=== PATIENT | male | born 1950 ===

== ENCOUNTER 2018-07-27 09:11 | Emergency (ER) | payer MEDICARE, OTHER ==
[2018-07-27 09:30] VITALS: RESP 18
--- NOTE | 2018-07-27 09:59 | ED ---
Fall HPI - General Chief Complaint: Fall Stated Complaint: Fall Time Seen by Provider: 07/27/18 09:11 Source: EMS, RN notes reviewed Mode of arrival: EMS - History of Present Illness Initial Comments: This is a 67-year-old male who states he slipped on some ice and fell but hour prior to arrival here. He was riding on the bus for about an hour complain of some back pain and right elbow pain he was brought in by EMS. He states now his elbow and pelvic area hurts no back pain. No loss of consciousness no head neck pain minute cervical collar. The loss of function to his upper or lower extremities. No other complaints or injuries reported MD Complaint: fall - Related Data Home Medications Medication Instructions Recorded Confirmed Cyanocobalamin (Vitamin B-12) 1,000 mcg PO DAILY 07/27/18 07/27/18 [Vitamin B-12] OLANZapine 7.5 mg PO HS 07/27/18 07/27/18 Polyethylene Glycol 3350 [Miralax] 17 gm PO DAILY PRN 07/27/18 07/27/18 Sennosides [Senna] 17.2 mg PO HS PRN 07/27/18 07/27/18 metFORMIN HCL ER [Glucophage Xr] 1,000 mg PO QAM 07/27/18 07/27/18 Previous Rx's Medication Instructions Recorded Ibuprofen 800 mg PO Q6HR PRN #20 tablet 07/27/18 Allergies Allergy/AdvReac Type Severity Reaction Status Date / Time Penicillins Allergy Unknown Verified 07/27/18 10:28 Review of Systems ROS Statement: Those systems with pertinent positive or pertinent negative responses have been documented in the HPI. ROS Other: All systems not noted in ROS Statement are negative. Past Medical History Past Medical History: No Reported History Past Surgical History: No Surgical Hx Reported General Exam - General Exam Comments Initial Comments: This is a well-developed well-nourished awake alert oriented times female he does them straight a Cadet Coma Scale of 15 General appearance: alert, in no apparent distress Head exam: Present: atraumatic, normocephalic, normal inspection Eye exam: Present: normal appearance, PERRL, EOMI. Absent: scleral icterus, conjunctival injection, periorbital swelling ENT exam: Present: normal exam, mucous membranes moist Neck exam: Present: normal inspection, full ROM, other (Cervical collar was in place I did remove it after examination. There is no midline spinous or paraspinous tenderness. There is some mild tenderness palpation to the mid trapezius muscle on the right). Absent: tenderness, meningismus, lymphadenopathy Respiratory exam: Present: normal lung sounds bilaterally. Absent: respiratory distress, wheezes, rales, rhonchi, stridor Cardiovascular Exam: Present: regular rate, normal rhythm, normal heart sounds. Absent: systolic murmur, diastolic murmur, rubs, gallop, clicks GI/Abdominal exam: Present: soft, normal bowel sounds. Absent: distended, tenderness, guarding, rebound, rigid Rectal exam: Present: deferred Extremities exam: Present: normal inspection, full ROM, normal capillary refill , other (Tennis palpation of the right elbow with no step-off or crepitation or is full range of motion. Additionally there is some mild tenderness palpation of the right hip and pelvis area no step-off or crepitation no shortening or rotational lower extremities.). Absent: tenderness, pedal edema, joint swelling , calf tenderness Back exam: Present: normal inspection Neurological exam: Present: alert, oriented X3, CN II-XII intact Psychiatric exam: Present: normal affect, normal mood Skin exam: Present: warm, dry, intact, normal color. Absent: rash Course Vital Signs 07/27/18 09:23 Temperature 98.1 F Pulse Rate 69 Respiratory 18 Rate Blood Pressure 143/68 O2 Sat by Pulse 96 Oximetry Medical Decision Making - Medical Decision Making I did discuss [employer] the patient he will be discharged he does have evidence of right trapezius strain as well as right elbow contusion - Radiology Data Radiology results: report reviewed (I did review the imaging and reports no acute findings.), image reviewed Disposition Clinical Impression: Fall, Contusion of right elbow, Trapezius strain Disposition: HOME SELF-CARE Condition: Good Instructions (If sedation given, give patient instructions): Fall Prevention for Older Adults (ED), Contusion in Adults (ED), Muscle Strain (ED) Prescriptions: Ibuprofen 800 mg PO Q6HR PRN #20 tablet PRN Reason: Pain Is patient prescribed a controlled substance at d/c from ED?: No Referrals: Tommy Jones MD [Primary Care Provider] - 1-2 days
--- NOTE | 2018-07-27 10:17 | XR ---
EXAMINATION TYPE: XR pelvis AP view DATE OF EXAM: 07/27/2018 CLINICAL HISTORY: Right-sided pelvic pain after fall TECHNIQUE: A single AP view of the pelvis is obtained. COMPARISON: None. FINDINGS: There is no acute fracture/dislocation evident in the pelvis. The hip and sacroiliac join ts appear symmetric and unremarkable. The overlying soft tissue appears unremarkable. IMPRESSION: There is no acute fracture or dislocation in the pelvis.
--- NOTE | 2018-07-27 10:20 | XR ---
EXAMINATION TYPE: XR cervical spine comp DATE OF EXAM: 07/27/2018 TECHNIQUE: Frontal, lateral, oblique and open mouth view of the cervical spine are obtained. HISTORY: Right-sided neck pain after a fall COMPARISON: None FINDINGS: The cervical spine is visualized in its entirety from C1 thru the top of T1 level, it is s atisfactory in alignment without evidence of acute fracture or dislocation. The pre-vertebral soft t issue appears within normal limits. Minimal multilevel degenerative disc disease is seen as multileve l uncovertebral hypertrophy. The C1-C2 articulation is within normal limits on the open mouth view. The oblique images are within normal limits. Well-corticated osseous fragments are seen in the erecto r spinae musculature and posterior to the C7 spinous process from prior injury. On the lateral view there are rounded calcifications in the region of the thyroid gland. Thyroid ultr asound is recommended for further evaluation. IMPRESSION: 1. No acute fracture or malalignment is seen in the cervical spine. Minimal multilevel degenerative d isc disease. 2. Rounded calcifications in the region of the thyroid gland. Thyroid ultrasound is recommended for f urther evaluation.
--- NOTE | 2018-07-27 10:22 | XR ---
EXAMINATION TYPE: XR elbow complete RT DATE OF EXAM: 07/27/2018 CLINICAL HISTORY: Right elbow pain after a fall TECHNIQUE: Frontal, lateral and oblique images of the right elbow are obtained. COMPARISON: None FINDINGS: There is no acute fracture/dislocation evident in the right elbow. No abnormal fat pad si gns are seen. The overlying soft tissue appears unremarkable. Atherosclerosis is noted over the vent ral forearm and lower upper extremity IMPRESSION: There is no acute fracture or dislocation in the right elbow.
[2018-07-27 10:39] VITALS: BP 111/78; PULSE 82; TEMP 98
== END 2018-07-27 10:39 | disposition home or self-care (01) ==
LOC: EC 09:11 → EEVIPCON 09:11 → EC 10:39
DX: S50.01XA Contusion of right elbow, initial encounter (principal); S46.811A Strain of other muscles, fascia and tendons at shoulder and upper arm level, right arm, initial encounter; Z79.84 Long term (current) use of oral hypoglycemic drugs; Z79.899 Other long term (current) drug therapy; Z88.0 Allergy status to penicillin; W00.0XXA Fall on same level due to ice and snow, initial encounter; Y93.I9 Activity, other involving external motion; Y92.811 Bus as the place of occurrence of the external cause
CPT/HCPCS: 72050; 72170; 99283

== ENCOUNTER 2018-12-25 08:43 | Emergency (ER) | payer MEDICARE, OTHER ==
[2018-12-25 08:59] VITALS: RESP 18
[2018-12-25 09:28] LABS: Basophils # (A) 0.1 k/uL (0-0.2); Basophils % (A) 1 %; Eosinophils # (A) 0.3 k/uL (0-0.7); Eosinophils % (A) 4 %; HCT 42.8 % (39.0-53.0); HGB 14.1 gm/dL (13.0-17.5); Lymphocytes % (A) 24 %; MCH 29.6 pg (25.0-35.0); MCHC 32.9 g/dL (31.0-37.0); MCV 89.9 fL (80.0-100.0); Monocytes # (A) 0.6 k/uL (0-1.0); Monocytes % (A) 7 %; Neutrophils # (A) 5.4 k/uL (1.3-7.7); Neutrophils % (A) 63 %; Platelet Count 206 k/uL (150-450); RBC 4.76 m/uL (4.30-5.90); RDW 14.1 % (11.5-15.5); WBC 8.6 k/uL (3.8-10.6)
[2018-12-25 09:41] LABS: ALT 25 U/L (21-72); AST 28 U/L (17-59); African American GFR (CKD) >90 (>60 ml/min/1.73 sqM); Albumin 3.9 g/dL (3.5-5.0); Alkaline Phosphatase 75 U/L (38-126); Anion Gap 13 mmol/L; Blood Urea Nitrogen 15 mg/dL (9-20); Calcium 9.2 mg/dL (8.4-10.2); Carbon Dioxide 21 mmol/L (22-30); Chloride 105 mmol/L (98-107); Glucose 142 mg/dL (74-99); Magnesium 1.9 mg/dL (1.6-2.3); Potassium 4.4 mmol/L (3.5-5.1); Sodium 139 mmol/L (137-145); Total Bilirubin 0.4 mg/dL (0.2-1.3); Total Protein 6.9 g/dL (6.3-8.2)
--- NOTE | 2018-12-25 10:04 | CT ---
EXAMINATION TYPE: CT brain wo con DATE OF EXAM: 12/25/2018 HISTORY: Probable seizure. Pain. CT DLP: 1099.4 mGycm. Automated Exposure Control for Dose Reduction was Utilized. TECHNIQUE: CT scan of the head is performed without contrast. COMPARISON: None. FINDINGS: There is no acute intracranial hemorrhage or midline shift identified. There is diffuse v entricular and sulcal prominence consistent with diffuse age-related cerebral atrophy. 4 prominent at rophy is noted over the bilateral frontal lobes There is low-attenuation in the periventricular white matter consistent with chronic small vessel ischemic change. The globes are intact and the visualiz ed sinuses are clear. IMPRESSION: No acute intracranial hemorrhage or midline shift. There is mild diffuse age-related ce rebral atrophy and chronic small vessel ischemic change with more moderate bilateral frontal lobe atr ophy noted.
--- NOTE | 2018-12-25 10:29 | ED ---
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 According to the patient is not had a seizure history. According to his medication list is not on any antiseizure medications. I see no other i ndication in the previous charting the patient has had previous seizure. According to EMS the patient was thought to be post ictal after but he also is at his baseline somewhat confused. Patient denies headache patient denies any numbness weakness. Patient denies any chest pain difficulty breathing first breath per patient denies any palpitations. Patient denies abdominal pain patient denies any recent fever chills or cough. Patient denies any nausea or vomiting. Or diarrhea. - Related Data Home Medications Medication Instructions Recorded Confirmed Cyanocobalamin (Vitamin B-12) 1,000 mcg PO DAILY 07/27/18 12/25/18 [Vitamin B-12] OLANZapine 7.5 mg PO HS 07/27/18 12/25/18 Polyethylene Glycol 3350 [Miralax] 17 gm PO DAILY PRN 07/27/18 12/25/18 Sennosides [Senna] 17.2 mg PO HS PRN 07/27/18 12/25/18 metFORMIN HCL ER [Glucophage Xr] 1,000 mg PO QAM 07/27/18 12/25/18 buPROPion XL [Wellbutrin Xl] 150 mg PO DAILY 12/25/18 12/25/18 Allergies Allergy/AdvReac Type Severity Reaction Status Date / Time Penicillins Allergy Unknown Verified 12/25/18 09:12 Review of Systems ROS Statement: Those systems with pertinent positive or pertinent negative responses have been documented in the HPI. ROS Other: All systems not noted in ROS Statement are negative. Past Medical History Past Medical History: No Reported History Past Surgical History: No Surgical Hx Reported General Exam - General Exam Comments Initial Comments: GENERAL: Patient is well-developed and well-nourished. Patient is nontoxic and well- hydrated and is in mild distress. ENT: Neck is soft and supple. No significant lymphadenopathy is noted. Oropharynx is clear. Moist mucous membranes. Neck has full range of motion without elicit ing any pain. EYES: The sclera were anicteric and conjunctiva were pink and moist. Extraocular mo vements were intact and pupils were equal round and reactive to light. Eyelids were unremarkable. PULMONARY: Unlabored respirations. Good breath sounds bilaterally. No audible rales rhonchi or wheezing was noted. CARDIOVASCULAR: There is a regular rate and rhythm without any murmurs gallops or rubs. ABDOMEN: Soft and nontender with normal bowel sounds. SKIN: Skin is clear with no lesions or rashes and otherwise unremarkable. NEUROLOGIC: Patient is alert and oriented x3. Cranial nerves II through XII are grossly intact. Motor and sensory are also intact. Normal speech, volume and content. Symmetrical smile. MUSCULOSKELETAL: Normal extremities with adequate strength and full range of motion. LYMPHATICS: No significant lymphadenopathy is noted PSYCHIATRIC: Normal psychiatric evaluation. Limitations: physical limitation Course Vital Signs 12/25/18 08:47 Temperature 97.7 F Pulse Rate 90 Respiratory 18 Rate Blood Pressure 122/78 O2 Sat by Pulse 97 Oximetry Medical Decision Making - Medical Decision Making EKG shows normal sinus rhythm at 90 bpm ME interval is 190 QRS is 84 QT interval 380 QTC is 464. Patient's EKG shows no ST segment elevation or depression or T wave abnormalities are noted. Computed tomography scan of the brain shows no acute normalities. Patient will be discharged home to follow-up with a neurologist. - Lab Data Result diagrams: 12/25/18 08:59 12/25/18 08:59 Lab Results 12/25/18 12/25/18 Range/Units 08:59 08:59 WBC 8.6 (3.8-10.6) k/uL RBC 4.76 (4.30-5.90) m/uL Hgb 14.1 (13.0-17.5) gm/dL Hct 42.8 (39.0-53.0) % MCV 89.9 (80.0-100.0) fL MCH 29.6 (25.0-35.0) pg MCHC 32.9 (31.0-37.0) g/dL RDW 14.1 (11.5-15.5) % Plt Count 206 (150-450) k/uL Neutrophils % 63 % Lymphocytes % 24 % Monocytes % 7 % Eosinophils % 4 % Basophils % 1 % Neutrophils # 5.4 (1.3-7.7) k/uL Lymphocytes # 2.0 (1.0-4.8) k/uL Monocytes # 0.6 (0-1.0) k/uL Eosinophils # 0.3 (0-0.7) k/uL Basophils # 0.1 (0-0.2) k/uL Sodium 139 (137-145) mmol/L Potassium 4.4 (3.5-5.1) mmol/L Chloride 105 (98-107) mmol/L Carbon Dioxide 21 L (22-30) mmol/L Anion Gap 13 mmol/L BUN 15 (9-20) mg/dL Creatinine 0.85 (0.66-1.25) mg/dL Est GFR (CKD-EPI)AfAm >90 (>60 ml/min/1.73 sqM) Est GFR (CKD-EPI)NonAf 90 (>60 ml/min/1.73 sqM) Glucose 142 H (74-99) mg/dL Calcium 9.2 (8.4-10.2) mg/dL Magnesium 1.9 (1.6-2.3) mg/dL Total Bilirubin 0.4 (0.2-1.3) mg/dL AST 28 (17-59) U/L ALT 25 (21-72) U/L Alkaline Phosphatase 75 (38-126) U/L Total Protein 6.9 (6.3-8.2) g/dL Albumin 3.9 (3.5-5.0) g/dL Disposition Clinical Impression: New onset seizure Disposition: HOME SELF-CARE Condition: Good Instructions (If sedation given, give patient instructions): New-Onset Seizure in Adults (ED) Additional Instructions: Patient needs to follow-up with neurology. Patient should not drive or operate any heavy machinery. Is patient prescribed a controlled substance at d/c from ED?: No Referrals: Tommy Jones MD [Primary Care Provider] - 1-2 days Time of Disposition: 10:30
[2018-12-25 11:20] VITALS: BP 118/81; PULSE 62; TEMP 98.7
== END 2018-12-25 11:20 | disposition home or self-care (01) ==
LOC: EC 08:43
DX: R56.9 Unspecified convulsions (principal); R41.0 Disorientation, unspecified; Z88.0 Allergy status to penicillin
CPT/HCPCS: 36415; 70450; 80053; 83735; 85025; 99285

== ENCOUNTER 2018-12-25 11:51 | Inpatient (IN) | payer MEDICARE, OTHER ==
--- NOTE | 2018-12-25 12:40 | ED ---
General Adult HPI - General Chief complaint: Seizure Stated complaint: Seizure Time Seen by Provider: 12/25/18 12:00 Source: RN notes reviewed, old records reviewed Limitations: altered mental status, physical limitation - History of Present Illness Initial comments: This is a 68-year-old male who presents emergency Department after having had a seizure in the hospital [facility]. Patient was seen in emergency department for a first-time seizure that lasted less than a minute admitting was negative states discharged home to follow-up with neurology. Patient was waiting in the lobby and while waiting he had a seizure that again lasted for less than 1 minute and he was post ictal. Patient is unaware of what happened to him patient has no complaints again. Patient denies any chest pain difficulty breathing shortest breath. Patient denies any headache patient denies any numbness weakness. - Related Data Home Medications Medication Instructions Recorded Confirmed Cyanocobalamin (Vitamin B-12) 1,000 mcg PO DAILY 07/27/18 12/25/18 [Vitamin B-12] OLANZapine 7.5 mg PO HS 07/27/18 12/25/18 Polyethylene Glycol 3350 [Miralax] 17 gm PO DAILY PRN 07/27/18 12/25/18 Sennosides [Senna] 17.2 mg PO HS PRN 07/27/18 12/25/18 metFORMIN HCL ER [Glucophage Xr] 1,000 mg PO QAM 07/27/18 12/25/18 buPROPion XL [Wellbutrin Xl] 150 mg PO DAILY 12/25/18 12/25/18 Allergies Allergy/AdvReac Type Severity Reaction Status Date / Time Penicillins Allergy Unknown Verified 12/25/18 12:04 Review of Systems ROS Statement: Those systems with pertinent positive or pertinent negative responses have been documented in the HPI. ROS Other: All systems not noted in ROS Statement are negative. Past Medical History Past Medical History: No Reported History Additional Past Medical History / Comment(s): 7-16 seizures History of Any Multi-Drug Resistant Organisms: Unobtainable Past Surgical History: No Surgical Hx Reported Past Psychological History: Unable to Obtain Smoking Status: Unknown if ever smoked Past Alcohol Use History: Unable to Obtain Past Drug Use History: Unable to Obtain General Exam - General Exam Comments Initial Comments: GENERAL: Patient is well-developed and well-nourished. Patient is nontoxic and well- hydrated and is in mild distress. ENT: Neck is soft and supple. No significant lymphadenopathy is noted. Oropharynx is clear. Moist mucous membranes. Neck has full range of motion without eliciting any pain. EYES: The sclera were anicteric and conjunctiva were pink and moist. Extraocular movements were intact and pupils were equal round and reactive to light. Eyelids were unremarkable. PULMONARY: Unlabored respirations. Good breath sounds bilaterally. No audible rales rhonchi or wheezing was noted. CARDIOVASCULAR: There is a regular rate and rhythm without any murmurs gallops or rubs. ABDOMEN: Soft and nontender with normal bowel sounds. SKIN: Skin is clear with no lesions or rashes and otherwise unremarkable. NEUROLOGIC: Patient is alert and oriented 2 Cranial nerves II through XII are grossly intact. Motor and sensory are also intact. Normal speech, volume and content. Symmetrical smile MUSCULOSKELETAL: Normal extremities with adequate strength and full range of motion. No lower extremity swelling or edema. No calf tenderness. LYMPHATICS: No significant lymphadenopathy is noted PSYCHIATRIC: Normal psychiatric evaluation. Limitations: altered mental status, physical limitation Course Vital Signs 12/25/18 11:58 Temperature 97.5 F L Pulse Rate 103 H Respiratory 18 Rate Blood Pressure 138/82 O2 Sat by Pulse 98 Oximetry Disposition Clinical Impression: Generalized seizure Disposition: ADMITTED IP TO THIS HOSP Referrals: Tommy Jones MD [Primary Care Provider] - 1-2 days Time of Disposition: 12:45
[2018-12-25] MEDS ORDERED: SODIUM CHLORIDE 0.9% 1,000 ML IV ONE (12:51)
[2018-12-25 14:54] LABS: Glucose,Whole Blood 108 mg/dL (75-99)
[2018-12-25] MEDS ORDERED: POLYETHYLENE GLYCOL 3350 17 GM POWD.PACK PO PRN (15:32)
[2018-12-25] MEDS ORDERED: SENNOSIDES 8.6 MG TAB PO PRN (15:32)
[2018-12-25 17:50] LABS: Glucose,Whole Blood 94 mg/dL (75-99)
[2018-12-25] MEDS: INSULIN ASPART (NovoLOG) 100 UNIT/ML VIAL SQ SCH ×2 (17:55→22:31)
[2018-12-25] MEDS ORDERED: LORazepam 2 MG/ML INJ IV PRN (19:51)
[2018-12-25 20:34] LABS: Glucose,Whole Blood 100 mg/dL (75-99)
[2018-12-25 21:24] LABS: Basophils % (A) 0 %; Eosinophils # (A) 0.3 k/uL (0-0.7); Eosinophils % (A) 2 %; HCT 41.2 % (39.0-53.0); HGB 13.6 gm/dL (13.0-17.5); Lymphocytes # (A) 2.5 k/uL (1.0-4.8); Lymphocytes % (A) 18 %; MCH 29.5 pg (25.0-35.0); MCV 89.6 fL (80.0-100.0); Mean Platelet Volume 6.7; Monocytes # (A) 0.8 k/uL (0-1.0); Monocytes % (A) 6 %; Neutrophils # (A) 10.1 k/uL (1.3-7.7); Neutrophils % (A) 73 %; Platelet Count 208 k/uL (150-450); WBC 13.9 k/uL (3.8-10.6)
[2018-12-25 21:38] LABS: ALT 27 U/L (21-72); AST 34 U/L (17-59); African American GFR (CKD) >90 (>60 ml/min/1.73 sqM); Albumin 3.6 g/dL (3.5-5.0); Alkaline Phosphatase 56 U/L (38-126); Anion Gap 8 mmol/L; Blood Urea Nitrogen 14 mg/dL (9-20); Calcium 8.9 mg/dL (8.4-10.2); Carbon Dioxide 25 mmol/L (22-30); Chloride 105 mmol/L (98-107); Glucose 100 mg/dL (74-99); Potassium 4.2 mmol/L (3.5-5.1); Sodium 138 mmol/L (137-145); Total Bilirubin 0.5 mg/dL (0.2-1.3); Total Protein 6.6 g/dL (6.3-8.2)
--- NOTE | 2018-12-25 22:33 | P.HPIM ---
History of Present Illness H&P Date: 12/25/18 Chief Complaint: Seizures History of presenting complaint: This is a 68-year-old patient who lives at the [facility]. Does use a walker to baseline.. Chronic stable medical conditions include diabetes mellitus, depression and anxiety. Patient's medications are managed by the staff. No staff is present with the patient currently. As per the ER report patient had a seizure and was brought into the ER. Since this was the first seizure patient was discharged to follow with neurology. While waiting in the waiting room to get discharge patient had another seizure. Subsequently neurology was consulted. Patient had another seizure on the arrival to the [facility] floor. [employer] neurologist was called and patient was started on IV Keppra. Seizure precautions were done. Patient not able to give much of a history as he did receive medication is somewhat in a postictal state. Laying in bed. Review of systems: Could not be obtained as patient rather lethargic but arousable Past medical history: Diabetes mellitus type 2, constipation, depression, anxiety Social history: Lives at [facility]. Has a walker. Staff manages medications. No smoking or alcohol. Family history: Because patient lethargic, unable to obtain Physical examination: VITAL SIGNS: 97.5, 103, 18, 1 38 x 82, 98% room air GENERAL: BMI 31.3, laying in bed lethargic but arousable. EYES: Pupils equal. Conjunctiva normal. HEENT: External appearance of nose and ears normal, oral cavity grossly normal. NECK: JVD not raised; masses not palpable. HEART: First and second heart sounds are normal; no edema. LUNGS: Respiratory rate normal; clear to auscultation. ABDOMEN: Soft, nontender, liver spleen not palpable, no masses palpable. PSYCH: Lethargic but arousable. May answer occasional question. Unable to assess for thel. NEUROLOGICAL: Cranial nerves grossly intact; no facial asymmetry, moving all 4 limbs on instructions. LYMPHATICS: No lymph nodes palpable in the axilla and neck INVESTIGATIONS, reviewed in the clinical context: White count 13.9 hemoglobin 13.6 platelets 208 potassium 4.2 creatinine 0.69 Assessment: -New onset of seizures, patient had 3 episodes today. Unable to obtain any other collaborating history is no staff is present. Patient is on Wellbutrin which has a low put known side effect of seizure. We'll get a psychiatry opinion on the same. -Diabetes mellitus type 2 -Obesity BMI 31.3 -Anxiety depression otherwise specified Plan: Patient admitted to the hospital. Neurology was consulted. Seizure precautions in place. Including pads. We'll to the psychiatry opinion to evaluate Wellbutrin in the setting of a seizure. Patient started on Keppra. May use Ativan when necessary for breakthrough seizure. Accu-Cheks to be followed. Lovenox for DVT prophylaxis. Past Medical History Past Medical History: Diabetes Mellitus Additional Past Medical History / Comment(s): NIDDM type II, constipation, depression, anxiety History of Any Multi-Drug Resistant Organisms: Unobtainable Past Surgical History: Tonsillectomy Past Anesthesia/Blood Transfusion Reactions: No Reported Reaction Past Psychological History: Anxiety, Depression Additional Psychological History / Comment(s): Pt resides at [facility] (ALEXANDRO Trotter @ [phone]). He uses a walker to ambulate. Staff manage his medications. Smoking Status: Never smoker Past Alcohol Use History: None Reported Past Drug Use History: None Reported - Past Family History Father Family Medical History: No Reported History Additional Family Medical History / Comment(s): Pt states his father was healthy Mother Family Medical History: Cancer Additional Family Medical History / Comment(s): Pt states his mother had some form of cancer. Medications and Allergies Home Medications Medication Instructions Recorded Confirmed Type Cyanocobalamin (Vitamin B-12) 1,000 mcg PO DAILY 07/27/18 12/25/18 History [Vitamin B-12] OLANZapine 7.5 mg PO HS 07/27/18 12/25/18 History Polyethylene Glycol 3350 [Miralax] 17 gm PO DAILY PRN 07/27/18 12/25/18 History Sennosides [Senna] 17.2 mg PO HS PRN 07/27/18 12/25/18 History metFORMIN HCL ER [Glucophage Xr] 1,000 mg PO QAM 07/27/18 12/25/18 History buPROPion XL [Wellbutrin Xl] 150 mg PO DAILY 12/25/18 12/25/18 History Allergies Allergy/AdvReac Type Severity Reaction Status Date / Time Penicillins Allergy Unknown Verified 12/25/18 12:04 Physical Exam Vitals: Vital Signs Temp Pulse Pulse Resp BP BP Pulse Ox 12/25/18 21:00 98.9 F 81 18 107/74 96 12/25/18 14:40 97.7 F 84 18 138/85 96 12/25/18 13:23 85 16 120/67 97 12/25/18 11:58 97.5 F L 103 H 18 138/82 98 Intake and Output 12/25/18 12/25/18 12/25/18 06:59 14:59 22:59 Other: # Voids 0 Weight 90.7 kg Results CBC & Chem 7: 12/25/18 21:11 12/25/18 21:11 Labs: Abnormal Lab Results - Last 24 Hours (Table) 12/25/18 12/25/18 12/25/18 Range/Units 14:41 20:33 21:11 WBC 13.9 H (3.8-10.6) k/uL Neutrophils # 10.1 H (1.3-7.7) k/uL Glucose (74-99) mg/dL POC Glucose (mg/dL) 108 H 100 H (75-99) mg/dL 12/25/18 Range/Units 21:11 WBC (3.8-10.6) k/uL Neutrophils # (1.3-7.7) k/uL Glucose 100 H (74-99) mg/dL POC Glucose (mg/dL) (75-99) mg/dL Thrombosis Risk Factor Assmnt - Choose All That Apply Each Factor Represents 1 point: Age 41-60 years Each Risk Factor Represents 2 Points: Age 61-74 years Thrombosis Risk Factor Assessment Total Risk Factor Score: 3 Thrombosis Risk Factor Assessment Level: Moderate Risk
[2018-12-25] MEDS: OLANZapine 5 MG TAB PO SCH (22:39)
[2018-12-25] MEDS: levETIRAcetam 500 MG TAB PO SCH (22:41)
[2018-12-25] MEDS: ENOXAPARIN 40 MG/0.4 ML SYRINGE SQ SCH (22:42)
[2018-12-26 07:07] LABS: Glucose,Whole Blood 97 mg/dL (75-99)
[2018-12-26] MEDS: levETIRAcetam 500 MG TAB PO SCH ×2 (09:13→21:24)
[2018-12-26] MEDS: buPROPion XL 150 MG TAB.ER.24H PO SCH (09:14)
[2018-12-26] MEDS: metFORMIN 500 MG TAB PO SCH ×2 (09:14→21:24)
[2018-12-26] MEDS: CYANOCOBALAMIN 500 MCG TAB PO SCH (09:14)
[2018-12-26] MEDS: INSULIN ASPART (NovoLOG) 100 UNIT/ML VIAL SQ SCH ×4 (09:16→21:14)
[2018-12-26 11:38] LABS: Glucose,Whole Blood 98 mg/dL (75-99)
--- NOTE | 2018-12-26 12:35 | P.CNNES ---
History of Present Illness Consult date: 12/26/18 Reason for Consult: Seizure episode Chief complaint: Seizure episode History of Present Illness: REFERRING PHYSICIAN: Dr. Sagastume HISTORY OF PRESENT ILLNESS: Thank you for allowing me to evaluate Mr. Jewel Tucker. Mr. Tucker is a 68-year-old patient with past medical history of diabetes, anxiety, depression, who lives at an assisted living facility, admitted to [facility] for seizure activity, consulting neurology for seizure. Per ER record, because this was the first seizure patient had experienced, patient was to be discharged to follow with neurology. While waiting in the waiting room, patient had another seizure. The night patient was admitted, I was called by the nurse about a possible seizure-like event. No one witnessed the event specifically, by a nurse was walking by the patient's room when she noticed that patient was agitated, his IV was pulled, and the bed rail protectors were remov ed. At that time, patient was A&O x 3, the patient fell asleep right away. Placed order to start Keppra 1000 mg by mouth twice a day along with when necessary Ativan for seizure-like activity for more than 30 minutes. Patient denies ever waking up with urinary or bowel incontinence, blood in his mouth, or feeling extremely tired. Patient does not drive. PAST MEDICAL HISTORY: As above HOME MEDICATIONS: Metformin, senna, olanzapine, vitamin B12, bupropion 150 mg by mouth daily SOCIAL HISTORY: He denies any all collar drug abuse. Also denies smoking history. Patient lives in an assisted living facility. Patient states that he graduated from high school. FAMILY HISTORY: Unknown HISTORY: Patient is not a very good historian, but he states that he was a natural . He was hospitalized when he was a child possibly for one school year for "high temperature." Denies any head trauma or car accidents. REVIEW OF SYSTEMS: The 14 systems are reviewed and no additional points are identified compared to the review of systems documented history and physical PHYSICAL EXAMINATION: VITAL SIGNS Temperature 96.0 pulse rate 72 respiratory rate 18 blood pressure 111/66 O2 sat 92% on room air GEN. Not in acute distress, cooperative, slightly slow to respond but answers most questions appropriately HEENT: NCAT, sclera without icterus NECK:Supple SKIN AND EXTREMITIES: Warm to touch, no edema Neuro: MENTAL STATUS: Patient alert and oriented to self, place, time. Able to name the current president. Speech fluent, able to name and repeat, following all commands readily. No right and left disorientation, extinction to double simultaneous stimulation, finger agnosia, neglect CRANIAL NERVES II THROUGH XII: II: Pupils are equal and reactive to light symmetrically. No afferent pupillary defect. Visual santos are intact. III, IV, : No ptosis. Extraocular movements full. No nystagmus. V: Facial sensation intact from V1-3. VII. No clear facial asymmetry. VIII: Hearing intact to finger rub bilaterally. IX, X: Symmetric palate elevation. XII: Shoulder shrug intact. XII: Tongue midline without fasciculation or atrophy MOTOR: Normal bulk/tone. No pronator drift or tremor. Strength is 5/5 throughout all 4 extremities SENSORY: Intact to light touch, temperature all 4 extremities. REFLEXES: 1+ throughout. Toes are downgoing. COORDINATION: Finger to nose intact. No dysmetria. GAIT: Attempted to walk patient using his walker, but once patient sat up, patient started endorsing headache that improve with time. When he stood up, patient reported having dizziness. DIAGNOSTIC TESTING: Laboratory: WBC 13.9 hemoglobin 13.6 platelets 208 sodium 138 potassium 4.2 CL4.2 chloride 105 CO2 25 BUN 14 creatinine 0.69 AST 34 a LT 27 alk phos 56 Imaging: CT head without contrast 12/25/2018: No acute intracranial hemorrhage or midline shift. There is mild diffuse aged related cerebral atrophy and chronic small vessel ischemic change with moderate bilateral frontal lobe atrophy noted. ASSESSMENT and PLAN: Mr. Tucker is a 68-year-old patient with past medical history of diabetes, anxiety, depression, who lives at an assisted living facility, admitted to [facility] for seizure activity, consulting neurology for seizure. Patient denies any alcohol abuse history. Patient with no obvious risk factors for seizures. Difficult to tell what type of seizure like activity patient had has there is no report of specific event on medical record. As patient was admitted to the hospital for seizure activity, although this most likely is his first lifetime event, there is no family or point is available to provide history. Patient is also a poor historian. Patient is also on bupropion, which will lower seizure threshold. The continuation of this medication should be discussed with the patient's psychiatrist. I would not take this medication abruptly. Patient should continue Keppra 1000 mg by mouth twice a day. We will obtain EEG routine today. Patient to be followed by an outpatient neurologist within 2 weeks of discharge. Discussed with patient about not aching a bath, swimming, going up on ladders, or using any dangerous or heavy machinery. Please also discussed with the living facility personnel to help guide the altaf bejarano. Past Medical History Past Medical History: Diabetes Mellitus Additional Past Medical History / Comment(s): NIDDM type II, constipation, depression, anxiety History of Any Multi-Drug Resistant Organisms: Unobtainable Past Surgical History: Tonsillectomy Past Anesthesia/Blood Transfusion Reactions: No Reported Reaction Past Psychological History: Anxiety, Depression Additional Psychological History / Comment(s): Pt resides at [facility] (ALEXANDRO Trotter @ [phone]). He uses a walker to ambulate. Staff manage his medications. Smoking Status: Never smoker Past Alcohol Use History: None Reported Past Drug Use History: None Reported - Past Family History Father Family Medical History: No Reported History Additional Family Medical History / Comment(s): Pt states his father was healthy Mother Family Medical History: Cancer Additional Family Medical History / Comment(s): Pt states his mother had some form of cancer. Medications and Allergies Home Medications Medication Instructions Recorded Confirmed Type Cyanocobalamin (Vitamin B-12) 1,000 mcg PO DAILY 07/27/18 12/25/18 History [Vitamin B-12] OLANZapine 7.5 mg PO HS 07/27/18 12/25/18 History Polyethylene Glycol 3350 [Miralax] 17 gm PO DAILY PRN 07/27/18 12/25/18 History Sennosides [Senna] 17.2 mg PO HS PRN 07/27/18 12/25/18 History metFORMIN HCL ER [Glucophage Xr] 1,000 mg PO QAM 07/27/18 12/25/18 History buPROPion XL [Wellbutrin Xl] 150 mg PO DAILY 12/25/18 12/25/18 History Allergies Allergy/AdvReac Type Severity Reaction Status Date / Time Penicillins Allergy Unknown Verified 12/25/18 12:04 Physical Examination - Vital Signs Vital Signs: Vital Signs Temp Pulse Pulse Resp BP BP Pulse Ox 12/26/18 04:53 98.8 F 75 18 100/62 95 12/26/18 00:50 81 18 12/25/18 21:00 98.9 F 81 18 107/74 96 12/25/18 14:40 97.7 F 84 18 138/85 96 12/25/18 13:23 85 16 120/67 97 Intake and Output 12/25/18 12/26/18 12/26/18 22:59 06:59 14:59 Intake Total 600 600 Balance 600 600 Intake: Intake, IV Titration 600 600 Amount Sodium Chloride 0.9% 1, 600 600 000 ml @ 75 mls/hr IV . [id number] ONE Rx#:[id number] Other: Voiding Method Toilet # Voids 1 1 Results - Laboratory Findings CBC and BMP: 12/25/18 21:11 12/25/18 21:11 Abnormal Lab Findings: Abnormal Labs 12/25/18 12/25/18 12/25/18 14:41 20:33 21:11 WBC 13.9 H Neutrophils # 10.1 H Glucose POC Glucose (mg/dL) 108 H 100 H 12/25/18 21:11 WBC Neutrophils # Glucose 100 H POC Glucose (mg/dL)
--- NOTE | 2018-12-26 15:17 | P.CN ---
Psychiatric Consult - . Consult date: 12/26/18 Consult:: 12/26/18 15:02 Identification: Patient is a 68-year-old male who was brought to the emergency room for a seizure and while awaiting discharge in the emergency room had another seizure Reason for Consult: Wellbutrin, seizures History of Present Illness: Patient's chart was reviewed, no family members were present patient was seen alone. Patient is a poor historian. Patient is unable to tell me why he is on Wellbutrin or Zyprexa. He states that he has never been admitted to an inpatient psychiatric unit and denies that he is ever felt depressed, heard voices, had visual hallucinations or felt paranoid. He denies ever feeling suicidal or making suicide attempts. Patient states that he is not sure why he was placed on the medication or who began him on the medication or when he was started on the medications. Patient states that he lived most of his life with his parents, living alone for 3-4 years while his father was in a halfway and his mother had already . He states that he got an infection in his toe which required amputation and at that time was admitted to the hospital and then sent to a halfway following his discharge and eventually transferred to his current living situation assisted living about a year ago. Patient cannot tell me if he was on these medications prior to going into the hospital or not. Patient currently is not endorsing any symptoms of psychosis, depression or lanny and states that he is been sleeping and eating fine. Past Psychiatric History: Patient is unable to give me a history of prior inpatient admissions or why he is taking Wellbutrin 150 mg in the morning and Zyprexa 7.5 mg at bedtime. 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 He states that he never and has no children. He states that he lived his whole life with his parents and spent 3-4 years alone when his father was transferred to a halfway. He states that he was then admitted for the surgical amputation of his big toe and transferred to a halfway and then a year ago to assisted living. 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 He states that he rides the bus now to the [employer] and started attending there since he lived in the assisted living facility. He states that he completed high school. Substance Use History: He denies any alcohol or drug use currently or in the past Mental status: Appearance/Attitude: Patient is dressed in a hospital gown, lying in a bed in no acute distress, makes eye contact and is cooperative Behavior: Patient does not exhibit any psychomotor agitation or retardation. Speech/Language: Patient responds to questions only, normal volume and rhythm and he is coherent Thought Process: Patient's responses are goal-directed but with little elaboration Thought Content: Patient denies auditory or visual hallucinations no delusions or paranoid ideation were elicited. Patient is unable to tell me why he is on psychiatric medications and currently denies any symptoms. Suicidal/Homicidal Ideation: Patient denies any current suicidal or homicidal ideation Sensorium/Cognition: Patient is alert and oriented to person, time and situation further cognitive testing was not performed Mood/Affect: Patient's mood was pleasant and his affect was slightly blunted Insight/Judgment: Patient's insight and judgment are limited Assessment: I spoke with the case management assistant and the patient has a guardian. Patient is unable to give me any psychiatric history and is unaware of why he is on his medications and denies any symptomatology of psychosis, lanny, depression or anxiety, currently or in the past. He denies ever making any suicide attempt s. Patient states that he lived his adult life with his parents until his father was transferred to a halfway and he lived for 3-4 years alone in a mobile home. He states that he then had to go to the hospital to have his big toe amputated and was transferred from the hospital to a halfway and a year ago placed in assisted living. Patient has never been , has no children and states that he completed high school. Diagnosis: Unspecified depressive disorder Plan: Patient is on Wellbutrin 150 mg and Zyprexa 7.5 mg and I am unaware of why the patient is on these medications or how long he has been treated with them. patient is unable to give me any history of prior psychiatric treatment or prior psychiatric symptomatology. Certainly Wellbutrin can lower the seizure thr eshold, as well as Zyprexa and would suggest that whomever is prescribing these medications for the patient consider changing his medications once he is released and sent back to the assisted living facility. I will not make any changes to his medications at this time as it is not clear to me why he is on the medications and I do not wish to cause any decompensation. Zyprexa will also certainly increase blood sugar levels, another reason to consider perhaps a different antipsychotic. Would recommend when he is discharged back to the assisted living facility that they contact the prescriber of the Wellbutrin and Zyprexa and recommend that they consider changing these medications due to his recent seizures. Patient is currently not voicing any complaints of psychosis, depression and anxiety or suicidal thoughts and so would continue these medications at this time. Give any further questions or concerns please and hesitate to contact me, I will sign off the case. 12/26/18 15:11
[2018-12-26 17:19] LABS: Glucose,Whole Blood 104 mg/dL (75-99)
[2018-12-26 20:56] LABS: Glucose,Whole Blood 113 mg/dL (75-99)
[2018-12-26] MEDS: OLANZapine 5 MG TAB PO SCH (21:24)
[2018-12-26] MEDS: ENOXAPARIN 40 MG/0.4 ML SYRINGE SQ SCH (21:25)
[2018-12-27 04:56] VITALS: PULSE 67
[2018-12-27 06:58] LABS: Glucose,Whole Blood 100 mg/dL (75-99)
[2018-12-27] MEDS: INSULIN ASPART (NovoLOG) 100 UNIT/ML VIAL SQ SCH ×2 (08:37→12:00)
[2018-12-27] MEDS: CYANOCOBALAMIN 500 MCG TAB PO SCH (09:30)
[2018-12-27] MEDS: buPROPion XL 150 MG TAB.ER.24H PO SCH (09:30)
[2018-12-27] MEDS: metFORMIN 500 MG TAB PO SCH (09:30)
[2018-12-27] MEDS: levETIRAcetam 500 MG TAB PO SCH (09:31)
[2018-12-27 11:18] LABS: Glucose,Whole Blood 123 mg/dL (75-99)
[2018-12-27 11:27] VITALS: BP 126/78; RESP 16; TEMP 97.9
--- NOTE | 2018-12-27 14:39 | EEG ---
ELECTROENCEPHALOGRAM REPORT PROCEDURE DATE: 12/27/2018 ELECTROENCEPHALOGRAM (EEG): TECHNIQUE: A routine 18 channel EEG was performed with video using the 10/20 international placement system. HISTORY: Seizure-like activity. RN believes the patient had another seizure in the night. Other medical history includes diabetes, anxiety, depression. STUDY DURATION: 23 minutes. FINDINGS: BACKGROUND: The background activity consists of 7 - 8 hertz rhythmic waveforms, progressed through both posterior quadrants. ACTIVATION: None. HYPERVENTILATION: Not performed. PHOTIC STIMULATION: Symmetric driving seen. ABNORMALITIES: Intermittent diffuse 5-7 hertz polymorphic theta range slowing was seen. IMPRESSION: Abnormal EEG. The intermittent diffuse polymorphic theta range slowing mentioned above is not epileptiform in nature. In combination with the slow background, these findings indicate mild diffuse cerebral dysfunction which may in part be due to medication effect. No seizures were recorded. No epileptiform activity was present. MMMALUL / IJN: [id number] /
--- NOTE | 2018-12-27 18:13 | P.PN ---
Progress Note - Text Progress Note Date: 12/26/18 Chief Complaint: Seizures Interval history: This is a 68-year-old patient who lives at the [facility] assisted living. Does use a walker to baseline.. Chronic stable medical conditions include diabetes mellitus, depression and anxiety. Patient's medications are managed by the staff. No staff is present with the patient currently. As per the ER report patient had a seizure and was brought into the ER. Since this was the first seizure patient was discharged to follow with neurology. While waiting in the waiting room to get discharge patient had another seizure. Subsequently neurology was consulted. Patient had another seizure on the arrival to the medical floor. Today-sitting in bed. Looking better bit. Tired. Did get Keppra. Did tolerate some diet. Review of systems: Was done for constitutional, cardiovascular, GI, pulmonary. relevant finding as above Current medications are reviewed in today state from today's electronic records: That includes Keppra Physical examination: VITAL SIGNS: 96, 72, 18, 111/66, 92% room air GENERAL: Sitting up in bed, more awake today. EYES: Pupils equal. Conjunctiva normal. HEENT: External appearance of nose and ears normal, oral cavity grossly normal. NECK: JVD not raised; masses not palpable. HEART: First and second heart sounds are normal; no edema. LUNGS: Respiratory rate normal; clear to auscultation. ABDOMEN: Soft, nontender, liver spleen not palpable, no masses palpable. PSYCH: Answering questions. NEUROLOGICAL: Cranial nerves grossly intact; no facial asymmetry, following commands. INVESTIGATIONS, reviewed in the clinical context: [id number], 104, Upon admission: White count 13.9 hemoglobin 13.6 platelets 208 potassium 4.2 creatinine 0.69 Assessment: -New diagnosis of epilepsy.. -Diabetes mellitus type 2 -Obesity BMI 31.3 -Anxiety depression otherwise specified Plan: Patient was seen by psychiatry. At this point to continue with his Wellbutrin. This will be addressed by psychiatry as an outpatient. EEG is pending. Overall looking better..
--- NOTE | 2018-12-27 18:17 | P.DS ---
Providers Date of admission: 12/25/18 12:51 Expected date of discharge: 12/27/18 Attending physician: Fabio Sagastume Consults: 12/25/18 12:51 Consult Physician Urgent Consulting Provider: Iris Sampson Consult Reason/Comments: New-onset seizures Do you want consulting provider notified?: Yes 12/25/18 22:25 Consult Physician Routine Consulting Provider: Janessa Matute Consult Reason/Comments: wellbutrin/seizures Do you want consulting provider notified?: Yes Primary care physician: [facility] Course: Hospital course: This is a 68-year-old patient who lives at the [facility] living. Does use a walker to baseline.. Chronic stable medical conditions include diabetes mellitus, depression and anxiety. Patient's medications are managed by the staff. No staff is present with the patient currently. As per the ER report patient had a seizure and was brought into the ER. Since this was the first seizure patient was discharged to follow with neurology. While waiting in the waiting room to get discharge patient had another seizure. Subsequently neurology was consulted. Patient had another seizure on the arrival to the medical floor. Patient started on Keppra. Subsequently no further episodes of seizure. Patient seen by psychiatry. Patient to continue Wellbutrin. To be addressed by his outpatient psychiatrist. To determine if it can be discontinued or tapered off or change to different medication. Consultations: Dr. Sampson from neurology Dr. Matute from psychiatry Physical examination: VITAL SIGNS: 97.9, 67, 16, 126% 8, 99% room air GENERAL: Sitting up comfortable. EYES: Pupils equal. Conjunctiva normal. HEENT: External appearance of nose and ears normal, oral cavity grossly normal. NECK: JVD not raised; masses not palpable. HEART: First and second heart sounds are normal; no edema. LUNGS: Respiratory rate normal; clear to auscultation. ABDOMEN: Soft, nontender, liver spleen not palpable, no masses palpable. PSYCH: Answering questions appropriately. NEUROLOGICAL: Cranial nerves grossly intact; no facial asymmetry, following commands. INVESTIGATIONS, reviewed in the clinical context: EKG did not show any seizure activity Upon admission: White count 13.9 hemoglobin 13.6 platelets 208 potassium 4.2 creatinine 0.69 Discharge diagnosis: -New diagnosis of epilepsy.. -Diabetes mellitus type 2 -Obesity BMI 31.3 -Anxiety depression otherwise specified Disposition: detention Patient Condition at Discharge: Stable Plan - Discharge Summary Discharge Rx Participant: No New Discharge Prescriptions: New levETIRAcetam [Keppra] 1,000 mg PO Q12HR #60 tab Continue metFORMIN HCL ER [Glucophage Xr] 1,000 mg PO QAM Sennosides [Senna] 17.2 mg PO HS PRN PRN Reason: Constipation OLANZapine 7.5 mg PO HS Cyanocobalamin (Vitamin B-12) [Vitamin B-12] 1,000 mcg PO DAILY Polyethylene Glycol 3350 [Miralax] 17 gm PO DAILY PRN PRN Reason: Constipation buPROPion XL [Wellbutrin XL] 150 mg PO DAILY Discharge Medication List Cyanocobalamin (Vitamin B-12) [Vitamin B-12] 1,000 mcg PO DAILY 07/27/18 [History] OLANZapine 7.5 mg PO HS 07/27/18 [History] Polyethylene Glycol 3350 [Miralax] 17 gm PO DAILY PRN 07/27/18 [History] Sennosides [Senna] 17.2 mg PO HS PRN 07/27/18 [History] metFORMIN HCL ER [Glucophage Xr] 1,000 mg PO QAM 07/27/18 [History] buPROPion XL [Wellbutrin XL] 150 mg PO DAILY 12/25/18 [History] levETIRAcetam [Keppra] 1,000 mg PO Q12HR #60 tab 12/27/18 [Rx] Follow up Appointment(s)/Referral(s): own-psychiatristdr [Other] - 1 Week (to review wellbutrin) Tommy Jones MD [Primary Care Provider] - 1-2 days (Home to call Dr. Jones's office to set up an appointment. ) Patient Instructions/Handouts: New-Onset Seizure in Adults (DC) Discharge Disposition: HOME SELF-CARE
--- NOTE | 2018-12-27 20:50 | P.PN ---
Progress Note - Text Progress Note Date: 12/27/18 SUBJECTIVE/INTERVAL EVENTS: No acute overnight events. No seizure-like activity. Patient denies any headache, nausea, vomiting, weakness, numbness, tingling or vision deficits. No anxiety. VITAL SIGNS: T GEN.: NAD, semi-cooperative, appearing annoyed during eval HEENT: NCAT, sclera without icterus NECK: Supple SKIN AND EXTREMITIES: Warm to touch, no edema Neuro: MENTAL STATUS: Patient alert and oriented to self, place, time. Able to name the current president. Speech fluent, able to name and repeat, following all commands readily although slightly slow to respond CRANIAL NERVES II THROUGH XII: II: Pupils are equal and reactive to light symmetrically. No afferent pupillary defect. Visual santos are intact. III, IV, : No ptosis. Extraocular movements full. No nystagmus. V: Facial sensation intact from V1-3. VII. No clear facial asymmetry. VIII: Hearing intact to finger rub bilaterally. IX, X: Symmetric palate elevation. XII: Shoulder shrug intact. XII: Tongue midline without fasciculation or atrophy. MOTOR: Normal bulk/tone. Strength is 5/5 in all 4 extremities SENSORY: Intact to light touch in all 4 extremities. COORDINATION: Finger to nose intact. No dysmetria DIAGNOSTIC TESTING: Laboratory: WBC 13.9 hemoglobin 13.6 platelets 208 sodium 138 potassium 4.2 CL4.2 chloride 105 CO2 25 BUN 14 creatinine 0.69 AST 34 a LT 27 alk phos 56 Imaging: CT head without contrast 12/25/2018: No acute intracranial hemorrhage or midline shift. There is mild diffuse aged related cerebral atrophy and chronic small vessel ischemic change with moderate bilateral frontal lobe atrophy noted. EEG 12/26/18: Abnormal EEG. Intermittent diffuse polymorphic theta range slowing not epileptiform in nature. In combination with the slow background, these findings indicate mild diffuse cerebral dysfunction which may in part be due to medication effect. No seizures were recorded. no epileptiform activity was present. ASSESSMENT and PLAN: Mr. Tucker is a 68-year-old patient with past medical history of diabetes, anxiety, depression, who lives at an assisted living facility, admitted to [facility] for seizure activity, consulting neurology for seizure. Patient denies any alcohol abuse history. Patient with no obvious risk factors for seizures. Difficult to tell what type of seizure like activity patient had has there is no report of specific event on medical record. As patient was admitted to the hospital for seizure activity, although this most likely is his first lifetime event, there is no family or point is available to provide history. Patient is also a poor historian. Patient is also on bupropion, which will lower seizure threshold. The continuation of this medication should be discussed with the patient's psychiatrist. I would not take this medication abruptly. Patient should continue Keppra 1000 mg by mouth twice a day. Routine EEG showed intermittnet diffuse polymorphic theta range activity, which was not epileptiform in nature. Does not rule out seizure disorder, however. Patient to be followed by an outpatient neurologist within 2 weeks of discharge. Discussed with patient about not aching a bath, swimming, going up on ladders, or using any dangerous or heavy machinery. Please also discussed with the [facility] personnel to help guide the patient.
== END 2018-12-27 13:40 | disposition home or self-care (01) | DRG 101 ==
LOC: EC 11:51 → 3NMEDONC 12:51
PROVIDERS: ADMIT Hospitalist; ATTEND Hospitalist
DX: G40.909 Epilepsy, unspecified, not intractable, without status epilepticus (principal); E11.9 Type 2 diabetes mellitus without complications; E66.9 Obesity, unspecified; F41.8 Other specified anxiety disorders; K59.00 Constipation, unspecified; Z68.31 Body mass index [BMI] 31.0-31.9, adult; Z88.0 Allergy status to penicillin; Z79.84 Long term (current) use of oral hypoglycemic drugs; Z79.899 Other long term (current) drug therapy; Z80.9 Family history of malignant neoplasm, unspecified; Z90.89 Acquired absence of other organs
CPT/HCPCS: 80053; 85025; 95816; 99285

== ENCOUNTER 2019-03-06 10:26 | Inpatient (IN) | payer MEDICARE, OTHER ==
--- NOTE | 2019-03-06 11:17 | ED ---
Seizure HPI <Miles Gabriel - Last Filed: 03/06/19 14:18> - General Source: patient, EMS Mode of arrival: EMS Limitations: altered mental status <Shell Mcghee - Last Filed: 03/06/19 15:55> - General Chief Complaint: Seizure Stated Complaint: seizure Time Seen by Provider: 03/06/19 10:41 - History of Present Illness Initial Comments: Patient is a 68-year-old male with past medical history of diabetes, anxiety, depression, presenting to the emergency department via EMS after having a seizure a group activity home higher to arrival. The seizure was witnessed and lasted approximately 3-4 minutes. Patient does live in a half-way however he does not remember the name of it. Patient appears to be post ictal. Patient denies he has had seizures in the past however Patient was in the ER appr oximately 2 months ago for seizures. Patient was supposed to have neurology follow-up. It is unknown if he did follow-up. Patient is not a good historian. Guardian was called and is supposed to be on the way. Patient states he has some pain in his left forearm as well as mild head pain. Patient denies fever, chills, nausea, vomiting. No other complaints at this time. Upon arrival to ER, vital signs are stable. (Shell Mcghee) - Related Data Home Medications Medication Instructions Recorded Confirmed Cyanocobalamin (Vitamin B-12) 1,000 mcg PO DAILY 07/27/18 03/06/19 [Vitamin B-12] OLANZapine 7.5 mg PO HS 07/27/18 03/06/19 Polyethylene Glycol 3350 [Miralax] 17 gm PO DAILY PRN 07/27/18 03/06/19 Sennosides [Senna] 17.2 mg PO HS PRN 07/27/18 03/06/19 metFORMIN HCL ER [Glucophage Xr] 1,000 mg PO QAM 07/27/18 03/06/19 buPROPion XL [Wellbutrin XL] 150 mg PO DAILY 12/25/18 03/06/19 Previous Rx's Medication Instructions Recorded levETIRAcetam [Keppra] 1,000 mg PO Q12HR #60 tab 12/27/18 Allergies Allergy/AdvReac Type Severity Reaction Status Date / Time Penicillins Allergy Unknown Verified 03/06/19 10:58 Review of Systems ROS Other: All systems not noted in ROS Statement are negative. <Miles Gabriel - Last Filed: 03/06/19 14:18> ROS Other: All systems not noted in ROS Statement are negative. <Shell Mcghee - Last Filed: 03/06/19 15:55> ROS Statement: Those systems with pertinent positive or pertinent negative responses have been documented in the HPI. Past Medical History Past Medical History: Diabetes Mellitus Additional Past Medical History / Comment(s): NIDDM type II, constipation, depression, anxiety History of Any Multi-Drug Resistant Organisms: Unobtainable Past Surgical History: Tonsillectomy Past Anesthesia/Blood Transfusion Reactions: No Reported Reaction Past Psychological History: Anxiety, Depression Smoking Status: Never smoker Past Alcohol Use History: None Reported Past Drug Use History: None Reported - Past Family History Father Family Medical History: No Reported History Additional Family Medical History / Comment(s): Pt states his father was healthy Mother Family Medical History: Cancer Additional Family Medical History / Comment(s): Pt states his mother had some form of cancer. <Shell Mcghee - Last Filed: 03/06/19 15:55> General Exam Limitations: altered mental status <Shell Mcghee - Last Filed: 03/06/19 15:55> - General Exam Comments Initial Comments: GENERAL: Well-nourished and in no acute distress. Appears post ictal HEAD: Atraumatic, normocephalic. Mild abrasion to the posterior aspect. No pain with palpation EYES: Pupils equal round and reactive to light, extraocular movements intact, sclera anicteric, conjunctiva are normal. ENT: TMs normal, nares patent, oropharynx clear without exudates. Moist mucous membranes. NECK: Normal range of motion, supple without lymphadenopathy or JVD. LUNGS: Breath sounds clear to auscultation bilaterally and equal. No wheezes rales or rhonchi. HEART: Regular rate and rhythm without murmurs, rubs or gallops. ABDOMEN: Soft, nontender, normoactive bowel sounds. No guarding, no rebound. No masses appreciated. : Deferred EXTREMITIES: Normal range of motion, no pitting or edema. No clubbing or cyanosis. NEUROLOGICAL: Cranial nerves II through XII grossly intact. Normal speech, normal gait. PSYCH: Normal mood, normal affect. SKIN: Warm, Dry, normal turgor, no rashes or lesions noted. (Shell Mcghee) Course <Miles Gabriel - Last Filed: 03/06/19 14:18> Vital Signs 03/06/19 03/06/19 10:31 13:22 Temperature 97.5 F L Pulse Rate 89 109 H Respiratory 18 14 Rate Blood Pressure 114/74 178/77 O2 Sat by Pulse 93 L 98 Oximetry - Reevaluation(s) Reevaluation #1: 03/06/19 14:19 PA supervision: I proceeded a [id number] evaluation the patient he did have recurrent seizure after IV medication was given. The seizure lasted approximately 2 minutes and was tonic-clonic in nature. Patient will be admitted for further evaluation I did discuss the case with Dr. Sagastume. (Miles Gabriel) Medical Decision Making - Lab Data Result diagrams: 03/06/19 10:40 03/06/19 10:40 <Miles Gabriel - Last Filed: 03/06/19 14:18> - Lab Data Result diagrams: 03/06/19 10:40 03/06/19 10:40 <Shell Mcghee - Last Filed: 03/06/19 15:55> - Medical Decision Making Patient is a 68-year-old male presenting via EMS after a seizure at a group activity home today. Patient has history of seizures. Patient is supposed to be on Keppra twice a day. Patient does live in a half-way. Upon arrival to ER, vital signs are stable. Patient exam is unremarkable except for a small abrasion to his head. Patient is denying headache at this time. CBC, CMP, UA are all within normal limits. EKG is normal. CT shows no acute intracranial hemorrhage or midline shift. No substantial change from prior in December. Spoke with Rose Marie at his half-way who states he did have follow-up with the neurology and they are currently weaning him off his Keppra. He is currently taking 750 mg twice a day. And he has been getting his 2 doses. Case is discussed with Dr. Gabriel. Patient was being ready to be discharged when he had another seizure witnessed by nurses that lasting 1-2 minutes. Patient was given Ativan and 1 g of Keppra. Patient has been postictal since. Patient will be admitted with neurology consult. (Shell Mcghee) - Lab Data Lab Results 03/06/19 03/06/19 03/06/19 Range/Units 10:40 10:40 11:50 WBC 10.8 H (3.8-10.6) k/uL RBC 4.85 (4.30-5.90) m/uL Hgb 14.7 (13.0-17.5) gm/dL Hct 43.5 (39.0-53.0) % MCV 89.8 (80.0-100.0) fL MCH 30.3 (25.0-35.0) pg MCHC 33.8 (31.0-37.0) g/dL RDW 13.2 (11.5-15.5) % Plt Count 198 (150-450) k/uL Neutrophils % 75 % Lymphocytes % 16 % Monocytes % 6 % Eosinophils % 1 % Basophils % 1 % Neutrophils # 8.1 H (1.3-7.7) k/uL Lymphocytes # 1.7 (1.0-4.8) k/uL Monocytes # 0.6 (0-1.0) k/uL Eosinophils # 0.1 (0-0.7) k/uL Basophils # 0.1 (0-0.2) k/uL Sodium 140 (137-145) mmol/L Potassium 4.7 (3.5-5.1) mmol/L Chloride 106 (98-107) mmol/L Carbon Dioxide 20 L (22-30) mmol/L Anion Gap 14 mmol/L BUN 19 (9-20) mg/dL Creatinine 0.84 (0.66-1.25) mg/dL Est GFR (CKD-EPI)AfAm >90 (>60 ml/min/1.73 sqM) Est GFR (CKD-EPI)NonAf >90 (>60 ml/min/1.73 sqM) Glucose 109 H (74-99) mg/dL Calcium 9.1 (8.4-10.2) mg/dL Total Bilirubin 0.6 (0.2-1.3) mg/dL AST 36 (17-59) U/L ALT 23 (21-72) U/L Alkaline Phosphatase 63 (38-126) U/L Total Protein 7.4 (6.3-8.2) g/dL Albumin 4.1 (3.5-5.0) g/dL Urine Color Yellow Urine Appearance Clear (Clear) Urine pH 5.0 (5.0-8.0) Ur Specific [place] 1.022 (1.001-1.035) Urine Protein Trace H (Negative) Urine Glucose (UA) Negative (Negative) Urine Ketones Trace H (Negative) Urine Blood Negative (Negative) Urine Nitrite Negative (Negative) Urine Bilirubin Negative (Negative) Urine Urobilinogen <2.0 (<2.0) mg/dL Ur Leukocyte Esterase Negative (Negative) - EKG Data EKG Comments: Ventricular rate 87, P interval 186, QTC 457. Normal sinus rhythm. No ST segment changes. (Shell Mcghee) Disposition <Miles Gabriel - Last Filed: 03/06/19 14:18> Is patient prescribed a controlled substance at d/c from ED?: No Decision Date: 03/06/19 Decision Time: 14:33 <Shell Mcghee - Last Filed: 03/06/19 15:55> Clinical Impression: Generalized seizure Disposition: ADMITTED IP TO THIS [facility] Condition: Stable
[2019-03-06 11:19] LABS: Basophils # (A) 0.1 k/uL (0-0.2); Basophils % (A) 1 %; Eosinophils # (A) 0.1 k/uL (0-0.7); Eosinophils % (A) 1 %; HCT 43.5 % (39.0-53.0); HGB 14.7 gm/dL (13.0-17.5); Lymphocytes # (A) 1.7 k/uL (1.0-4.8); Lymphocytes % (A) 16 %; MCH 30.3 pg (25.0-35.0); MCHC 33.8 g/dL (31.0-37.0); MCV 89.8 fL (80.0-100.0); Mean Platelet Volume 7.2; Monocytes # (A) 0.6 k/uL (0-1.0); Monocytes % (A) 6 %; Neutrophils # (A) 8.1 k/uL (1.3-7.7); Neutrophils % (A) 75 %; Platelet Count 198 k/uL (150-450); RBC 4.85 m/uL (4.30-5.90); RDW 13.2 % (11.5-15.5); WBC 10.8 k/uL (3.8-10.6)
[2019-03-06 11:34] LABS: ALT 23 U/L (21-72); AST 36 U/L (17-59); African American GFR (CKD) >90 (>60 ml/min/1.73 sqM); Albumin 4.1 g/dL (3.5-5.0); Alkaline Phosphatase 63 U/L (38-126); Anion Gap 14 mmol/L; Blood Urea Nitrogen 19 mg/dL (9-20); Calcium 9.1 mg/dL (8.4-10.2); Carbon Dioxide 20 mmol/L (22-30); Chloride 106 mmol/L (98-107); Glucose 109 mg/dL (74-99); Sodium 140 mmol/L (137-145); Total Bilirubin 0.6 mg/dL (0.2-1.3); Total Protein 7.4 g/dL (6.3-8.2)
[2019-03-06 11:40] LABS: Potassium 4.7 mmol/L (3.5-5.1)
--- NOTE | 2019-03-06 11:47 | CT ---
EXAMINATION TYPE: CT brain wo con DATE OF EXAM: 03/06/2019 HISTORY: Seizure CT DLP: 1102.4 mGycm. Automated Exposure Control for Dose Reduction was Utilized. TECHNIQUE: CT scan of the head is performed without contrast. COMPARISON: CT brain December 25, 2018. FINDINGS: There is no acute intracranial hemorrhage or midline shift identified. There is diffuse v entricular and sulcal prominence consistent with diffuse cerebral atrophy findings are most prominent over the bilateral frontal lobes similar to prior.. There is low-attenuation in the periventricular white matter consistent with chronic small vessel ischemic change. The globes are intact and the vi sualized sinuses are clear. Nasal septum is deviated to right of midline. IMPRESSION: No acute intracranial hemorrhage or midline shift. There is [id number] diffuse ce rebral atrophy most prominent over bilateral frontal lobes and mild chronic small vessel ischemic dario nge redemonstrated. No significant change from prior.
[2019-03-06 12:05] LABS: Appearance,Urine Clear (Clear); Bilirubin,Urine Negative (Negative); Blood,Urine Negative (Negative); Color,Urine Yellow; Glucose,Urine (UA) Negative (Negative); Ketones,Urine Trace (Negative); Leukocyte Esterase,Urine Negative (Negative); Nitrite,Urine Negative (Negative); Protein,Urine Trace (Negative); Specific Gravity,Urine 1.022 (1.001-1.035); Urobilinogen,Urine <2.0 mg/dL (<2.0)
[2019-03-06] MEDS ORDERED: LORazepam 2 MG/ML INJ IV STA (13:17)
[2019-03-06] MEDS ORDERED: levETIRAcetam IV 1,000 MG in SALINE 1 100ML.BAG IVPB STA (13:29)
[2019-03-06] MEDS ORDERED: traMADol 50 MG TAB PO PRN (14:11)
[2019-03-06] MEDS ORDERED: ONDANSETRON 4 MG/2 ML VIAL IVP PRN (14:11)
[2019-03-06] MEDS ORDERED: NALOXONE 0.4 MG/ML 1 ML VIAL IV PRN (14:11)
[2019-03-06] MEDS ORDERED: ACETAMINOPHEN TAB 325 MG TAB PO PRN (14:11)
[2019-03-06] MEDS ORDERED: POLYETHYLENE GLYCOL 3350 17 GM POWD.PACK PO PRN (16:20)
[2019-03-06] MEDS ORDERED: SENNOSIDES 8.6 MG TAB PO PRN (16:20)
[2019-03-06] MEDS ORDERED: buPROPion XL 150 MG TAB.ER.24H PO SCH (16:30)
--- NOTE | 2019-03-06 18:42 | P.CNNES ---
History of Present Illness Consult date: 03/06/19 Requesting physician: Shell Mcghee Reason for Consult: Seizures Chief complaint: Seizures History of Present Illness: This is a 68 RH male who was seen by neurology back in 12/2018 for new-onset seizure. He had 2 seizures on the same day on 12/25/18 and was admitted to the hospital for stabilization and work-up. He was seen by neurology Dr. Sampson, who noted no h/o EtOH use. He was started on LEV 1g po q12h. CT Head and EEG were unrevealing. He was then on bupropion that was discontinued. He was then discharged to follow up with outpatient neurology. I do not have any records available for review, but per ER who was able to get in touch with someone at his shelter, patient was in fact in the process of getting tapered off of his AED. Prior to his seizure today, he was taking 750mg po bid. Patient had one witnessed seizure at the shelter and was brought into the ER. The shelter manages his meds and reported that he had been getting his AED prior to today's seizure. The ER was getting ready to discharge him when he had another witnessed seizure lasting 1-2 minutes. Details are unknown. Unclear if he had tonic-clonic activity, tongue biting or bowel/bladder incontinence. He did have post-ictal confusion. He was given Ativan 2mg and loaded on LEV 1g IV. His maintenance was bumped back up to 1g po q12h. Patient is a poor historian; does not know what meds he takes and does not know what happened today. He also does not recall going to an outpatient neurologist. My historical information was obtained by reviewing available medical records in EMR. Review of Systems Unable to obtain from patient due to AMS. Past Medical History Past Medical History: Diabetes Mellitus, Seizure Disorder Additional Past Medical History / Comment(s): NIDDM type II, constipation History of Any Multi-Drug Resistant Organisms: Unobtainable Past Surgical History: Tonsillectomy Past Anesthesia/Blood Transfusion Reactions: No Reported Reaction Smoking Status: Never smoker - Past Family History Father Family Medical History: No Reported History Additional Family Medical History / Comment(s): Pt states his father was healthy Mother Family Medical History: Cancer Additional Family Medical History / Comment(s): Pt states his mother had some form of cancer. Medications and Allergies Home Medications Medication Instructions Recorded Confirmed Type Cyanocobalamin (Vitamin B-12) 1,000 mcg PO DAILY 07/27/18 03/06/19 History [Vitamin B-12] OLANZapine 7.5 mg PO HS 07/27/18 03/06/19 History Polyethylene Glycol 3350 [Miralax] 17 gm PO DAILY PRN 07/27/18 03/06/19 History Sennosides [Senna] 17.2 mg PO HS PRN 07/27/18 03/06/19 History metFORMIN HCL ER [Glucophage Xr] 1,000 mg PO QAM 07/27/18 03/06/19 History buPROPion XL [Wellbutrin XL] 150 mg PO DAILY 12/25/18 03/06/19 History levETIRAcetam [Keppra] 1,000 mg PO Q12HR #60 tab 12/27/18 03/06/19 Rx Allergies Allergy/AdvReac Type Severity Reaction Status Date / Time Penicillins Allergy Unknown Verified 03/06/19 10:58 Physical Examination - Vital Signs Vital Signs: Vital Signs Temp Pulse Resp BP Pulse Ox 03/06/19 16:47 98.4 F 95 16 125/87 95 03/06/19 13:22 109 H 14 178/77 98 03/06/19 10:31 97.5 F L 89 18 114/74 93 L Intake and Output 03/06/19 03/06/19 03/06/19 06:59 14:59 22:59 Other: Weight 99.79 kg Gen NAD Pleasant and cooperative HEENT NCAT Sclera without icterus +Left tongue lac no active bleeding o/w O/P clear Neck Supple No carotid bruit Cor RRR no m/r/g Lungs CTAB Abd Soft NTND +BS Ext Warm to touch No edema Neuro MS Somnolent but arousable to normal voice oriented to [facility] and person thinks it's February 1990 and the season is spring Able to identify the [place] 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 Able to follow all basic commands CN PERRL VFF no APD EOMI no nystagmus or IGOR No facial asymmetry Masseter's symmetric Hearing intact to normal voice bilaterally Speech not dysarthric Equal elevation of palate Tongue midline Sym shrug and SCM bilaterally Motor Normal bulk/tone No pronator drift No tremors Strength 5/5 sym throughout Sens Intact to LT x4 No neglect Coord No dysmetria on FTN bilaterally DTRs 2+/4 sym throughout Toes downgoing bilaterally No clonus at achilles Gait Deferred Results - Laboratory Findings CBC and BMP: 03/06/19 10:40 03/06/19 10:40 Abnormal Lab Findings: Abnormal Labs 03/06/19 03/06/19 03/06/19 10:40 10:40 11:50 WBC 10.8 H Neutrophils # 8.1 H Carbon Dioxide 20 L Glucose 109 H Urine Protein Trace H Urine Ketones Trace H - Diagnostic Findings Additional findings: CT Head wo cont 03/06/19. Moderate global atrophy. Small vessel disease. No ICH. Nil acute. EEG 12/27/18. Diffuse polymorphic theta slowing. No EPD. I have reviewed neuroimages myself. Assessment and Plan Assessment: Relatively new-onset recurrent seizures with breakthrough with AED taper attempt Plan: -s/p LEV 1g IV load -Continue LEV 1g po q12h -Send LEV trough level in am -Ativan prn breakthrough -His bupropion is still on his outpatient med list. I have discontinued it again as it is known to lower seizure threshold especially at or above 300mg/day -Seizure precautions -Patient does not drive. Patient also warned against engaging in any activity that may endanger himself and/or others should he have recurrent seizure activity -Outpatient neuro followup in 1 week after discharge -If he remains seizure-free x 24 hours, may discharge from acute care -d/w patient in detail. All questions answered. Thank you for this consultation. Please call with ?. Time with Patient: Greater than 30 (Time spent in direct patient care, greater than 50% of which was spent in [id number] counseling and coordination of care: 70 minutes)
[2019-03-06] MEDS: SODIUM CHLORIDE 0.9% 1,000 ML IV SCH (19:44)
[2019-03-06 20:52] LABS: Glucose,Whole Blood 95 mg/dL (75-99)
[2019-03-06] MEDS: CYANOCOBALAMIN 500 MCG TAB PO SCH (21:22)
[2019-03-06] MEDS: levETIRAcetam 500 MG TAB PO SCH (21:22)
[2019-03-06] MEDS: OLANZapine 2.5 MG TAB PO SCH (21:50)
--- NOTE | 2019-03-07 08:08 | P.PN ---
Subjective Progress Note Date: 03/07/19 Principal diagnosis: Recurrent seizures No seizure or other acute events O/N. Bupropion stopped. Continued on LEV 1g po q12h. Patient without c/o. Objective - Vital Signs Vital signs: Vital Signs Temp 97.9 F 03/07/19 07:00 Pulse 82 03/07/19 07:00 Resp 18 03/07/19 07:00 BP 100/65 03/07/19 07:00 Pulse Ox 95 03/07/19 07:00 Intake & Output 03/06/19 03/07/19 03/07/19 18:59 06:59 18:59 Intake Total 500 180 Balance 500 180 Weight 99.79 kg Intake: Oral 500 180 Other: Voiding Method Urinal # Voids 2 # Bowel Movements 1 # Emeses 0 - Exam Gen NAD Pleasant and cooperative MS A+Ox2 Normal fluency Able to follow all commands CN II-XII grossly intact no nystagmus Motor Normal bulk/tone No tremors Strength 5/5 sym throughout Sens Intact to LT x4 Coord No dysmetria on FTN bilaterally DTRs 2+/4 sym throughout Gait Deferred - Labs CBC & Chem 7: 03/06/19 10:40 03/06/19 10:40 Labs: Abnormal Lab Results - Last 24 Hours (Table) 03/06/19 03/06/19 03/06/19 Range/Units 10:40 10:40 11:50 WBC 10.8 H (3.8-10.6) k/uL Neutrophils # 8.1 H (1.3-7.7) k/uL Carbon Dioxide 20 L (22-30) mmol/L Glucose 109 H (74-99) mg/dL Urine Protein Trace H (Negative) Urine Ketones Trace H (Negative) Assessment and Plan Assessment: Relatively new-onset recurrent seizures with breakthrough with AED taper attempt; has remained seizure-free since LEV reload Plan: -s/p LEV 1g IV load -Continue LEV 1g po q12h -LEV trough level sent this am; will take a couple days to return -Ativan prn breakthrough -Bupropion stopped. It should be deleted from his outpatient med list -Seizure precautions -Patient does not drive. Patient also warned against engaging in any activity that may endanger himself and/or others should he have recurrent seizure activity -d/w patient in detail. All questions answered -If he remains seizure-free x 24 hours, may discharge from acute care and plan for follow-up with neurology in 1 week. Thank you again for this consultation. Please call with ?. Time with Patient: Less than 30 (Time spent in direct patient care, greater than 50% of which was spent in [id number] counseling and coordination of care: 25 minutes)
[2019-03-07] MEDS: levETIRAcetam 500 MG TAB PO SCH ×2 (08:11→20:53)
[2019-03-07] MEDS: CYANOCOBALAMIN 500 MCG TAB PO SCH (08:12)
[2019-03-07] MEDS: metFORMIN 500 MG TAB PO SCH ×2 (08:12→20:54)
[2019-03-07] MEDS: SODIUM CHLORIDE 0.9% 1,000 ML IV SCH (10:11)
--- NOTE | 2019-03-07 16:30 | P.HPIM ---
History of Present Illness H&P Date: 03/07/19 Chief Complaint: Procedures Chief Complaint: Seizures History of presenting complaint: This is a 68-year-old patient who lives at the [facility]. Does use a walker to baseline.. Chronic stable medical conditions include diabetes mellitus, depression and anxiety. Patient's medications are managed by the staff. Patient was here in December of this year. Had at least 2 seizures on that presentation.. Was put on Keppra. EEG done that time did not show any seizure activity. The did show mild diffuse cerebral dysfunction. Patient now presented to the ER. Patient had a witnessed seizure at the home. Lasted about 3-4 minutes. He was post ictal in the ER. Per information patient was being weaned off of his Keppra. Also patient has been on Wellbutrin. Seen by psychiatrist on the last visit. He was left on the same and the plan was for outpatient psychiatry to determine if he can continue the same or not. Review of systems: GEN.: Tired EYES: [None] HEENT: [None] NECK: [None] RESPIRATORY: [None] CARDIOVASCULAR: [None] GASTROINTESTINAL: [None] GENITOURINARY: [None] MUSCULOSKELETAL: [None] LYMPHATICS: [None] HEMATOLOGICAL: [None] PSYCHIATRY: [A bit forgetful] NEUROLOGICAL: [None] Past medical history: Diabetes mellitus type 2, constipation, depression, anxiety Social history: Lives at [facility]. Has a walker. Staff manages medications. No smoking or alcohol. Family history: Patient cannot tell Physical examination: VITAL SIGNS: 97.5, 89, 18, 114/74, 93% room air GENERAL: BMI 32.5 sitting at the edge of bed, a bit tired. EYES: Pupils equal. Conjunctiva normal. HEENT: External appearance of nose and ears normal, oral cavity grossly normal. NECK: JVD not raised; masses not palpable. HEART: First and second heart sounds are normal; no edema. LUNGS: Respiratory rate normal; clear to auscultation. ABDOMEN: Soft, nontender, liver spleen not palpable, no masses palpable. PSYCH: Able to answer questions. NEUROLOGICAL: Cranial nerves grossly intact; no facial asymmetry, moving all 4 limbs on instructions. LYMPHATICS: No lymph nodes palpable in the axilla and neck INVESTIGATIONS, reviewed in the clinical context: White count 10.8 hemoglobin 14.7 potassium 4.7 creatinine 0.84 UA negative for infection Assessment: -Recurrent tonic-clonic seizures and the patient was started on antiepileptic drugs in December of this year. EEG that time was negative for epilepsy. Apparently patient was being weaned off these drugs as an outpatient. Has now presented yet again with seizures. -Diabetes mellitus type 2 -Obesity BMI 32.5 -Anxiety depression otherwise specified Plan: Neuro checks are in place. Seizure precautions. Neurology was consulted. Dr. Cee did stop patient is Wellbutrin. Patient's been continued on Keppra. Psychiatry will be consulted in view of seeing what can be substituted for the Wellbutrin. Past Medical History Past Medical History: Diabetes Mellitus, Seizure Disorder Additional Past Medical History / Comment(s): NIDDM type II, constipation History of Any Multi-Drug Resistant Organisms: Unobtainable Past Surgical History: Tonsillectomy Past Anesthesia/Blood Transfusion Reactions: No Reported Reaction Smoking Status: Never smoker - Past Family History Father Family Medical History: No Reported History Additional Family Medical History / Comment(s): Pt states his father was healthy Mother Family Medical History: Cancer Additional Family Medical History / Comment(s): Pt states his mother had some form of cancer. Medications and Allergies Home Medications Medication Instructions Recorded Confirmed Type Cyanocobalamin (Vitamin B-12) 1,000 mcg PO DAILY 07/27/18 03/06/19 History [Vitamin B-12] OLANZapine 7.5 mg PO HS 07/27/18 03/06/19 History Polyethylene Glycol 3350 [Miralax] 17 gm PO DAILY PRN 07/27/18 03/06/19 History Sennosides [Senna] 17.2 mg PO HS PRN 07/27/18 03/06/19 History metFORMIN HCL ER [Glucophage Xr] 1,000 mg PO QAM 07/27/18 03/06/19 History buPROPion XL [Wellbutrin XL] 150 mg PO DAILY 12/25/18 03/06/19 History levETIRAcetam [Keppra] 1,000 mg PO Q12HR #60 tab 12/27/18 03/06/19 Rx Allergies Allergy/AdvReac Type Severity Reaction Status Date / Time Penicillins Allergy Unknown Verified 03/06/19 10:58 Physical Exam Vitals: Vital Signs Temp Pulse Pulse Resp BP BP Pulse Ox 09/26/19 08:00 18 03/07/19 07:00 97.9 F 82 18 100/65 95 03/07/19 00:00 18 03/06/19 20:00 98.0 F 96 18 122/48 03/06/19 19:15 95 03/06/19 19:06 88 18 03/06/19 18:43 98.8 F 88 16 119/75 95 03/06/19 16:47 98.4 F 95 16 125/87 95 03/06/19 13:22 109 H 14 178/77 98 Intake and Output 03/06/19 03/07/19 03/07/19 22:59 06:59 14:59 Intake Total 500 0 180 Balance 500 0 180 Intake: Oral 500 0 180 Other: Voiding Method Urinal Urinal Urinal # Voids 1 2 # Bowel Movements 1 1 # Emeses 0 Results CBC & Chem 7: 03/06/19 10:40 03/06/19 10:40 Labs: Abnormal Lab Results - Last 24 Hours (Table) 03/06/19 03/06/19 03/06/19 Range/Units 10:40 10:40 11:50 WBC 10.8 H (3.8-10.6) k/uL Neutrophils # 8.1 H (1.3-7.7) k/uL Carbon Dioxide 20 L (22-30) mmol/L Glucose 109 H (74-99) mg/dL Urine Protein Trace H (Negative) Urine Ketones Trace H (Negative) Thrombosis Risk Factor Assmnt - Choose All That Apply Any of the Below Risk Factors Present?: Yes Each Factor Represents 1 point: Obesity (BMI >25) Other Risk Factors: Yes Each Risk Factor Represents 2 Points: Age 61-74 years Other congenital or acquired thrombophilia - If yes, enter type in comment: No Thrombosis Risk Factor Assessment Total Risk Factor Score: 3 Thrombosis Risk Factor Assessment Level: Moderate Risk
[2019-03-07 20:34] LABS: Glucose,Whole Blood 106 mg/dL (75-99)
[2019-03-07] MEDS: OLANZapine 2.5 MG TAB PO SCH (20:54)
[2019-03-08] MEDS: CYANOCOBALAMIN 500 MCG TAB PO SCH (07:24)
[2019-03-08] MEDS: metFORMIN 500 MG TAB PO SCH (07:24)
[2019-03-08] MEDS: levETIRAcetam 500 MG TAB PO SCH (07:24)
[2019-03-08 07:32] VITALS: RESP 15
[2019-03-08 12:38] VITALS: BP 122/77; PULSE 80; TEMP 98
[2019-03-08] MEDS ORDERED: SERTRALINE 50 MG TAB PO SCH (14:45)
--- NOTE | 2019-03-08 14:51 | P.CN ---
Psychiatric Consult - . Consult date: 03/08/19 Consult:: 03/08/19 14:37 IDENTIFYING DATA: This patient is a 68-year-old male who currently lives in a care home called [facility], has a guardian currently collects Social Security and has no kids is unmarried. HISTORY OF PRESENT ILLNESS: The patient presented the hospital after having a seizure on 03/06. As per ED note the seizure was witnessed and lasted approximately 3-4 minutes. Patient was brought in by EMS and after being evaluated was about to be discharged however had another seizure in the ER and was admitted for observation. Patient was noted to be on Zyprexa 7.5 mg at night along with Wellbutrin XL 150 mg daily for mood which was discontinued as it may have been a precipitant to the seizure. Patient was seen by psychiatry today in regards to stopping the Wellbutrin due to the seizure and needing a replacement for mood prior to discharge. Patient was agreeable to speak to verse writer today. Patient was calm directable and pleasant at the bedside however had a slowed speech and was slow to respond. Patient answered all questions appropriately however did not know much about his medications and was a poor historian. When asked about his Wellbutrin and what it helps him with patient did not know and claims that it was recently started however does not know when. When he was asked about his Zyprexa patient again did not know who has been prescribing it and what it helps him with. Patient admitted to mild depression however states that his mood has been improving since he is in the hospital. He denies any anxiety at this time. Patient was cheerful and future oriented and spoke about going to the different groups at "[employer]" during the day and enjoys spending time with other people at the care home. Patient claimed to have good sleep and denies any auditory or visual hallucinations. At this time patient denies any suicidal or homical ideations, intent or plan. Patient denies any paranoia or delusions. He did not endorse smoking cigarettes using alcohol or any other illicit drug use. PAST PSYCHIATRIC HISTORY: Patient denies ever being admitted to a psych hospital. He denies any previous suicide attempts. He admits to having a history of depression and anxiety. She states that he does not know who he follows up with for his psychiatric care. PAST MEDICAL HISTORY: Seizure disorder, diabetes mellitus, questionable CVA. ALLERGIES: as per EMR. CHEMICAL DEPENDENCY HISTORY: as per HPI. FAMILY PSYCHIATRIC/SUBSTANCE USE HISTORY: denies SOCIAL HISTORY: He states that he was born and raised near [facility]. 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 He states that now he lives at [facility] which is a care home. He claims that he does have a guardian. He states that he does not have any kids and collects Social Security.. MENTAL STATUS EXAM: General Appearance: Patient appears to be stated age is alert, pleasant, and directable. Patient has marginal hygiene and grooming. Patient has slowed thought process. Behavior: Patient is calmly lying in bed without any agitated behavior. Speech: Patient's speech is fluent and nonpressured. Mood/Affect: Patient reports their mood is "fine", affect is congruent Suicidality/Homicidality: Patient denies having any suicidal or homicidal ideation intent or plan. Perceptions: Patient denies any auditory or visual hallucinations. Though content/process: There is no evidence of any delusional thought content and thought process is linear and goal-directed. Slowed thought process. Memory and concentration: AOX3, grossly intact for the purposes of this session. Can spell "WORLD" backwards Judgment and insight: fair IMPRESSIONS: Depressive disorder unspecified rule out bipolar disorder PLAN: -At this time patient does NOT meet criteria for inpatient psychiatric admission. At this time patient is not an imminent risk for harm to self and/or others. -Would recommend the following medication changes/additions: Started sertraline 50 mg daily and replacement for Wellbutrin for mood. This dose can be titrated up as needed as an outpatient. Decreased Zyprexa to 5 mg nightly. Unsure as to the reason why patient is on Zyprexa, possibly for mood stabilization vs. sedation? This medication needs to be reevaluated as an outpatient. -Unsure of where patient follows up for his psychiatric care. Patient currently has a guardian and lives in a care home and can be discharged when medically cleared. -Psychiatry will sign off at this point 03/08/19 14:46
[2019-03-08] MEDS ORDERED: OLANZapine 5 MG TAB PO SCH (21:00)
--- NOTE | 2019-03-09 22:32 | P.DS ---
Providers Date of admission: 03/06/19 14:18 Expected date of discharge: 03/08/19 Attending physician: Fabio Sagastume Consults: 03/06/19 14:11 Consult Physician Stat Consulting Provider: Deirdre Cee Consult Reason/Comments: Seizure Do you want consulting provider notified?: Yes 03/07/19 13:20 Consult Physician Stat Consulting Provider: Jewel Kelly Consult Reason/Comments: stopping wellbutrin due to seizures, looking for replacement med. Do you want consulting provider notified?: Already Contacted Primary care physician: [facility] Course: Chief Complaint: Seizures History of presenting complaint: This is a 68-year-old patient who lives at the [facility] living. Does use a walker to baseline.. Chronic stable medical conditions include diabetes mellitus, depression and anxiety. Patient's medications are managed by the staff. Patient was here in December of this year. Had at least 2 seizures on that presentation.. Was put on Keppra. EEG done that time did not show any seizure activity. The did show mild diffuse cerebral dysfunction. Patient now presented to the ER. Patient had a witnessed seizure at the home. Lasted about 3-4 minutes. He was post ictal in the ER. Per information patient was being weaned off of his Keppra. Also patient has been on Wellbutrin. Seen by psychiatrist on the last visit. He was left on the same and the plan was for outpatient psychiatry to determine if he can continue the same or not. Patient was continued on Keppra. Seen by psychiatry. Psychiatry medications were adjusted. Wellbutrin was discontinued. Zoloft 50 mg a day was added. Zyprexa was changed to 5 mg daily at bedtime. Cleared by both the services to be discharge. Patient's stable doing well at the time of discharge. Consultation: Dr. Cee from neurology Dr. Kelly from psychiatry Physical examination: VITAL SIGNS: 98, 80, 15, 122/77, 98% room air GENERAL: Laying bed, comfortable EYES: Pupils equal. Conjunctiva normal. HEENT: External appearance of nose and ears normal, oral cavity grossly normal. NECK: JVD not raised; masses not palpable. HEART: First and second heart sounds are normal; no edema. LUNGS: Respiratory rate normal; clear to auscultation. ABDOMEN: Soft, nontender, liver spleen not palpable, no masses palpable. PSYCH: Able to answer questions. NEUROLOGICAL: Cranial nerves grossly intact; no facial asymmetry, moving all 4 limbs on instructions. INVESTIGATIONS, reviewed in the clinical context: White count 10.8 hemoglobin 14.7 potassium 4.7 creatinine 0.84 UA negative for infection -Keppra 13.7 Discharge diagnosis: -Recurrent tonic-clonic seizures and the patient was started on antiepileptic drugs in December of this year. EEG that time was negative for epilepsy. Apparently patient was being weaned off these drugs as an outpatient. Has now presented yet again with seizures. -Diabetes mellitus type 2 -Obesity BMI 32.5 -Anxiety depression otherwise specified Disposition: Home Patient Condition at Discharge: Stable Plan - Discharge Summary Discharge Rx Participant: No New Discharge Prescriptions: New Sertraline [Zoloft] 50 mg PO DAILY #30 tab OLANZapine [ZyPREXA] 5 mg PO HS #30 tab Continue metFORMIN HCL ER [Glucophage Xr] 1,000 mg PO QAM Sennosides [Senna] 17.2 mg PO HS PRN PRN Reason: Constipation Cyanocobalamin (Vitamin B-12) [Vitamin B-12] 1,000 mcg PO DAILY Polyethylene Glycol 3350 [Miralax] 17 gm PO DAILY PRN PRN Reason: Constipation levETIRAcetam [Keppra] 1,000 mg PO Q12HR #60 tab Discontinued OLANZapine 7.5 mg PO HS buPROPion XL [Wellbutrin XL] 150 mg PO DAILY Discharge Medication List Cyanocobalamin (Vitamin B-12) [Vitamin B-12] 1,000 mcg PO DAILY 07/27/18 [History] Polyethylene Glycol 3350 [Miralax] 17 gm PO DAILY PRN 07/27/18 [History] Sennosides [Senna] 17.2 mg PO HS PRN 07/27/18 [History] metFORMIN HCL ER [Glucophage Xr] 1,000 mg PO QAM 07/27/18 [History] levETIRAcetam [Keppra] 1,000 mg PO Q12HR #60 tab 12/27/18 [Rx] OLANZapine [ZyPREXA] 5 mg PO HS #30 tab 03/08/19 [Rx] Sertraline [Zoloft] 50 mg PO DAILY #30 tab 03/08/19 [Rx] Follow up Appointment(s)/Referral(s): Psychiatristdr [Other] - 2 Weeks Tommy Jones MD [Primary Care Provider] - 3 Days (Malcolm to arrange. ) Patient Instructions/Handouts: Recurrent Seizures in Adults (DC) Activity/Diet/Wound Care/Special Instructions: Contact Jarocho Mcintyre, Legal Guardian for mode of transportation back to [facility]. Diabetic diet. Activity as tolerated, fall precautions. Discharge Disposition: HOME SELF-CARE
== END 2019-03-08 15:09 | disposition home or self-care (01) | DRG 101 ==
LOC: EC 10:26 → 4MS4W 14:18
PROVIDERS: ADMIT Hospitalist; ATTEND Hospitalist
DX: G40.802 Other epilepsy, not intractable, without status epilepticus (principal); F41.8 Other specified anxiety disorders; E11.9 Type 2 diabetes mellitus without complications; E66.9 Obesity, unspecified; Z88.0 Allergy status to penicillin; Z68.32 Body mass index [BMI] 32.0-32.9, adult; Z79.84 Long term (current) use of oral hypoglycemic drugs; Z79.899 Other long term (current) drug therapy; Z90.49 Acquired absence of other specified parts of digestive tract; Z80.9 Family history of malignant neoplasm, unspecified
CPT/HCPCS: 36415; 70450; 80053; 80177; 81003; 85025; 93005; 94760; 96365; 96375; 99285

== ENCOUNTER 2022-01-14 15:02 | Emergency (ER) | payer MEDICARE, OTHER ==
[2022-01-14 15:18] VITALS: RESP 16; TEMP 98.6
[2022-01-14 15:44] LABS: Basophils # (A) 0.1 k/uL (0-0.2); Basophils % (A) 1 %; Eosinophils # (A) 0.3 k/uL (0-0.7); Eosinophils % (A) 4 %; HCT 43.7 % (39.0-53.0); Lymphocytes # (A) 2.2 k/uL (1.0-4.8); Lymphocytes % (A) 24 %; MCH 29.6 pg (25.0-35.0); MCV 92.4 fL (80.0-100.0); Mean Platelet Volume 7.2; Monocytes # (A) 0.6 k/uL (0-1.0); Monocytes % (A) 6 %; Neutrophils # (A) 5.9 k/uL (1.3-7.7); Neutrophils % (A) 64 %; Platelet Count 190 k/uL (150-450); RBC 4.73 m/uL (4.30-5.90); RDW 12.9 % (11.5-15.5); WBC 9.2 k/uL (3.8-10.6)
[2022-01-14 15:58] LABS: African American GFR (CKD) >90 (>60 ml/min/1.73 sqM); Anion Gap 11 mmol/L; Blood Urea Nitrogen 23 mg/dL (9-20); Calcium 8.7 mg/dL (8.4-10.2); Carbon Dioxide 21 mmol/L (22-30); Chloride 101 mmol/L (98-107); Glucose 145 mg/dL (74-99); Magnesium 1.8 mg/dL (1.6-2.3); Non-African American GFR(CKD) 79 (>60 ml/min/1.73 sqM); Sodium 133 mmol/L (137-145)
--- NOTE | 2022-01-14 16:27 | ED ---
General Adult HPI - General Chief complaint: Seizure Stated complaint: seizure Time Seen by Provider: 01/14/22 15:08 Source: patient Mode of arrival: EMS - History of Present Illness Initial comments: Dictation was produced using [employer] dictation software. please excuse any grammatical, word or spelling errors. Chief Complaint: 71-year-old male past medical history of seizure disorder presents to the ER after seizure History of Present Illness: Patient 71-year-old male is brought in by EMS. Patient was at the internal medicine clinic to get his toenails cut. Patient then had a witnessed seizure. He was seen to be postictal. Patient is a poor historian. It is unclear what patient's baseline mentation is. According to chart review patient is prescribed Keppra. He does have established diagnosis of seizure according to chart review. Patient denies any complaints at this time. The ROS documented in this emergency department record has been reviewed and confirmed by me. Those systems with pertinent positive or negative responses have been documented in the HPI. All other systems are other negative and/or noncontributory. PHYSICAL EXAM: General Impression: Alert and oriented x3, not in acute distress HEENT: Normocephalic atraumatic, extra-ocular movements intact, pupils equal and reactive to light bilaterally, mucous membranes moist. Cardiovascular: Heart regular rate and rhythm Chest: Able to complete full sentences, no retractions, no tachypnea Abdomen: abdomen soft, non-tender, non-distended, no organomegaly Musculoskeletal: Pulses present and equal in all extremities, no peripheral edema Motor: no focal deficits noted Neurological: CN II-XII grossly intact, no focal motor or sensory deficits noted Skin: Intact with no visualized rashes Psych: Normal affect and mood ED course: 71-year-old male presents emergency department for witnessed seizure. Patient has established diagnosis of seizure and chart review shows that patient is prescribed Keppra. Vital signs upon arrival are within acceptable limits. Laboratory evaluation obtained. CBC unremarkable. Potassium shows 6.0 with hemolysis. Patient likely has a normal potassium. Patient's EKG is unremarkable. Does not suggest hyperkalemia. Patient had a lactic acidosis of 6.2 which suggests that patient infected have a seizure. Case is discussed with patient's legal guardian, Jarocho Childers who confirms that patient has some mental delay and is not quite the best historian however there is no concerns that patient is noncompliant with his medications. Nonetheless patient was observed in the emergency department for approximately 2 hours. Revive bedside at 5:00 PM found to be in stable medical condition. She'll be discharge. Jarocho Betancourt patient's legal guardian was told that patient is to follow-up with his primary care doctor or neurologist. EKG interpretation: Ventricular rate 99, sinus rhythm,. Interval 95, QTc 2, QTC 395. No WA prolongation, no QTC prolongation, no ST or T-wave changes noted. Overall, this EKG is unremarkable - Related Data Home Medications Medication Instructions Recorded Confirmed Cyanocobalamin (Vitamin B-12) 1,000 mcg PO DAILY 07/27/18 03/06/19 [Vitamin B-12] Sennosides [Senna] 17.2 mg PO HS PRN 07/27/18 03/06/19 metFORMIN HCL ER [Glucophage XR] 1,000 mg PO QAM 07/27/18 03/06/19 polyethylene glycoL 3350 [Miralax] 17 gm PO DAILY PRN 07/27/18 03/06/19 Previous Rx's Medication Instructions Recorded levETIRAcetam [Keppra] 1,000 mg PO Q12HR #60 tab 12/27/18 OLANZapine [ZyPREXA] 5 mg PO HS #30 tab 03/08/19 Sertraline [Zoloft] 50 mg PO DAILY #30 tab 03/08/19 Allergies Allergy/AdvReac Type Severity Reaction Status Date / Time Penicillins Allergy Unknown Verified 03/06/19 10:58 Review of Systems ROS Statement: Those systems with pertinent positive or pertinent negative responses have been documented in the HPI. ROS Other: All systems not noted in ROS Statement are negative. Past Medical History Past Medical History: Diabetes Mellitus, Seizure Disorder Additional Past Medical History / Comment(s): NIDDM type II, constipation History of Any Multi-Drug Resistant Organisms: Unobtainable Past Surgical History: Tonsillectomy Past Anesthesia/Blood Transfusion Reactions: No Reported Reaction Past Psychological History: Anxiety, Depression Past Alcohol Use History: None Reported Past Drug Use History: None Reported - Past Family History Father Family Medical History: No Reported History Additional Family Medical History / Comment(s): Pt states his father was healthy Mother Family Medical History: Cancer Additional Family Medical History / Comment(s): Pt states his mother had some form of cancer. Course Vital Signs 01/14/22 01/14/22 15:11 16:45 Temperature 98.6 F Pulse Rate 98 63 Respiratory 16 16 Rate Blood Pressure 115/84 136/60 O2 Sat by Pulse 92 L 98 Oximetry Medical Decision Making - Lab Data Result diagrams: 01/14/22 15:38 01/14/22 15:38 Lab Results 01/14/22 01/14/22 01/14/22 Range/Units 15:38 15:38 15:38 WBC 9.2 (3.8-10.6) k/uL RBC 4.73 (4.30-5.90) m/uL Hgb 14.0 (13.0-17.5) gm/dL Hct 43.7 (39.0-53.0) % MCV 92.4 (80.0-100.0) fL MCH 29.6 (25.0-35.0) pg MCHC 32.0 (31.0-37.0) g/dL RDW 12.9 (11.5-15.5) % Plt Count 190 (150-450) k/uL MPV 7.2 Neutrophils % 64 % Lymphocytes % 24 % Monocytes % 6 % Eosinophils % 4 % Basophils % 1 % Neutrophils # 5.9 (1.3-7.7) k/uL Lymphocytes # 2.2 (1.0-4.8) k/uL Monocytes # 0.6 (0-1.0) k/uL Eosinophils # 0.3 (0-0.7) k/uL Basophils # 0.1 (0-0.2) k/uL Sodium 133 L (137-145) mmol/L Potassium 6.0 H (3.5-5.1) mmol/L Chloride 101 (98-107) mmol/L Carbon Dioxide 21 L (22-30) mmol/L Anion Gap 11 mmol/L BUN 23 H (9-20) mg/dL Creatinine 0.97 (0.66-1.25) mg/dL Est GFR (CKD-EPI)AfAm >90 (>60 ml/min/1.73 sqM) Est GFR (CKD-EPI)NonAf 79 (>60 ml/min/1.73 sqM) Glucose 145 H (74-99) mg/dL Plasma Lactic Acid Brennen 6.2 H* (0.7-2.0) mmol/L Calcium 8.7 (8.4-10.2) mg/dL Magnesium 1.8 (1.6-2.3) mg/dL Disposition Clinical Impression: Recurrent seizures Disposition: HOME SELF-CARE Condition: Fair Instructions (If sedation given, give patient instructions): Recurrent Seizures in Adults (ED) Additional Instructions: Follow-up with primary care doctor and neurologist. Is patient prescribed a controlled substance at d/c from ED?: No Referrals: Nonstaff,Physician [Primary Care Provider] - 1-2 days Time of Disposition: 17:06
[2022-01-14 17:43] VITALS: BP 140/68; PULSE 78
== END 2022-01-14 17:43 | disposition home or self-care (01) ==
LOC: EC 15:02
DX: G40.909 Epilepsy, unspecified, not intractable, without status epilepticus (principal); E11.9 Type 2 diabetes mellitus without complications; F41.9 Anxiety disorder, unspecified; F32.A Depression, unspecified; Z88.0 Allergy status to penicillin; Z79.899 Other long term (current) drug therapy
CPT/HCPCS: 36415; 80048; 83605; 83735; 85025; 93005; 99284

== ENCOUNTER 2022-02-14 21:44 | Inpatient (IN) | payer MEDICARE, OTHER ==
[2022-02-14] MEDS ORDERED: LORazepam 2 MG/ML INJ IV STA ×2 (21:49→23:09)
[2022-02-14] MEDS ORDERED: SODIUM CHLORIDE 0.9% 1,000 ML IV STA (21:49)
[2022-02-14] MEDS ORDERED: ONDANSETRON 4 MG/2 ML VIAL IVP STA (21:50)
--- NOTE | 2022-02-14 21:52 | ED ---
Seizure HPI - General Stated Complaint: Seizure Time Seen by Provider: 02/14/22 21:47 Source: RN notes reviewed, old records reviewed, Caregiver Mode of arrival: EMS Limitations: no limitations, altered mental status - History of Present Illness Initial Comments: This is a 71-year-old male who presents history of today for evaluation of a seizure this is a patient does struggle with seizures and has had been the emergency room multiple times for seizure disorder. Patient significant change in medications as prescribed. He is actively vomiting currently which she sometimes does radiate associated with seizure. Patient is otherwise no significant postictal state no noted change in medications. MD Complaint: seizure, possible seizure -: hour(s) Description of Episode: loss of consciousness, tonic-clonic movement, bladder incontinence, post-event confusion -: second(s) Trauma: Yes Seizure History: known seizure disorder, compliant with medication Place: home Possible Precipitating Event: none Associated Symptoms: denies other symptoms Treatments Prior to Arrival: none - Related Data Home Medications Medication Instructions Recorded Confirmed Cyanocobalamin (Vitamin B-12) 1,000 mcg PO DAILY 07/27/18 03/06/19 [Vitamin B-12] Sennosides [Senna] 17.2 mg PO HS PRN 07/27/18 03/06/19 metFORMIN HCL ER [Glucophage XR] 1,000 mg PO QAM 07/27/18 03/06/19 polyethylene glycoL 3350 [Miralax] 17 gm PO DAILY PRN 07/27/18 03/06/19 Previous Rx's Medication Instructions Recorded levETIRAcetam [Keppra] 1,000 mg PO Q12HR #60 tab 12/27/18 OLANZapine [ZyPREXA] 5 mg PO HS #30 tab 03/08/19 Sertraline [Zoloft] 50 mg PO DAILY #30 tab 03/08/19 Allergies Allergy/AdvReac Type Severity Reaction Status Date / Time Penicillins Allergy Unknown Verified 03/06/19 10:58 Review of Systems ROS Statement: Those systems with pertinent positive or pertinent negative responses have been documented in the HPI. ROS Other: All systems not noted in ROS Statement are negative. Past Medical History Past Medical History: Diabetes Mellitus, Seizure Disorder Additional Past Medical History / Comment(s): NIDDM type II, constipation History of Any Multi-Drug Resistant Organisms: Unobtainable Past Surgical History: Tonsillectomy Past Anesthesia/Blood Transfusion Reactions: No Reported Reaction Past Psychological History: Anxiety, Depression Past Alcohol Use History: None Reported Past Drug Use History: None Reported - Past Family History Father Family Medical History: No Reported History Additional Family Medical History / Comment(s): Pt states his father was healthy Mother Family Medical History: Cancer Additional Family Medical History / Comment(s): Pt states his mother had some form of cancer. General Exam General appearance: alert, in no apparent distress, anxious Head exam: Present: atraumatic, normocephalic, normal inspection Eye exam: Present: normal appearance, PERRL, EOMI. Absent: scleral icterus, conjunctival injection, periorbital swelling ENT exam: Present: normal exam, mucous membranes moist Neck exam: Present: normal inspection. Absent: tenderness, meningismus, lymphadenopathy Respiratory exam: Present: normal lung sounds bilaterally. Absent: respiratory distress, wheezes, rales, rhonchi, stridor Cardiovascular Exam: Present: regular rate, normal rhythm, normal heart sounds. Absent: systolic murmur, diastolic murmur, rubs, gallop, clicks GI/Abdominal exam: Present: soft, normal bowel sounds. Absent: distended, tenderness, guarding, rebound, rigid Extremities exam: Present: normal inspection, full ROM, normal capillary refill. Absent: tenderness, pedal edema, joint swelling, calf tenderness Back exam: Present: normal inspection Neurological exam: Present: alert, oriented X3, CN II-XII intact Psychiatric exam: Present: normal affect, normal mood Skin exam: Present: warm, dry, intact, normal color. Absent: rash Course - Reevaluation(s) Reevaluation #1: 02/14/22 21:52 Medical records reviewed Reevaluation #2: 02/14/22 21:52 Patient is actively vomiting here in the ER Reevaluation #3: 02/14/22 22:38 Patient was actively vomiting while at a stop currently Medical Decision Making - Medical Decision Making 71 male to the emergency department for evaluation. Patient presents today for evaluation of recurrent seizure activity. Patient has multiple visits this with no acute cause found. Patient seizures.. She was vomiting that. He is taking medication at home and has been compliant. No traumas noted. Patient will be discharged home - Lab Data Result diagrams: 02/14/22 21:53 02/14/22 21:53 Lab Results 02/14/22 02/14/22 02/14/22 Range/Units 21:53 21:53 22:03 WBC 14.2 H (3.8-10.6) k/uL RBC 4.64 (4.30-5.90) m/uL Hgb 14.1 (13.0-17.5) gm/dL Hct 42.2 (39.0-53.0) % MCV 91.0 (80.0-100.0) fL MCH 30.3 (25.0-35.0) pg MCHC 33.4 (31.0-37.0) g/dL RDW 13.0 (11.5-15.5) % Plt Count 213 (150-450) k/uL MPV 7.1 Neutrophils % 72 % Lymphocytes % 19 % Monocytes % 6 % Eosinophils % 1 % Basophils % 0 % Neutrophils # 10.2 H (1.3-7.7) k/uL Lymphocytes # 2.6 (1.0-4.8) k/uL Monocytes # 0.8 (0-1.0) k/uL Eosinophils # 0.2 (0-0.7) k/uL Basophils # 0.1 (0-0.2) k/uL Sodium 139 (137-145) mmol/L Potassium 4.4 (3.5-5.1) mmol/L Chloride 102 (98-107) mmol/L Carbon Dioxide 19 L (22-30) mmol/L Anion Gap 18 mmol/L BUN 19 (9-20) mg/dL Creatinine 0.96 (0.66-1.25) mg/dL Est GFR (CKD-EPI)AfAm >90 (>60 ml/min/1.73 sqM) Est GFR (CKD-EPI)NonAf 80 (>60 ml/min/1.73 sqM) Glucose 119 H (74-99) mg/dL POC Glucose (mg/dL) 113 H (70-110) mg/dL POC Glu Fence Repairman ID Sofiya Islas Calcium 9.2 (8.4-10.2) mg/dL Magnesium 1.8 (1.6-2.3) mg/dL Total Bilirubin 0.5 (0.2-1.3) mg/dL AST 44 (17-59) U/L ALT 35 (4-49) U/L Alkaline Phosphatase 67 (38-126) U/L Total Protein 7.2 (6.3-8.2) g/dL Albumin 4.1 (3.5-5.0) g/dL Salicylates <1.0 mg/dL Acetaminophen <10.0 ug/mL Disposition Clinical Impression: Generalized seizure Disposition: HOME SELF-CARE Condition: Fair Instructions (If sedation given, give patient instructions): Seizure/Epilepsy Discharge Instructions & Follow-Up Is patient prescribed a controlled substance at d/c from ED?: No Referrals: None,Stated [Primary Care Provider] - 1-2 days Time of Disposition: 22:40
[2022-02-14 22:05] LABS: Glucose,Whole Blood 113 mg/dL (70-110)
[2022-02-14 22:10] LABS: Basophils # (A) 0.1 k/uL (0-0.2); Basophils % (A) 0 %; Eosinophils # (A) 0.2 k/uL (0-0.7); Eosinophils % (A) 1 %; HCT 42.2 % (39.0-53.0); HGB 14.1 gm/dL (13.0-17.5); Lymphocytes # (A) 2.6 k/uL (1.0-4.8); Lymphocytes % (A) 19 %; MCH 30.3 pg (25.0-35.0); MCHC 33.4 g/dL (31.0-37.0); Mean Platelet Volume 7.1; Monocytes # (A) 0.8 k/uL (0-1.0); Monocytes % (A) 6 %; Neutrophils # (A) 10.2 k/uL (1.3-7.7); Neutrophils % (A) 72 %; Platelet Count 213 k/uL (150-450); RBC 4.64 m/uL (4.30-5.90); WBC 14.2 k/uL (3.8-10.6)
[2022-02-14 22:16] LABS: Sodium 139 mmol/L (137-145)
[2022-02-14 22:19] LABS: ALT 35 U/L (4-49); AST 44 U/L (17-59); Acetaminophen <10.0 ug/mL; African American GFR (CKD) >90 (>60 ml/min/1.73 sqM); Albumin 4.1 g/dL (3.5-5.0); Alkaline Phosphatase 67 U/L (38-126); Anion Gap 18 mmol/L; Blood Urea Nitrogen 19 mg/dL (9-20); Calcium 9.2 mg/dL (8.4-10.2); Carbon Dioxide 19 mmol/L (22-30); Chloride 102 mmol/L (98-107); Glucose 119 mg/dL (74-99); Magnesium 1.8 mg/dL (1.6-2.3); Non-African American GFR(CKD) 80 (>60 ml/min/1.73 sqM); Salicylate <1.0 mg/dL; Total Bilirubin 0.5 mg/dL (0.2-1.3); Total Protein 7.2 g/dL (6.3-8.2)
[2022-02-14 22:29] LABS: Potassium 4.4 mmol/L (3.5-5.1)
[2022-02-14] MEDS ORDERED: levETIRAcetam IV 1,500 MG in SALINE 1 100ML.BAG IVPB STA (23:01)
--- NOTE | 2022-02-14 23:05 | XR ---
EXAMINATION TYPE: XR chest 1V DATE OF EXAM: 02/14/2022 COMPARISON: NONE HISTORY: Fall. Seizure. TECHNIQUE: FINDINGS: There is no heart failure nor confluent pneumonic infiltrate. Costophrenic angles are clear . Bony thorax is intact. IMPRESSION: No active cardiopulmonary disease. Normal heart
--- NOTE | 2022-02-14 23:06 | XR ---
EXAMINATION TYPE: XR pelvis AP view DATE OF EXAM: 02/14/2022 COMPARISON: NONE HISTORY: Fall. Pain TECHNIQUE: Single view FINDINGS: Pelvic ring is intact. Proximal femurs and hip joints are intact. Sacroiliac joints are int act. No fracture seen. IMPRESSION: Negative pelvis xray exam
--- NOTE | 2022-02-14 23:11 | CT ---
EXAMINATION TYPE: CT brain cspine wo con DATE OF EXAM: 02/14/2022 COMPARISON: CT brain 03/06/2019 HISTORY: fall/ seizure. prior on PACS CT DLP: 1672.3 mGycm Automated exposure control for dose reduction was used. There is cerebral cortical atrophy. There is no mass effect or midline shift. No sign of intracranial hemorrhage. Calvarium is intact. Skull base is intact. There is normal aeration of the mastoid sinus es The cervical vertebra show normal alignment. Disc spaces are fairly normal. No compression fracture. There is minor hypertrophic spurring in the facet joints. Prevertebral soft tissues are intact skull base is intact. IMPRESSION: Cerebral atrophy. No acute intracranial abnormality. Negative CT scan of the cervical spine. Brain not changed compared to the old exam.
--- NOTE | 2022-02-14 23:19 | ED ---
Medical Decision Making - Medical Decision Making 71 male to the emergency department for evaluation. Patient is having recurrent seizures here in the emergency department not return to complete baseline and dropping his oxygen levels. Patient will be admitted for oxygen support as well as neurology to evaluate treat. Patient has recurrent seizure here in the ER, brought significant return to Baseline, dropping oxygen levels. Patient be admitted for further male management by neurology as well as medications for seizure - Lab Data Result diagrams: 02/14/22 21:53 02/14/22 21:53 Lab Results 02/14/22 02/14/22 02/14/22 Range/Units 21:53 21:53 22:03 WBC 14.2 H (3.8-10.6) k/uL RBC 4.64 (4.30-5.90) m/uL Hgb 14.1 (13.0-17.5) gm/dL Hct 42.2 (39.0-53.0) % MCV 91.0 (80.0-100.0) fL MCH 30.3 (25.0-35.0) pg MCHC 33.4 (31.0-37.0) g/dL RDW 13.0 (11.5-15.5) % Plt Count 213 (150-450) k/uL MPV 7.1 Neutrophils % 72 % Lymphocytes % 19 % Monocytes % 6 % Eosinophils % 1 % Basophils % 0 % Neutrophils # 10.2 H (1.3-7.7) k/uL Lymphocytes # 2.6 (1.0-4.8) k/uL Monocytes # 0.8 (0-1.0) k/uL Eosinophils # 0.2 (0-0.7) k/uL Basophils # 0.1 (0-0.2) k/uL Sodium 139 (137-145) mmol/L Potassium 4.4 (3.5-5.1) mmol/L Chloride 102 (98-107) mmol/L Carbon Dioxide 19 L (22-30) mmol/L Anion Gap 18 mmol/L BUN 19 (9-20) mg/dL Creatinine 0.96 (0.66-1.25) mg/dL Est GFR (CKD-EPI)AfAm >90 (>60 ml/min/1.73 sqM) Est GFR (CKD-EPI)NonAf 80 (>60 ml/min/1.73 sqM) Glucose 119 H (74-99) mg/dL POC Glucose (mg/dL) 113 H (70-110) mg/dL POC Glu [employer] ID Sofiya Islas Calcium 9.2 (8.4-10.2) mg/dL Magnesium 1.8 (1.6-2.3) mg/dL Total Bilirubin 0.5 (0.2-1.3) mg/dL AST 44 (17-59) U/L ALT 35 (4-49) U/L Alkaline Phosphatase 67 (38-126) U/L Total Protein 7.2 (6.3-8.2) g/dL Albumin 4.1 (3.5-5.0) g/dL Salicylates <1.0 mg/dL Acetaminophen <10.0 ug/mL - Radiology Data Radiology results: report reviewed (CT brain Cspine,CXR XR Pelvis negative for acute disease), image reviewed Critical Care Time Critical Care Time: Yes Total Critical Care Time: 31 Disposition Clinical Impression: Status epilepticus, Epileptic seizure, generalized, Generalized seizure Disposition: ADMITTED IP TO THIS [facility] Condition: Fair Instructions (If sedation given, give patient instructions): Seizure/Epilepsy Discharge Instructions & Follow-Up Is patient prescribed a controlled substance at d/c from ED?: No Referrals: None,Stated [Primary Care Provider] - 1-2 days Time of Disposition: 23:00
[2022-02-15] MEDS ORDERED: NALOXONE 0.4 MG/ML 1 ML VIAL IV PRN (00:29)
[2022-02-15] MEDS ORDERED: ONDANSETRON 4 MG/2 ML VIAL IVP PRN (00:29)
[2022-02-15] MEDS ORDERED: MORPHINE SULFATE 4 MG/ML SYRINGE IV PRN (00:29)
[2022-02-15] MEDS: SODIUM CHLORIDE 0.9% 1,000 ML IV SCH ×3 (01:30→22:01)
[2022-02-15] MEDS ORDERED: ACETAMINOPHEN IV (For NPO) 1,000 MG in EMPTY BAG 1 BAG IVPB ONE (04:22)
[2022-02-15 04:27] LABS: Amphetamine Screen,Urine Not Detected (NotDetected); Barbiturate Screen,Urine Not Detected (NotDetected); Benzodiazepines Screen,Urine Detected (NotDetected); Cocaine Screen,Urine Not Detected (NotDetected); Methadone Screen, Urine Not Detected (NotDetected); Opiate Screen,Urine Not Detected (NotDetected); Oxycodone Screen, Urine Not Detected (NotDetected); Phencyclidine Screen,Urine Not Detected (NotDetected); Tricyclic Antidepressant,Urine Not Detected (NotDetected); Urn Cannabinoid Scrn Not Detected (NotDetected)
--- NOTE | 2022-02-15 05:07 | P.HPIM ---
History of Present Illness H&P Date: 02/15/22 Chief Complaint: status epilepticus 71 year old male with seizure disorder, developmental delays patient is a resident of assisted living facility patient was sent in here for seizure episode, he had similar presentation about a month ago. at that time his legal guardian confirmed patient compliant with his meds. patient is poor historian , unable to provide any meaningful history initial plan inthe ED was to discharge the patient home, however, he then went into more seizure attacks without returning to his baseline consciousness, he was in status epilepticus and admitted for further workup . no other history available at this time, multiple attempts to contact the guradian were not successful workup in the ED< CT brain no acute pathology CXR no acute pathology blood work showed elevated WBC Review of Systems ROS unobtainable: due to mental status Past Medical History Past Medical History: Diabetes Mellitus, Seizure Disorder Additional Past Medical History / Comment(s): NIDDM type II, constipation History of Any Multi-Drug Resistant Organisms: Unobtainable Past Surgical History: Tonsillectomy Past Anesthesia/Blood Transfusion Reactions: No Reported Reaction Past Psychological History: Anxiety, Depression Past Alcohol Use History: None Reported Past Drug Use History: None Reported - Past Family History Father Family Medical History: No Reported History Additional Family Medical History / Comment(s): Pt states his father was healthy Mother Family Medical History: Cancer Additional Family Medical History / Comment(s): Pt states his mother had some form of cancer. Medications and Allergies Home Medications Medication Instructions Recorded Confirmed Type Cyanocobalamin (Vitamin B-12) 1,000 mcg PO DAILY 07/27/18 03/06/19 History [Vitamin B-12] Sennosides [Senna] 17.2 mg PO HS PRN 07/27/18 03/06/19 History metFORMIN HCL ER [Glucophage XR] 1,000 mg PO QAM 07/27/18 03/06/19 History polyethylene glycoL 3350 [Miralax] 17 gm PO DAILY PRN 07/27/18 03/06/19 History levETIRAcetam [Keppra] 1,000 mg PO Q12HR #60 tab 12/27/18 03/06/19 Rx OLANZapine [ZyPREXA] 5 mg PO HS #30 tab 03/08/19 Rx Sertraline [Zoloft] 50 mg PO DAILY #30 tab 03/08/19 Rx Allergies Allergy/AdvReac Type Severity Reaction Status Date / Time Penicillins Allergy Unknown Verified 03/06/19 10:58 Physical Exam Vitals: Vital Signs Temp Pulse Pulse Resp BP BP Pulse Ox 02/15/22 04:00 101.2 F H 93 14 125/76 92 L 02/15/22 00:02 93 25 H 123/79 94 L 02/14/22 23:53 98.9 F 100 25 H 128/81 94 L 02/14/22 21:45 110/82 Intake and Output 02/14/22 02/14/22 02/15/22 14:59 22:59 06:59 Other: Voiding Method External Catheter Weight 77.111 kg Constitutional: arousable confused Eyes: Anicteric sclerae, moist conjunctiva, Pupils equal round reactive to light ENMT: NC multiple brusing on the face over the chin and forehead. Oropharynx clear, no erythema, or exudates Neck: Supple, no masses, or JVD No carotid bruits No thyromegaly Lungs: Clear to auscultation Clear to percussion Normal respiratory effort, no accessory muscle use Cardiovascular: Heart regular in rate and rhythm, No murmurs, gallops, or rubs No peripheral edema Abdominal: Soft Nontender, no guarding, rebound or rigidity Abdomen moving with respiration Normoactive bowel sounds No hepatomegaly, No splenomegaly No palpable mass No abdominal wall hernia noted Skin: Normal temperature, tone, texture, turgor No induration No subcutaneous nodules No rash, lesions No ulcers Extremities: No digital cyanosis No clubbing Pedal pulses intact and symmetrical Radial pulses intact and symmetrical No calf tenderness Psychiatric: sleepy arousable , oriented to self and place. very slow to answer questions and at times gives no answers Neuro Muscles Strength 4/5 in all 4 extremities Sensation to light touch grossly present throughout Cranial nerves II-XII grossly intact Lymphatics: no palpable cervical or supraclavicular , or inguinal lymph nodes Results CBC & Chem 7: 02/14/22 21:53 02/14/22 21:53 Labs: Abnormal Lab Results - Last 24 Hours (Table) 02/14/22 02/14/22 02/14/22 Range/Units 21:53 21:53 22:03 WBC 14.2 H (3.8-10.6) k/uL Neutrophils # 10.2 H (1.3-7.7) k/uL Carbon Dioxide 19 L (22-30) mmol/L Glucose 119 H (74-99) mg/dL POC Glucose (mg/dL) 113 H (70-110) mg/dL U Benzodiazepines Scrn (NotDetected) 02/15/22 Range/Units 03:40 WBC (3.8-10.6) k/uL Neutrophils # (1.3-7.7) k/uL Carbon Dioxide (22-30) mmol/L Glucose (74-99) mg/dL POC Glucose (mg/dL) (70-110) mg/dL U Benzodiazepines Scrn Detected H (NotDetected) Assessment and Plan Assessment: status epilepticus seizure disorder loaded with keppra resume kechrisra neuro consult seizure and fall precautions electrolytes unremarkable monitor vital signs neuro checks IVF hydration with normal saline supplemental oxygen as needed leukocytosis , most likely reactive , rule out infectious process CT brain negative CXR negative check UA chronic conditions DM insulin sliding scale developmental delay DVT PPX hepairn sc ti d full code
[2022-02-15 07:30] LABS: Glucose,Whole Blood 152 mg/dL (70-110)
[2022-02-15] MEDS: INSULIN ASPART (NovoLOG) 100 UNIT/ML VIAL SQ SCH ×4 (10:03→22:22)
[2022-02-15] MEDS: SERTRALINE 50 MG TAB PO SCH (10:44)
[2022-02-15] MEDS: levETIRAcetam IV 1,000 MG in SALINE 1 100ML.BAG IVPB SCH ×2 (10:58→22:50)
[2022-02-15] MEDS: HEPARIN SODIUM,PORCINE/PF 5,000 UNIT/0.5 ML SYRINGE SQ SCH ×2 (10:59→22:02)
[2022-02-15 11:21] LABS: Amorphous Sediment,Urine Rare /hpf; Appearance,Urine Clear (Clear); Bacteria,Urine Rare /hpf; Bilirubin,Urine Negative (Negative); Blood,Urine Negative (Negative); Color,Urine Yellow; Glucose,Urine (UA) Negative (Negative); Hyaline Casts,Urine 1 /lpf (0-2); Ketones,Urine 2+ (Negative); Leukocyte Esterase,Urine Trace (Negative); Mucus,Urine Few /hpf; Nitrite,Urine Negative (Negative); PH, Urine 5.5 (5.0-8.0); Protein,Urine Trace (Negative); RBC,Urine 1 /hpf (0-5); Specific Gravity,Urine 1.024 (1.001-1.035); Urobilinogen,Urine <2.0 mg/dL (<2.0); WBC,Urine 7 /hpf (0-5)
--- NOTE | 2022-02-15 12:16 | P.CNNES ---
History of Present Illness Consult date: 02/15/22 Requesting physician: Fadi Hutton Reason for Consult: Seizures History of Present Illness: Patient is a 71-year-old male came to the hospital by ambulance yesterday at 9:44 PM. As per EMS flow sheet, when there are patient was alert oriented 1-2 which is normal. Patient's pupils were equal round and reacting and lungs were clear. According to the caregiver, patient had 3 seizure, and the last seizure lasted about 1 minute and 10 seconds. Patient was in a standing position when the seizures started and he fell on the ground. Patient has an abrasion all over his face from seizing on the carpet. Patient bit his tongue but the bleeding is controlled. Patient has an extensive history of seizures. His last seizure was a month ago. No recent changes in his seizure medications. EKG shows normal sinus rhythm. Patient's vitals at the scene blood pressure 112/74, pulse rate 88, respiration 18 saturation 94% and blood sugar 138. Patient's blood test shows WBC 14.2 hemoglobin is normal platelets normal. Electrolytes, renal function, hepatic panel are normal. Urine drug screen positive for benzodiazepine. Patient has been given a loading dose of Keppra 1.5 g in the ER. CT head revealed cerebral atrophy, with no acute abnormality. I personally review CT head, agree with the findings. There is frontal lobe atrophy. No significant change from CT head from 2019. CT of the cervical spin e was reported as negative. Patient in the ER was considered stable to be discharged home, but then he started having recurrent seizures in the ER. He was noted to be desaturating with his seizures. Oxygen has been started. It was at 4 L now decreased to 2 L/m. Patient not able to tell how often he gets seizures. However the ER report, it is mentioned that he has frequent seizures. Patient admitted for further management of his seizures. Patient offers no complaints. He is slightly postictal not able to provide detailed history. Patient's home medications include metformin, Keppra 1000 mg every 12 hours, BuSpar 10 mg 3 times a day, Crestor 10 mg, lisinopril 2.5 mg daily, Wellbutrin 150 mg daily and Zyprexa 7.5 mg at bedtime. On reviewing records, it appears patient had a new onset seizure on 12/25/2018. Patient was seen by Dr. Sampson, started on Keppra 1 g every 12 hours. Wellbutrin was recommended to be discontinued. CT head and EEG were unrevealing. EEG had revealed diffuse polymorphic theta slowing. Patient was discharged to follow up with outpatient neurology. Patient then was readmitted on 03/06/[address] was [address] by Dr[address] Cee. He was in the process of being tapered off of his AED. He was on Keppra [address] day[address] Cee has recommended for patient to be completely discontinued on Wellbutrin. He placed him back on Keppra 1 g twice a day. Review of Systems Constitutional: Denies chills, Denies fever Eyes: denies blurred vision, denies pain Ears, nose, mouth and throat: Denies headache, Denies sore throat Cardiovascular: Denies chest pain, Denies shortness of breath Respiratory: Denies cough Gastrointestinal: Denies abdominal pain, Denies diarrhea, Denies nausea, Denies vomiting Musculoskeletal: Denies myalgias Integumentary: Denies pruritus, Denies rash Neurological: Reports as per HPI Psychiatric: Reports anxiety, Reports depression Endocrine: Denies fatigue, Denies weight change Past Medical History Past Medical History: Diabetes Mellitus, Seizure Disorder Additional Past Medical History / Comment(s): NIDDM type II, constipation History of Any Multi-Drug Resistant Organisms: Unobtainable Past Surgical History: Tonsillectomy Past Anesthesia/Blood Transfusion Reactions: No Reported Reaction Past Psychological History: Anxiety, Depression Past Alcohol Use History: None Reported Past Drug Use History: None Reported - Past Family History Father Family Medical History: No Reported History Additional Family Medical History / Comment(s): Pt states his father was healthy Mother Family Medical History: Cancer Additional Family Medical History / Comment(s): Pt states his mother had some form of cancer. Medications and Allergies Home Medications Medication Instructions Recorded Confirmed Type Sennosides [Senna] 17.2 mg PO HS PRN 07/27/18 02/15/22 History metFORMIN HCL ER [Glucophage XR] 500 mg PO BID 07/27/18 02/15/22 History levETIRAcetam [Keppra] 1,000 mg PO Q12HR #60 tab 12/27/18 02/15/22 Rx OLANZapine [ZyPREXA] 7.5 mg PO HS 02/15/22 02/15/22 History Rosuvastatin [Crestor] 10 mg PO HS 02/15/22 02/15/22 History buPROPion HCL [buPROPion HCL Xl] 150 mg PO DAILY 02/15/22 02/15/22 History busPIRone HCl [Buspar] 10 mg PO TID 02/15/22 02/15/22 History lisinopriL 2.5 mg PO DAILY 02/15/22 02/15/22 History Allergies Allergy/AdvReac Type Severity Reaction Status Date / Time Penicillins Allergy Unknown Verified 02/15/22 08:24 Physical Examination - Vital Signs Vital Signs: Vital Signs Temp Pulse Pulse Resp BP BP Pulse Ox 02/15/22 10:00 98.1 F 71 16 110/79 98 02/15/22 07:32 97.6 F 78 16 110/76 97 02/15/22 05:49 95 110/82 02/15/22 04:00 101.2 F H 93 14 125/76 92 L 02/15/22 00:02 93 25 H 123/79 94 L 02/14/22 23:53 98.9 F 100 25 H 128/81 94 L 02/14/22 21:45 93 18 120/85 95 Intake and Output 02/14/22 02/15/22 02/15/22 22:59 06:59 14:59 Intake Total 880 Output Total 350 Balance 530 Intake: IV 880 ACETAMINOPHEN IV (For NPO 100 ) 1,000 mg In Empty Bag 1 bag @ 400 mls/hr IVPB ONCE ONE Rx#:[id number] Sodium Chloride 0.9% 1, 780 000 ml @ 130 mls/hr IV . Q7H42M [facility] Rx#:[id number] Output: Urine 350 Other: Voiding Method External Catheter Weight 77.111 kg Patient is an elderly male, in no acute distress. Patient is alert awake oriented, slightly slow mentation. Patient states it's February and the year is 1901. Patient states it is the state [facility], could not tell the city or the name of the building he is in at this time. He knows name of the current president. Speech and language functions are normal. Patient can name and repeat very well. No aphasia or dysarthria. Attention, concentration and fund of knowledge is limited. On cranial nerve examination, pupils are equal, round and reacting to light, visual santos are full on confrontation, with no neglect on double simultaneous stimulation. Extraocular muscles are intact with no nystagmus. Face is symmetric, tongue protrudes to the midline. Patient has dried up blood noted on the lips bilaterally. Palatal elevation and sensation normal, hearing and shoulder shrug normal, facial sensation normal. No obvious evidence of tongue bite escobedo seen. On muscle strength testing, there is no pronator drift and the strength is normal in arms and legs distally and proximally, except hip flexion which is 4 on the right, normal on the left. Ankle dorsiflexion are normal bilaterally. Strength is normal in the upper limbs. Deep tendon reflexes are absent and plantars downgoing bilaterally. Sensory to touch is equal with no neglect on double simultaneous stimulation. Cerebellar function showed no ataxia for [id number] testing, although he was performing it slowly. Tone and bulk of muscles normal. Gait deferred.. On general examination, there is no carotid bruit or murmur, S1-S2 audible. Makeda st is clear on consultation. Abdomen is soft nontender. No organomegaly, bowel sounds present. Peripheral pulses are present. No edema. Patient has right big toe partial amputation. Results - Laboratory Findings CBC and BMP: 02/16/22 07:27 02/16/22 07:27 Abnormal Lab Findings: Abnormal Labs 02/14/22 02/14/22 02/14/22 21:53 21:53 22:03 WBC 14.2 H Neutrophils # 10.2 H Carbon Dioxide 19 L Glucose 119 H POC Glucose (mg/dL) 113 H U Benzodiazepines Scrn 02/15/22 02/15/22 03:40 07:28 WBC Neutrophils # Carbon Dioxide Glucose POC Glucose (mg/dL) 152 H U Benzodiazepines Scrn Detected H Assessment and Plan Assessment: * Status epilepticus, now resolved. Per nursing report, there is some concern that patient was probably missing the dose of his seizure medications, although he is in the [facility] and medications supervised by the staff. * Seizure disorder since December 2018. * Diabetes * Anxiety, depression Plan: * Wellbutrin can lower seizure threshold. Recommend completely discontinuing Wellbutrin. This was also recommended with the previous hospitalizations in December 2018 and February 2019 as well. * EEG evaluate for epileptiform activity * Continue Keppra. * Keppra level was not obtained in the ER. Patient has received Keppra 1500 mg loading dose. We will try to clean Keppra level from the blood that was drawn prior to patient receiving Keppra loading dose. * We will try to contact patient's guardian as well for obtaining collateral history. * Neurology will follow. Thank you for the consult.
[2022-02-15 12:56] LABS: Glucose,Whole Blood 98 mg/dL (70-110)
[2022-02-15] MEDS ORDERED: OLANZapine 5 MG TAB PO SCH (21:00)
[2022-02-15 22:07] LABS: Glucose,Whole Blood 104 mg/dL (70-110)
[2022-02-16] MEDS: SODIUM CHLORIDE 0.9% 1,000 ML IV SCH ×2 (00:11→07:05)
[2022-02-16] MEDS: HEPARIN SODIUM,PORCINE/PF 5,000 UNIT/0.5 ML SYRINGE SQ SCH ×2 (00:12→10:09)
[2022-02-16 07:09] LABS: Glucose,Whole Blood 86 mg/dL (70-110)
[2022-02-16] MEDS: INSULIN ASPART (NovoLOG) 100 UNIT/ML VIAL SQ SCH ×2 (07:14→13:11)
[2022-02-16 08:07] LABS: Basophils % (A) 0 %; Eosinophils # (A) 0.2 k/uL (0-0.7); Eosinophils % (A) 2 %; HCT 38.7 % (39.0-53.0); HGB 12.5 gm/dL (13.0-17.5); Lymphocytes # (A) 1.8 k/uL (1.0-4.8); Lymphocytes % (A) 17 %; MCH 29.7 pg (25.0-35.0); MCHC 32.2 g/dL (31.0-37.0); MCV 92.2 fL (80.0-100.0); Mean Platelet Volume 6.9; Monocytes # (A) 0.6 k/uL (0-1.0); Monocytes % (A) 6 %; Neutrophils # (A) 7.3 k/uL (1.3-7.7); Neutrophils % (A) 73 %; Platelet Count 161 k/uL (150-450); RDW 13.2 % (11.5-15.5); WBC 10.1 k/uL (3.8-10.6)
[2022-02-16 08:27] LABS: ALT 37 U/L (4-49); AST 49 U/L (17-59); African American GFR (CKD) >90 (>60 ml/min/1.73 sqM); Albumin 3.2 g/dL (3.5-5.0); Alkaline Phosphatase 62 U/L (38-126); Anion Gap 9 mmol/L; Blood Urea Nitrogen 14 mg/dL (9-20); Calcium 7.7 mg/dL (8.4-10.2); Carbon Dioxide 23 mmol/L (22-30); Chloride 105 mmol/L (98-107); Glucose 86 mg/dL (74-99); Magnesium 1.7 mg/dL (1.6-2.3); Non-African American GFR(CKD) 88 (>60 ml/min/1.73 sqM); Phosphorus 2.9 mg/dL (2.5-4.5); Potassium 3.8 mmol/L (3.5-5.1); Sodium 137 mmol/L (137-145); Total Bilirubin 0.6 mg/dL (0.2-1.3); Total Protein 5.9 g/dL (6.3-8.2)
[2022-02-16 08:52] VITALS: RESP 16; TEMP 98.5
[2022-02-16] MEDS: SERTRALINE 50 MG TAB PO SCH ×2 (10:09→10:10)
[2022-02-16] MEDS: levETIRAcetam IV 1,000 MG in SALINE 1 100ML.BAG IVPB SCH (10:09)
[2022-02-16 11:33] VITALS: BP 119/74; PULSE 73
--- NOTE | 2022-02-16 11:45 | P.DS ---
Providers Date of admission: 02/15/22 00:29 Expected date of discharge: 02/16/22 Attending physician: Chon Nickerson MD Consults: 02/14/22 23:20 Consult Physician Routine Consulting Provider: Mauro Fitzpatrick Consult Reason/Comments: sz Do you want consulting provider notified?: Yes Primary care physician: Stated None Hospital Course: Status epilepticus Seizure disorder Leukocytosis DM insulin sliding scale Developmental delay 71 year old male with seizure disorder, developmental delays who is a resident of assisted living facility was sent in here for seizure episode, he had similar presentation about a month ago. Initial plan int ED was to discharge the patient home, however, he then went into more seizure attacks without returning to his baseline consciousness, he was in status epilepticus and admitted for further workup . Workup in the ED included CT brain with no acute pathology. CXR no acute pathology. Bllood work showed elevated WBC. Patient was loaded with keppra and keppra level was drawn to ensure therapeutic level. This was 9. Patient's mentation improved back to baseline by day of discharge. The main concern was that he was still taking his wellbutrin, which it was recommended he stop during last presentation, and this was stopped again this admission. Buspar was also discontinued, zyprexa dose reduced, and celexa added to medications on discharge. I spent 34 minutes coordinating this discharge, discharge date 02/16. Gen: awake, alert HEENT: normocephalic, atraumatic, good hearing acuity, moist mucous membranes Resp: good air exchange, breathing comfortably with no accessory muscle use CVS: good distal perfusion x 4, GI: soft, NTTP, ND : no SPT, no CVAT, hutson catheter not present MSK: no pitting edema, no clubbing Neuro: non-focal, moving all extremities Psych: cooperative, euthymic mood Patient Condition at Discharge: Good Plan - Discharge Summary Discharge Rx Participant: No New Discharge Prescriptions: New Sertraline [Zoloft] 50 mg PO DAILY #30 tab OLANZapine [ZyPREXA] 5 mg PO HS #30 tab Continue metFORMIN HCL ER [Glucophage XR] 500 mg PO BID Sennosides [Senna] 17.2 mg PO HS PRN PRN Reason: Constipation levETIRAcetam [Keppra] 1,000 mg PO Q12HR #60 tab Rosuvastatin [Crestor] 10 mg PO HS lisinopriL 2.5 mg PO DAILY Discontinued busPIRone HCl [Buspar] 10 mg PO TID buPROPion HCL [buPROPion HCL Xl] 150 mg PO DAILY OLANZapine [ZyPREXA] 7.5 mg PO HS Discharge Medication List Sennosides [Senna] 17.2 mg PO HS PRN 07/27/18 [History] metFORMIN HCL ER [Glucophage XR] 500 mg PO BID 07/27/18 [History] levETIRAcetam [Keppra] 1,000 mg PO Q12HR #60 tab 12/27/18 [Rx] Rosuvastatin [Crestor] 10 mg PO HS 02/15/22 [History] lisinopriL 2.5 mg PO DAILY 02/15/22 [History] OLANZapine [ZyPREXA] 5 mg PO HS #30 tab 02/16/22 [Rx] Sertraline [Zoloft] 50 mg PO DAILY #30 tab 02/16/22 [Rx] Follow up Appointment(s)/Referral(s): None,Stated [Primary Care Provider] - 1-2 days Patient Instructions/Handouts: Seizure/Epilepsy Discharge Instructions & Follow-Up
[2022-02-16 12:11] LABS: Glucose,Whole Blood 137 mg/dL (70-110)
--- NOTE | 2022-02-16 13:10 | P.PN ---
Subjective Progress Note Date: 02/16/22 Patient is laying comfortably in bed. Offers no complaints. No further seizures reported since he became stabilized in the ER. His breathing has improved. Offers no complaints. Objective - Vital Signs Vital signs: Vital Signs Temp 98.5 F 02/16/22 08:15 Pulse 73 02/16/22 11:25 Resp 16 02/16/22 11:25 BP 119/74 02/16/22 11:25 Pulse Ox 97 02/16/22 11:25 FiO2 Intake & Output 02/15/22 02/16/22 02/16/22 18:59 06:59 18:59 Intake Total 1530 Balance 1530 Weight 103.2 kg Intake: IV 1530 Sodium Chloride 0.9% 1, 1430 000 ml @ 130 mls/hr IV . Q7H42M [facility] Rx#:[id number] levETIRAcetam IV 1,000 mg 100 In Saline 1 100ml.bag @ 400 mls/hr IVPB Q12HR [facility] Rx#:[id number] Other: Voiding Method Diaper # Voids 1 - Exam Examination remains unchanged. Patient is alert and awake. Patient is laying comfortably in bed. - Labs CBC & Chem 7: 02/16/22 07:27 02/16/22 07:27 Labs: Abnormal Lab Results - Last 24 Hours (Table) 02/16/22 02/16/22 02/16/22 Range/Units 07:27 07:27 12:09 RBC 4.20 L (4.30-5.90) m/uL Hgb 12.5 L (13.0-17.5) gm/dL Hct 38.7 L (39.0-53.0) % POC Glucose (mg/dL) 137 H (70-110) mg/dL Calcium 7.7 L (8.4-10.2) mg/dL Total Protein 5.9 L (6.3-8.2) g/dL Albumin 3.2 L (3.5-5.0) g/dL Assessment and Plan Assessment: * Status epilepticus, now resolved. Per nursing report, there is some concern that patient was probably missing the dose of his seizure medications, although he is in the [place] [facility] and medications supervised by the staff. * Seizure disorder since December 2018. * Diabetes * Anxiety, depression Plan: * Wellbutrin can lower seizure threshold. Recommend completely discontinuing Wellbutrin. This was also recommended with the previous hospitalizations in December 2018 and February 2019 as well. * EEG was mildly abnormal because of mixed frequency activity in fast and slow frequencies suggestive of encephalopathy or medication effect. No epileptiform activity was seen. * Spoke to patient's guardian Mr. Hannah's office, and it appears that patient lives in a "room and board", and gets medication supervised by the staff. They have not heard the patient is not receiving medication on a regular basis (in other words he is compliant with the medication). * Keppra level 9.0 (3-60), suggestive of subtherapeutic dose. We will increase Keppra to 1500 mg twice a day. * Neurologically clear for discharge. Discussed with primary physician.
[2022-02-16] MEDS ORDERED: SENNOSIDES 8.6 MG TAB PO PRN (13:21)
[2022-02-16] MEDS ORDERED: ATORVASTATIN 20 MG TAB PO SCH (21:00)
== END 2022-02-16 14:40 | disposition home or self-care (01) | DRG 101 ==
LOC: EC 21:44 → 3SCARD 02-15 00:29 → 2SICU 02-15 20:41
PROVIDERS: ADMIT Internal Medicine; ATTEND Internal Medicine
DX: G40.401 Other generalized epilepsy and epileptic syndromes, not intractable, with status epilepticus (principal); D72.829 Elevated white blood cell count, unspecified; E11.9 Type 2 diabetes mellitus without complications; F41.9 Anxiety disorder, unspecified; F32.A Depression, unspecified; S00.81XA Abrasion of other part of head, initial encounter; R11.10 Vomiting, unspecified; K59.00 Constipation, unspecified; R62.50 Unspecified lack of expected normal physiological development in childhood; Z79.84 Long term (current) use of oral hypoglycemic drugs; Z79.899 Other long term (current) drug therapy; W19.XXXA Unspecified fall, initial encounter; Z88.0 Allergy status to penicillin
CPT/HCPCS: 36415; 70450; 71045; 72125; 72170; 80053; 80143; 80177; 80179; 80306; 81001; 83735; 84100; 85025; 93005; 95816; 96365; 96366; 96367; 96368; 96372; 96375; 99285

== ENCOUNTER 2023-03-09 10:00 | Observation (INO) | payer MEDICARE, OTHER ==
[2023-03-09 10:13] LABS: Glucose,Whole Blood 118 mg/dL (70-110)
[2023-03-09] MEDS ORDERED: MECLIZINE 12.5 MG TAB PO STA (11:01)
[2023-03-09 12:15] LABS: Basophils % (A) 0 %; Eosinophils # (A) 0.2 k/uL (0-0.7); Eosinophils % (A) 1 %; HCT 41.6 % (39.0-53.0); HGB 14.6 gm/dL (13.0-17.5); Lymphocytes # (A) 2.6 k/uL (1.0-4.8); Lymphocytes % (A) 18 %; MCH 31.8 pg (25.0-35.0); MCHC 35.2 g/dL (31.0-37.0); MCV 90.3 fL (80.0-100.0); Monocytes # (A) 0.9 k/uL (0-1.0); Monocytes % (A) 6 %; Neutrophils # (A) 10.3 k/uL (1.3-7.7); Neutrophils % (A) 73 %; Platelet Count 224 k/uL (150-450); RDW 12.8 % (11.5-15.5); WBC 14.1 k/uL (3.8-10.6)
[2023-03-09 12:34] LABS: ALT 29 U/L (4-49); AST 46 U/L (17-59); African American GFR (CKD) 90 (>60 ml/min/1.73 sqM); Albumin 4.3 g/dL (3.5-5.0); Alkaline Phosphatase 82 U/L (38-126); Anion Gap 10 mmol/L; Blood Urea Nitrogen 20 mg/dL (9-20); Calcium 9.3 mg/dL (8.4-10.2); Carbon Dioxide 27 mmol/L (22-30); Chloride 101 mmol/L (98-107); Glucose 96 mg/dL (74-99); Non-African American GFR(CKD) 77 (>60 ml/min/1.73 sqM); Potassium 4.8 mmol/L (3.5-5.1); Sodium 138 mmol/L (137-145); Total Bilirubin 0.8 mg/dL (0.2-1.3)
--- NOTE | 2023-03-09 12:42 | CT ---
EXAMINATION TYPE: CT brain cspine wo con CT DLP: 1726 mGycm, Automated exposure control for dose reduction was used. DATE OF EXAM: 03/09/2023 12:35 PM COMPARISON: CT brain C-spine 02/14/2022. CLINICAL INDICATION:Male, 72 years old with history of unwitnessed seizure with fall, complains of di zzy; Seizure disorder, had seizure, c/o dizziness TECHNIQUE: Brain: Multiple axial CT images of the brain were obtained without IV contrast. Cspine: Axial CT images from the skull base to the inferior aspect of T2 we obtained without intraven ous contrast. Coronal and sagittal reformatted images were also reviewed. FINDINGS: Brain: Extra-axial spaces: No abnormal extra-axial fluid collections. Ventricular system: Within normal limits Cerebral parenchyma: Cerebral atrophy. No acute intraparenchymal hemorrhage or mass effect. The chance -white junction is well differentiated. Scattered hypoattenuating areas are seen within the white mat ter. Cerebellum: Unremarkable. Mass effect: No evidence of midline shift. Intracranial vasculature: Atherosclerotic calcifications of the intracranial vessels. Soft tissues: Normal. Calvarium/osseous structures: No depressed skull fracture. Paranasal sinuses and mastoid air cells: The air cells are clear. Minimal mucosal thickening of the r ight maxillary sinus. Visualized orbits: Orbital contents are intact. Cervical spine: Fracture: None. Osseous structures: Unremarkable Vertebral alignment: Straightening of the cervical spine which may be due to patient position versus muscle spasm. Spinal canal/Neural Foramina: No evidence of significant spinal canal narrowing. No evidence for sign ificant neural foraminal stenosis. Neck soft tissues: Prevertebral soft tissues are within normal limits. Other: The airway is patent. The lung apices are clear. IMPRESSION: 1. No acute intracranial process. 2. Nonspecific white matter changes, likely secondary to chronic small vessel ischemic disease. 3. No evidence of cervical spine fracture.
[2023-03-09] MEDS ORDERED: LORazepam 2 MG/ML INJ IV STA (12:53)
[2023-03-09] MEDS ORDERED: NALOXONE 0.4 MG/ML 1 ML VIAL IV PRN (14:09)
--- NOTE | 2023-03-09 14:10 | ED ---
Seizure HPI - General Chief Complaint: Seizure Stated Complaint: Seizure Source: EMS Mode of arrival: EMS Limitations: no limitations - History of Present Illness Initial Comments: 72-year-old male with past history of seizure disorder presents to the emergency department with unwitnessed seizure. It is reported from EMS that the patient was found in his room on the ground. He stated that he possibly had a seizure. Patient denies any injuries from the fall. He does not take any blood thinners. He admits that since the seizure happened he feels extremely dizzy when he s tands up. He denies any numbness, tingling or weakness in his extremities. He states that he takes Keppra and reports to me that he did take his medications this morning. Patient resides at [facility] home Upon further discussion with the patient's doctor naturopathic she lays out his medications but does not seem to understand them. Patient's last prescription for Keppra was filled in November. She doesn't know when the last time was that he took his medications and doesn't know if he is even on Keppra - Related Data Home Medications Medication Instructions Recorded Confirmed Sennosides [Senna] 17.2 mg PO HS 07/27/18 03/09/23 metFORMIN HCL ER [Glucophage XR] 1,000 mg PO DAILY 07/27/18 03/09/23 Rosuvastatin [Crestor] 10 mg PO Q2D 02/15/22 03/09/23 FLUoxetine HCL [PROzac] 20 mg PO DAILY 03/09/23 03/09/23 OLANZapine [ZyPREXA] 7.5 mg PO HS 03/09/23 03/09/23 levETIRAcetam [Keppra] 1,000 mg PO BID 03/09/23 03/09/23 Allergies Allergy/AdvReac Type Severity Reaction Status Date / Time Penicillins Allergy Unknown Verified 03/09/23 10:12 Review of Systems ROS Statement: Those systems with pertinent positive or pertinent negative responses have been documented in the HPI. ROS Other: All systems not noted in ROS Statement are negative. Past Medical History Past Medical History: Diabetes Mellitus, Seizure Disorder Additional Past Medical History / Comment(s): NIDDM type II, constipation History of Any Multi-Drug Resistant Organisms: Unobtainable Past Surgical History: Tonsillectomy Past Anesthesia/Blood Transfusion Reactions: No Reported Reaction Past Psychological History: Anxiety, Depression Smoking Status: Never smoker Past Alcohol Use History: None Reported Past Drug Use History: None Reported - Past Family History Father Family Medical History: No Reported History Additional Family Medical History / Comment(s): Pt states his father was healthy Mother Family Medical History: Cancer Additional Family Medical History / Comment(s): Pt states his mother had some form of cancer. General Exam Limitations: physical limitation General appearance: alert, in no apparent distress Head exam: Present: atraumatic, normocephalic, normal inspection Eye exam: Present: normal appearance, PERRL, EOMI. Absent: scleral icterus, conjunctival injection, periorbital swelling ENT exam: Present: normal exam, mucous membranes moist Neck exam: Present: normal inspection. Absent: tenderness, meningismus, lymp hadenopathy Respiratory exam: Present: normal lung sounds bilaterally. Absent: respiratory distress, wheezes, rales, rhonchi, stridor Cardiovascular Exam: Present: regular rate, normal rhythm, normal heart sounds. Absent: systolic murmur, diastolic murmur, rubs, gallop, clicks GI/Abdominal exam: Present: soft, normal bowel sounds. Absent: distended, tenderness, guarding, rebound, rigid Extremities exam: Present: normal inspection, full ROM, normal capillary refill. Absent: tenderness, pedal edema, joint swelling, calf tenderness Back exam: Present: normal inspection Neurological exam: Present: alert, oriented X3, CN II-XII intact Psychiatric exam: Present: normal affect, normal mood Skin exam: Present: warm, dry, intact, normal color. Absent: rash Course Vital Signs 03/09/23 03/09/23 03/09/23 10:10 11:27 12:34 Temperature 98.3 F Pulse Rate 98 80 105 H Respiratory 18 18 30 H Rate Blood Pressure 124/70 127/82 O2 Sat by Pulse 98 99 Oximetry 03/09/23 03/09/23 03/09/23 12:42 13:00 14:57 Temperature Pulse Rate 98 107 H 80 Respiratory 12 18 18 Rate Blood Pressure 154/109 118/84 O2 Sat by Pulse 98 96 Oximetry 03/09/23 03/09/23 03/09/23 15:54 18:08 19:43 Temperature Pulse Rate 79 86 82 Respiratory 18 18 16 Rate Blood Pressure 134/84 109/63 109/63 O2 Sat by Pulse 97 96 97 Oximetry 03/09/23 20:00 Temperature Pulse Rate 81 Respiratory 14 Rate Blood Pressure 117/77 O2 Sat by Pulse 95 Oximetry Medical Decision Making - Medical Decision Making Was pt. sent in by a medical professional or institution (GARRICK Navarro, BOTTLING ROOM WORKER, urgent care, hospital, or shelter...) When possible be specific @ -Patient was sent in by his [facility] home Did you speak to anyone other than the patient for history (EMS, parent, family, police, friend...)? What history was obtained from this source @ -Spoke with EMS Did you review nursing and triage notes (agree or disagree)? Why? @ -I reviewed and agree with nursing and triage notes Were old charts reviewed (outside hosp., previous admission, EMS record, old EKG, old radiological studies, urgent care reports/EKG's, shelter records)? Report findings @ -Reviewed charts from last year when patient was hospitalized for seizure Differential Diagnosis (chest pain, altered mental status, abdominal pain women, abdominal pain men, vaginal bleeding, weakness, fever, dyspnea, syncope, headache, dizziness, GI bleed, back pain, seizure, CVA, palpatations, mental health, musculoskeletal)? @ -Differential Seizure: Recurrent seizure disorder, febrile seizure, alcohol withdrawal, stimulants, meningitis, encephalitis, intercranial hemorrhage, intracranial tumor, stroke, eclampsia, thyrotoxicosis, hypocalcemia, hyponatremia, hypernatremia, hypomagnesemia, psychogenic, this is not meant to be an all-inclusive list. EKG interpreted by me (3pts min.). @ -Yes and demonstrates sinus rhythm with a rate of 83. CO interval 246. QRS 86. QTC of 425. No acute ST segment elevations or depressions X-rays interpreted by me (1pt min.). @ -None done CT interpreted by me (1pt min.). @ -Yes and demonstrates no acute intracranial process U/S interpreted by me (1pt. min.). @ -None done What testing was considered but not performed or refused? (CT, X-rays, U/S, labs)? Why? @ -None What meds were considered but not given or refused? Why? @ -None Did you discuss the management of the patient with other professionals (professionals i.e. GARRICK Navarro, BOTTLING ROOM WORKER, lab, RT, psych nurse, social worker palliative care, slabbing machine operator, teacher, multisensor intelligence officer, watch caser)? Give summary @ -Spoke with Dr. Sagastume Was smoking cessation discussed for >3mins.? @ -No Was critical care preformed (if so, how long)? @ -No Were there social determinants of health that impacted care today? How? (Homelessness, low income, unemployed, alcoholism, drug addiction, transportation, low edu. Level, literacy, decrease access to med. care, fci, rehab)? @ -Patient lives in [facility] home Was there de-escalation of care discussed even if they declined (Discuss DNR or withdrawal of care, Hospice)? DNR status @ -No What co-morbidities impacted this encounter? (DM, HTN, Smoking, COPD, CAD, Cancer, CVA, ARF, Chemo, Hep., AIDS, mental health diagnosis, sleep apnea, morbid obesity)? @ -Developmental delay, epilepsy Was patient admitted / discharged? Hospital course, mention meds given and route, prescriptions, significant lab abnormalities, going to OR and other pertinent info. @ -Upon arrival patient was placed into trauma 4. Thorough history and physical exam was performed. Patient originally reports that he is taking his seizure medication. Laboratory studies were conducted. CT is performed. Patient ends up having a second seizure. We did call his fci. [facility] Consultant is unsure if the patient is taking his medications as directed. He was given a loading dose of Keppra. Recommended admission for 2 breakthrough seizures, neurology consultation as well as evaluating the safety of the patient's current residence and his medication administration Undiagnosed new problem with uncertain prognosis? @ -No Drug Therapy requiring intensive monitoring for toxicity (Heparin, Nitro, Insulin, Cardizem)? @ -No Were any procedures done? @ -No Diagnosis/symptom? @ -Acute breakthrough seizure 2, history of epilepsy, possible medication noncompliance Acute, or Chronic, or Acute on Chronic? @ -acute Uncomplicated (without systemic symptoms) or Complicated (systemic symptoms)? @ -Complicated Side effects of treatment? @ -No Exacerbation, Progression, or Severe Exacerbation? @ -No Poses a threat to life or bodily function? How? (Chest pain, USA, VT, pneumonia, PE, COPD, DKA, ARF, appy, cholecystitis, CVA, Diverticulitis, Homicidal, Suicidal, threat to staff... and all critical care pts) @ -No - Lab Data Result diagrams: 03/10/23 06:40 03/10/23 06:40 Lab Results 03/09/23 03/09/23 03/09/23 Range/Units 10:10 11:38 11:38 WBC 14.1 H (3.8-10.6) k/uL RBC 4.60 (4.30-5.90) m/uL Hgb 14.6 (13.0-17.5) gm/dL Hct 41.6 (39.0-53.0) % MCV 90.3 (80.0-100.0) fL MCH 31.8 (25.0-35.0) pg MCHC 35.2 (31.0-37.0) g/dL RDW 12.8 (11.5-15.5) % Plt Count 224 (150-450) k/uL MPV 8.0 Neutrophils % 73 % Lymphocytes % 18 % Monocytes % 6 % Eosinophils % 1 % Basophils % 0 % Neutrophils # 10.3 H (1.3-7.7) k/uL Lymphocytes # 2.6 (1.0-4.8) k/uL Monocytes # 0.9 (0-1.0) k/uL Eosinophils # 0.2 (0-0.7) k/uL Basophils # 0.0 (0-0.2) k/uL Sodium 138 (137-145) mmol/L Potassium 4.8 (3.5-5.1) mmol/L Chloride 101 (98-107) mmol/L Carbon Dioxide 27 (22-30) mmol/L Anion Gap 10 mmol/L BUN 20 (9-20) mg/dL Creatinine 0.98 (0.66-1.25) mg/dL Est GFR (CKD-EPI)AfAm 90 (>60 ml/min/1.73 sqM) Est GFR (CKD-EPI)NonAf 77 (>60 ml/min/1.73 sqM) Glucose 96 (74-99) mg/dL POC Glucose (mg/dL) 118 H (70-110) mg/dL POC Glu Metal Furniture Panel Coverer ID Denae Reyes Calcium 9.3 (8.4-10.2) mg/dL Magnesium 2.0 (1.6-2.3) mg/dL Total Bilirubin 0.8 (0.2-1.3) mg/dL AST 46 (17-59) U/L ALT 29 (4-49) U/L Alkaline Phosphatase 82 (38-126) U/L Total Protein 8.0 (6.3-8.2) g/dL Albumin 4.3 (3.5-5.0) g/dL Disposition Clinical Impression: Breakthrough seizure Disposition: ADMITTED IP TO THIS [facility] Condition: Stable Is patient prescribed a controlled substance at d/c from ED?: No Time of Disposition: 14:09 Decision to Admit Reason: Admit from EC Decision Date: 03/09/23 Decision Time: 14:09
[2023-03-09] MEDS ORDERED: levETIRAcetam 500 MG TAB PO STA (15:14)
[2023-03-09] MEDS ORDERED: levETIRAcetam IV 500 MG/5 ML VIAL IVP STA (16:39)
[2023-03-09] MEDS ORDERED: levETIRAcetam 500 MG TAB PO SCH (21:00)
[2023-03-09] MEDS: levETIRAcetam IV 500 MG/5 ML VIAL IVP SCH (21:44)
[2023-03-09] MEDS: ATORVASTATIN 20 MG TAB PO SCH (21:44)
[2023-03-09] MEDS: SENNOSIDES 8.6 MG TAB PO SCH (21:44)
[2023-03-09] MEDS: OLANZapine 7.5 MG TAB PO SCH (21:55)
[2023-03-09] MEDS: ENOXAPARIN 40 MG/0.4 ML SYRINGE SQ SCH (23:24)
[2023-03-10 08:02] LABS: Glucose,Whole Blood 84 mg/dL (70-110)
[2023-03-10] MEDS: ENOXAPARIN 40 MG/0.4 ML SYRINGE SQ SCH (08:17)
[2023-03-10] MEDS: metFORMIN 500 MG TAB PO SCH ×2 (08:17→20:34)
[2023-03-10] MEDS: FLUoxetine HCL 20 MG CAP PO SCH (08:17)
[2023-03-10] MEDS: levETIRAcetam IV 500 MG/5 ML VIAL IVP SCH ×2 (08:46→20:35)
[2023-03-10] MEDS ORDERED: MELATONIN 3 MG TABLET PO PRN (10:34)
[2023-03-10] MEDS ORDERED: CALCIUM CARBONATE 500 MG CHEWABLE PO PRN (10:34)
[2023-03-10] MEDS ORDERED: LACTULOSE 20 GM/30 ML CUP PO PRN (10:34)
[2023-03-10] MEDS ORDERED: ACETAMINOPHEN TAB 325 MG TAB PO PRN (10:34)
[2023-03-10] MEDS ORDERED: ONDANSETRON 4 MG/2 ML VIAL IVP PRN (10:34)
[2023-03-10 10:56] LABS: Basophils # (A) 0.03 X 10*3/uL (0.00-0.10); Basophils % (A) 0.3 %; Eosinophils # (A) 0.21 X 10*3/uL (0.04-0.35); Lymphocytes # (A) 2.79 X 10*3/uL (0.90-5.00); Lymphocytes % (A) 26.3 %; MCHC 33.3 d/dL (32.0-37.0); MCV 89.9 FL (80.0-97.0); Mean Platelet Volume 9.7 FL (9.5-12.2); Monocytes # (A) 1.04 X 10*3/uL (0.20-1.00); Monocytes % (A) 9.8 %; NRBC Per 100 WBC 0 X 10*3/uL (0.00-0.01); Neutrophils # (A) 6.51 X 10*3/uL (1.80-7.70); Neutrophils % (A) 61.4 %; Platelet Count 203 X 10*3/uL (140-440); RBC 4.34 X 10*6/uL (4.40-5.60); RDW 12.3 % (11.5-14.5)
[2023-03-10 11:25] LABS: BUN/Creat Ratio 17.89 Ratio (12.00-20.00); Blood Urea Nitrogen 16.1 mg/dL (9.0-27.0); Calcium 8.8 mg/dL (8.7-10.3); Carbon Dioxide 21.9 mmol/L (21.6-31.8); Chloride 101 mmol/L (96-109); Glucose 84 mg/dL (70-110); Potassium 3.7 mmol/L (3.5-5.5); Sodium 136 mmol/L (135-145)
[2023-03-10 11:42] LABS: Glucose,Whole Blood 94 mg/dL (70-110)
--- NOTE | 2023-03-10 11:51 | P.CNNES ---
History of Present Illness Consult date: 03/10/23 Requesting physician: Emerita Harrington Reason for Consult: breakthrough seizure X2 History of Present Illness: This is a 72-year-old gentleman with history of seizures since December 2018, diabetes, anxiety who presented emergency department because of witnessed seizure. History was obtained from medical records and the skilled nursing case manager. It seems the per the ED note seems to the patient was found in his room on the ground possibly had a seizure. And he has been feeling dizzy since the seizure when he stands up. It seems that the patient had possibly 2 seizure-like activities. Per his home medication is seen to the patient is on Keppra 1 g twice a day and per the ED note his last medication that was filled for Keppra w as in November 2022. Unknown exactly when the last time patient was the given the medication. He lives in the room and board and the facility he lives at the staff is a not I since to give medications according to the skilled nursing case manager and the case managerand she stated that was probably last filled probably November of 2022 and was given given for 90 tablets. So possibly the patient did not have medication for at least 3 months at least more. Since she's been in the in the [address] floor no further seizure-like activity. He feels he is doing better. Size of any headache, focal weakness. Of note patient was seen last by Dr. Fitzpatrick neuro-hospitalist in our facility on 02/16/2022 and he stated the patient has status epilepticus which resolved and he recommended discontinuing Wellbutrin and he recommended the patient to be on Keppra 1500 mg twice a day. Please refer to his no for further details. Some other workup during his hospital visit consisted of: Initial white blood cells 14.1 and that was repeated one is 10.6. He had slight minimal increase in neutrophils which resolved. Initial serum glucose is 96 sodium is 138, BUN/creatinine calcium magnesium is within normal limits as well as AST ALT is within normal limits at. CT of the head is reported as no acute intracranial processes. Nonspecific white matter changes, likely secondary to chronic small vessel ischemic disease. I personally reviewed the CT and there is no acute or subacute ischemia and there is no bleed. CT cervical spine was reported as no evidence of cervical spine fracture. Review of Systems The pertinent positive and negative as per HPI. Past Medical History Past Medical History: Diabetes Mellitus, Seizure Disorder Additional Past Medical History / Comment(s): NIDDM type II, constipation History of Any Multi-Drug Resistant Organisms: Unobtainable Past Surgical History: Tonsillectomy Past Anesthesia/Blood Transfusion Reactions: No Reported Reaction Past Psychological History: Anxiety, Depression Additional Psychological History / Comment(s): Pt resides at [facility] (ALEXANDRO Trotter @ [phone]). He uses a walker to ambulate in public only. Staff manage his medications. His legal guardian in [facility]. Smoking Status: Never smoker Past Alcohol Use History: None Reported Past Drug Use History: None Reported - Past Family History Father Family Medical History: No Reported History Additional Family Medical History / Comment(s): Pt states his father was healthy Mother Family Medical History: Cancer Additional Family Medical History / Comment(s): Pt states his mother had some form of cancer. Medications and Allergies Home Medications Medication Instructions Recorded Confirmed Type Sennosides [Senna] 17.2 mg PO HS 07/27/18 03/09/23 History metFORMIN HCL ER [Glucophage XR] 1,000 mg PO DAILY 07/27/18 03/09/23 History Rosuvastatin [Crestor] 10 mg PO Q2D 02/15/22 03/09/23 History FLUoxetine HCL [PROzac] 20 mg PO DAILY 03/09/23 03/09/23 History OLANZapine [ZyPREXA] 7.5 mg PO HS 03/09/23 03/09/23 History levETIRAcetam [Keppra] 1,000 mg PO BID 03/09/23 03/09/23 History Allergies Allergy/AdvReac Type Severity Reaction Status Date / Time Penicillins Allergy Unknown Verified 03/09/23 10:12 Physical Examination - Vital Signs Vital Signs: Vital Signs Temp Pulse Pulse Resp BP BP Pulse Ox 03/10/23 08:12 66 19 03/10/23 07:57 98.1 F 66 19 112/77 95 03/10/23 00:53 98.0 F 75 17 104/64 96 03/09/23 20:47 98.1 F 78 16 109/71 97 03/09/23 20:45 78 16 03/09/23 20:00 81 14 117/77 95 03/09/23 19:43 82 16 109/63 97 03/09/23 18:08 86 18 109/63 96 03/09/23 15:54 79 18 134/84 97 03/09/23 14:57 80 18 118/84 96 03/09/23 13:00 107 H 18 03/09/23 12:42 98 12 154/109 98 03/09/23 12:34 105 H 30 H 99 Intake and Output 03/09/23 03/10/23 03/10/23 22:59 06:59 14:59 Intake Total 600 Output Total 500 Balance -500 600 Intake: Oral 600 Output: Urine 500 Other: Voiding Method Toilet Bedside Commode # Voids 1 Weight 95.708 kg GENERAL: The patient is lying in bed and is not in acute distress. NEUROLOGICAL: Higher mental function: The patient is awake, alert, oriented to self, place. Patient is following simple commands. No aphasia and no neglect. Cranial nerves: The pupils are round, equal and reactive to light. Visual santos are full to confrontation throughout. Extraocular movement is intact no nystagmus is noted. Facial sensation is normal to touch throughout. The facial strength is normal throughout. Hearing is moderately decreased bilaterally to hand rub. Tongue is midline and moved [id number] without any difficulty. No dysarthria is noted. Shoulder shrug is normal bilaterally. Motor: The strength is 5 over 5 throughout. Normal tone and bulk. Cerebellum: Normal finger to nose bilaterally. Sensation: Sensation is normal to touch throughout. Reflexes (right/left): 1+ throughout. Plantars are mute bilaterally. Results - Laboratory Findings CBC and BMP: 03/10/23 06:40 03/10/23 06:40 Abnormal Lab Findings: Abnormal Labs 03/09/23 03/09/23 03/10/23 10:10 11:38 06:40 WBC 14.1 H 10.60 H RBC 4.34 L Hct 39.0 L Neutrophils # 10.3 H Monocytes # 1.04 H Anion Gap POC Glucose (mg/dL) 118 H 03/10/23 06:40 WBC RBC Hct Neutrophils # Monocytes # Anion Gap 13.10 H POC Glucose (mg/dL) Assessment and Plan Assessment: This is a 72-year-old gentleman with history of seizures since 2019 he was seen by the Dr. Fitzpatrick (neuro-hospitalist) about a year ago and it was recommended the patient be on Keppra 1500 mg twice a day which he presented with the reported to seizure-like activity and the patient has not been getting his medication for at least 3 month or more. His last time his Keppra was filled was in November 2022 and he was given a 90 tablet supply. He resides in a room and board house but the staff is not licensed to give medications Breakthrough seizure and was reported to have 2 seizure-like activities: Due to not getting his Keppra--no further seizures in our facility History of seizures in 2019 History of status epilepticus about a year ago History of diabetes History of anxiety Plan: In the ED the patient was given 1 g loading by the ED physician as well as 1 mg of Ativan as well as I gave an additional 500 mg yesterday in the ED. I started the patient on his home medication that was notified by Dr. Longo from a year ago of Keppra 1500 mg twice a day. I ordered Keppra level and is pending No need for an EEG since the patient has known history of seizures and has not been the taking his medication which will not manager materials management. Currently patient is stable. We'll defer the rest of the medical management to primary team Regarding I spent upon discharge will defer that to the case management. Recommend that the patient be in a facility that the he is given the medication and being supervised. Plan discussed with the patient's nurse and skilled nursing case manager Thank you for consultation Time with Patient: Greater than 30
[2023-03-10 17:38] LABS: Glucose,Whole Blood 108 mg/dL (70-110)
--- NOTE | 2023-03-10 19:27 | P.HPIM ---
History of Present Illness H&P Date: 03/10/23 Chief Complaint: Seizure History of presenting complaint: This is a 72-year-old patient who lives at the [facility]. Does use a walker to baseline.. Chronic stable medical conditions include diabetes mellitus, depression and anxiety. By the EMS report: Patient had a seizure the previous night and the staff felt he had not stepped out of bed. Patient does have cognitive impairment. Patient told EMS that he felt funny and wanted to go to the hospital to see her physician. Patient's Prognosis being constantly being adjusted. He was ill 4 in a Mya Coma Scale of 15. He would answer questions appropriately. Additionally per the ER notes patient was found in his room on the ground and was fairly and a possible seizure. 2. Medications typically laid out by the reservations sales agent. Patient did at least couple more seizures in the ER. This morning patient laying in bed. Somewhat awake. Answering questions slowly. He can tell me the place. He thinks his 3. Can tell me the season. Review of systems: GEN.: Tired EYES: [None] HEENT: [None] NECK: [None] RESPIRATORY: [None] CARDIOVASCULAR: [None] GASTROINTESTINAL: [None] GENITOURINARY: [None] MUSCULOSKELETAL: [None] LYMPHATICS: [None] HEMATOLOGICAL: [None] PSYCHIATRY: [Slow to answer questions] NEUROLOGICAL: [None] Past medical history: Diabetes mellitus type 2, constipation, depression, anxiety, cognitive impairment, seizures Social history: Lives at [facility]. Has a walker. Staff manages medications. No smoking or alcohol. Family history: Patient cannot tell Physical examination: VITAL SIGNS: 98.1, 66, spider 19, 11 2 x 77, 95% room air GENERAL: BMI 31.2, reclining in bed awake a bit tired slightly lethargic EYES: Pupils equal. Conjunctiva normal. HEENT: External appearance of nose and ears normal, oral cavity grossly normal. NECK: JVD not raised; masses not palpable. HEART: First and second heart sounds are normal; no edema. LUNGS: Respiratory rate normal; clear to auscultation. ABDOMEN: Soft, nontender, liver spleen not palpable, no masses palpable. PSYCH: Able to answer simple questions. NEUROLOGICAL: Cranial nerves grossly intact; no facial asymmetry, moving all 4 limbs on instructions. LYMPHATICS: No lymph nodes palpable in the axilla and neck INVESTIGATIONS, reviewed in the clinical context: March 10: White count 10.6 hemoglobin 13 platelets 203 potassium 3.7 creatinine 0.9 March 09: White count 14.1 hemoglobin 14.6 platelets 224 potassium 4.8 creatinine 0.98 EKG tracing personally reviewed by me-normal sinus rhythm. CT brain and C-spine without contrast: No fracture. Assessment and plan: -Recurrent tonic-clonic seizures and the patient was started on antiepileptic drugs in December 2018. Keppra dose was increased to the ER. 1500 mg IV twice a day. Neurology following. Neuro checks. -Acute metabolic encephalopathy, post ictal, patient not fully awake -Moderate cognitive impairment, chronic -Diabetes mellitus type 2, on oral hypoglycemic Glucophage. Follow Accu-Cheks and sliding scale -Obesity BMI 31.2 Outpatient weight loss measures -Hyperlipidemia Crestor 10 mg every 2 days -Anxiety depression otherwise specified Prozac. Zyprexa. Past Medical History Past Medical History: Diabetes Mellitus, Seizure Disorder Additional Past Medical History / Comment(s): NIDDM type II, constipation History of Any Multi-Drug Resistant Organisms: Unobtainable Past Surgical History: Tonsillectomy Past Anesthesia/Blood Transfusion Reactions: No Reported Reaction Past Psychological History: Anxiety, Depression Additional Psychological History / Comment(s): Pt resides at [facility] (ALEXANDRO Trotter @ [phone]). He uses a walker to ambulate in public only. Staff manage his medications. His legal guardian in [facility]. Smoking Status: Never smoker Past Alcohol Use History: None Reported Past Drug Use History: None Reported - Past Family History Father Family Medical History: No Reported History Additional Family Medical History / Comment(s): Pt states his father was healthy Mother Family Medical History: Cancer Additional Family Medical History / Comment(s): Pt states his mother had some form of cancer. Medications and Allergies Home Medications Medication Instructions Recorded Confirmed Type Sennosides [Senna] 17.2 mg PO HS 07/27/18 03/09/23 History metFORMIN HCL ER [Glucophage XR] 1,000 mg PO DAILY 07/27/18 03/09/23 History Rosuvastatin [Crestor] 10 mg PO Q2D 02/15/22 03/09/23 History FLUoxetine HCL [PROzac] 20 mg PO DAILY 03/09/23 03/09/23 History OLANZapine [ZyPREXA] 7.5 mg PO HS 03/09/23 03/09/23 History levETIRAcetam [Keppra] 1,000 mg PO BID 03/09/23 03/09/23 History Allergies Allergy/AdvReac Type Severity Reaction Status Date / Time Penicillins Allergy Unknown Verified 03/09/23 10:12 Physical Exam Vitals: Vital Signs Temp Pulse Pulse Resp BP BP Pulse Ox 03/10/23 08:12 66 19 03/10/23 07:57 98.1 F 66 19 112/77 95 03/10/23 00:53 98.0 F 75 17 104/64 96 03/09/23 20:47 98.1 F 78 16 109/71 97 03/09/23 20:45 78 16 03/09/23 20:00 81 14 117/77 95 03/09/23 19:43 82 16 109/63 97 03/09/23 18:08 86 18 109/63 96 03/09/23 15:54 79 18 134/84 97 03/09/23 14:57 80 18 118/84 96 03/09/23 13:00 107 H 18 03/09/23 12:42 98 12 154/109 98 03/09/23 12:34 105 H 30 H 99 03/09/23 11:27 80 18 127/82 03/09/23 10:10 98.3 F 98 18 124/70 98 Intake and Output 03/09/23 03/10/23 03/10/23 22:59 06:59 14:59 Output Total 500 Balance -500 Output: Urine 500 Other: Voiding Method Toilet Bedside Commode Weight 95.708 kg Results CBC & Chem 7: 03/10/23 06:40 03/10/23 06:40 Labs: Abnormal Lab Results - Last 24 Hours (Table) 03/09/23 03/09/23 Range/Units 10:10 11:38 WBC 14.1 H (3.8-10.6) k/uL Neutrophils # 10.3 H (1.3-7.7) k/uL POC Glucose (mg/dL) 118 H (70-110) mg/dL Thrombosis Risk Factor Assmnt - Choose All That Apply Any of the Below Risk Factors Present?: No Other Risk Factors: Yes Each Risk Factor Represents 2 Points: Age 61-74 years Thrombosis Risk Factor Assessment Total Risk Factor Score: 2 Thrombosis Risk Factor Assessment Level: Low Risk
[2023-03-10 20:31] LABS: Glucose,Whole Blood 129 mg/dL (70-110)
[2023-03-10] MEDS: SENNOSIDES 8.6 MG TAB PO SCH (20:34)
[2023-03-10] MEDS: OLANZapine 7.5 MG TAB PO SCH (20:35)
[2023-03-11 07:28] LABS: Glucose,Whole Blood 121 mg/dL (70-110)
[2023-03-11] MEDS: FLUoxetine HCL 20 MG CAP PO SCH (08:56)
[2023-03-11] MEDS: metFORMIN 500 MG TAB PO SCH ×2 (08:56→19:58)
[2023-03-11] MEDS: levETIRAcetam IV 500 MG/5 ML VIAL IVP SCH (08:56)
[2023-03-11] MEDS: ENOXAPARIN 40 MG/0.4 ML SYRINGE SQ SCH (08:56)
[2023-03-11 12:52] LABS: Glucose,Whole Blood 137 mg/dL (70-110)
--- NOTE | 2023-03-11 15:09 | P.PN ---
Subjective Progress Note Date: 03/11/23 I am following-up with patient and no further seizure. He feels he is doing well overall and denies of any further neurological issues. Objective - Vital Signs Vital signs: Vital Signs Temp 97.5 F L 03/11/23 14:00 Pulse 95 03/11/23 14:00 Resp 18 03/11/23 14:00 BP 100/69 03/11/23 14:00 Pulse Ox 96 03/11/23 14:00 FiO2 Intake & Output 03/10/23 03/11/23 03/11/23 18:59 06:59 18:59 Intake Total 600 Balance 600 Intake: Oral 600 Other: Voiding Method Bedside Commode Bedside Commode Bedside Commode Urinal Urinal # Voids 3 1 2 - Exam GENERAL: The patient is lying in bed and is not in acute distress. NEUROLOGICAL: Higher mental function: The patient is awake, alert, oriented to self, place. Patient is following simple commands. No aphasia and no neglect. Cranial nerves: The pupils are round, equal and reactive to light. Visual santos are full to confrontation throughout. Extraocular movement is intact no nystagmus is noted. Facial sensation is normal to touch throughout. The facial strength is normal throughout. Hearing is moderately decreased bilaterally to hand rub. Tongue is midline and moved [id number] without any difficulty. No dysarthria is noted. Shoulder shrug is normal bilaterally. Motor: The strength is 5 over 5 throughout. Normal tone and bulk. Cerebellum: Normal finger to nose bilaterally. Sensation: Sensation is normal to touch throughout. Reflexes (right/left): 1+ throughout. Plantars are mute bilaterally. Some other workup during his hospital visit consisted of: Initial white blood cells 14.1 and that was repeated one is 10.6. He had slight minimal increase in neutrophils which resolved. Initial serum glucose is 96 sodium is 138, BUN/creatinine calcium magnesium is within normal limits as well as AST ALT is within normal limits at. CT of the head is reported as no acute intracranial processes. Nonspecific white matter changes, likely secondary to chronic small vessel ischemic disease. I personally reviewed the CT and there is no acute or subacute ischemia and there is no bleed. CT cervical spine was reported as no evidence of cervical spine fracture. - Labs CBC & Chem 7: 03/10/23 06:40 03/10/23 06:40 Labs: Abnormal Lab Results - Last 24 Hours (Table) 03/10/23 03/11/23 03/11/23 Range/Units 20:30 07:25 12:51 POC Glucose (mg/dL) 129 H 121 H 137 H (70-110) mg/dL Assessment and Plan Assessment: This is a 72-year-old gentleman with history of seizures since 2019 he was seen by the Dr. Fitzpatrick (neuro-hospitalist) about a year ago and it was recommended the patient be on Keppra 1500 mg twice a day which he presented with the reported to seizure-like activity and the patient has not been getting his medication for at least 3 month or more. His last time his Keppra was filled was in November 2022 and he was given a 90 tablet supply. He resides in a room and board house but the staff is not licensed to give medications Breakthrough seizure and was reported to have 2 seizure-like activities: Due to not getting his Keppra--no further seizures in our facility History of seizures in 2019 History of status epilepticus about a year ago History of diabetes History of anxiety Plan: In the ED the patient was given 1 g loading by the ED physician as well as 1 mg of Ativan as well as I gave an additional 500 mg yesterday in the ED. I started the patient on his home medication that was notified by Dr. Fitzpatrick from a year ago of Keppra 1500 mg twice a day. Keppra level is 18.8 (normal is 3-60) and his level was after he received loading Keppra 1gm in ED. No need for an EEG since the patient has known history of seizures and has not been the taking his medication which will not change management specialist. Currently patient is stable. We'll defer the rest of the medical management to primary team Regarding I spent upon discharge will defer that to the case management. Recommend that the patient be in a facility that the he is given the medication and being supervised. There is no further neurological work-up. Will sign off. Please reconsult neurology team if any further concerns. Time with Patient: Less than 30
--- NOTE | 2023-03-11 16:40 | P.PN ---
Progress Note - Text Progress Note Date: 03/11/23 Chief Complaint: Seizure History of presenting complaint: This is a 72-year-old patient who lives at the [facility] assisted living. Does use a walker to baseline.. Chronic stable medical conditions include diabetes mellitus, depression and anxiety. By the EMS report: Patient had a seizure the previous night and the staff felt he had not stepped out of bed. Patient does have cognitive impairment. Patient told EMS that he felt funny and wanted to go to the hospital to see her physician. Patient's Prognosis being constantly being adjusted. He was ill 4 in a Mya Coma Scale of 15. He would answer questions appropriately. Additionally per the ER notes patient was found in his room on the ground and was fairly and a possible seizure. 2. Medications typically laid out by the data collection technician. Patient did at least couple more seizures in the ER. This morning patient laying in bed. Somewhat awake. Answering questions slowly. He can tell me the place. He thinks his 3. Can tell me the season. March 11: Comfortable. Watching television. Keppra 1500 mg every 12. Neurology signed off. Spoke to nurse Lopez. manager combination has gone for the day. Patient be going to a different assisted living. Active Medications Acetaminophen (Acetaminophen Tab 325 Mg Tab) 650 mg PO Q6HR PRN PRN Reason: Mild Pain or Fever > 100.5 Atorvastatin Calcium (Atorvastatin 20 Mg Tab) 20 mg PO Q2D [facility] Last Admin: 03/09/23 21:44 Dose: 20 mg Calcium Carbonate/Glycine (Calcium Carbonate 500 Mg Chewable) 1,000 mg PO Q4HR PRN PRN Reason: Dyspepsia Enoxaparin Sodium (Enoxaparin 40 Mg/0.4 Ml Syringe) 40 mg SQ DAILY [facility] Last Admin: 03/11/23 08:56 Dose: 40 mg Fluoxetine HCl (Fluoxetine Hcl 20 Mg Cap) 20 mg PO DAILY [facility] Last Admin: 03/11/23 08:56 Dose: 20 mg Lactulose (Lactulose 20 Gm/30 Ml Cup) 20 gm PO DAILY PRN PRN Reason: Constipation Levetiracetam (Levetiracetam Iv 500 Mg/5 Ml Vial) 1,500 mg IVP Q12HR [facility] Last Admin: 03/11/23 08:56 Dose: 1,500 mg Melatonin (Melatonin 3 Mg Tablet) 3 mg PO HS PRN PRN Reason: Insomnia Metformin HCl (Metformin 500 Mg Tab) 500 mg PO BID [facility] Last Admin: 03/11/23 08:56 Dose: 500 mg Naloxone HCl (Naloxone 0.4 Mg/Ml 1 Ml Vial) 0.2 mg IV Q2M PRN PRN Reason: Opioid Reversal Olanzapine (Olanzapine 7.5 Mg Tab) 7.[address] [facility] Last Admin: 03/10/23 20:35 Dose: 7.5 mg Ondansetron HCl (Ondansetron 4 Mg/2 Ml Vial) 4 mg IVP Q8HR PRN PRN Reason: Nausea And Vomiting Senna (Sennosides 8.6 Mg Tab) 17.[address] [facility] Last Admin: 03/10/23 20:34 Dose: 17.2 mg Past medical history: Diabetes mellitus type 2, constipation, depression, anxiety, cognitive impairment, seizures Social history: Lives at [facility] assisted living. Has a walker. Staff manages medications. No smoking or alcohol. Family history: Patient cannot tell Physical examination: VITAL SIGNS: In 7.5, 95, 18, 100/69, 96% room air GENERAL: , reclining in bed awake a bit tired EYES: Pupils equal. Conjunctiva normal. HEENT: External appearance of nose and ears normal, oral cavity grossly normal. NECK: JVD not raised; masses not palpable. HEART: First and second heart sounds are normal; no edema. LUNGS: Respiratory rate normal; clear to auscultation. ABDOMEN: Soft, nontender, liver spleen not palpable, no masses palpable. PSYCH: Able to answer simple questions. NEUROLOGICAL: Cranial nerves grossly intact; no facial asymmetry, moving all 4 limbs on instructions. INVESTIGATIONS, reviewed in the clinical context: March 10: White count 10.6 hemoglobin 13 platelets 203 potassium 3.7 creatinine 0.9 March 09: White count 14.1 hemoglobin 14.6 platelets 224 potassium 4.8 cr eatinine 0.98 EKG tracing personally reviewed by me-normal sinus rhythm. CT brain and C-spine without contrast: No fracture. Assessment and plan: -Recurrent tonic-clonic seizures and the patient was started on antiepileptic drugs in December 2018. Keppra 1500 mg twice a day. Neurology signed off. -Acute metabolic encephalopathy, post ictal, patient not fully awake: Better -Moderate cognitive impairment, chronic -Diabetes mellitus type 2, on oral hypoglycemic Glucophage. Follow Accu-Cheks and sliding scale -Obesity BMI 31.2 Outpatient weight loss measures -Hyperlipidemia Crestor 10 mg every 2 days -Anxiety depression otherwise specified Prozac. Zyprexa. Patient is supposed to go to different assisted living. manager combination to assist with the same when available. Past Medical History Past Medical History: Diabetes Mellitus, Seizure Disorder Additional Past Medical History / Comment(s): NIDDM type II, constipation History of Any Multi-Drug Resistant Organisms: Unobtainable Past Surgical History: Tonsillectomy Past Anesthesia/Blood Transfusion Reactions: No Reported Reaction Past Psychological History: Anxiety, Depression Additional Psychological History / Comment(s): Pt resides at [facility] (ALEXANDRO Trotter @ [phone]). He uses a walker to ambulate in public only. Staff manage his medications. His legal guardian in [facility]. Smoking Status: Never smoker Past Alcohol Use History: None Reported Past Drug Use History: None Reported - Past Family History Father Family Medical History: No Reported History Additional Family Medical History / Comment(s): Pt states his father was healthy Mother Family Medical History: Cancer Additional Family Medical History / Comment(s): Pt states his mother had some form of cancer.
[2023-03-11 17:19] LABS: Glucose,Whole Blood 113 mg/dL (70-110)
[2023-03-11] MEDS: levETIRAcetam 500 MG TAB PO SCH (19:57)
[2023-03-11] MEDS: SENNOSIDES 8.6 MG TAB PO SCH (19:57)
[2023-03-11] MEDS: ATORVASTATIN 20 MG TAB PO SCH (19:58)
[2023-03-11] MEDS: OLANZapine 7.5 MG TAB PO SCH (19:58)
[2023-03-11 20:34] LABS: Glucose,Whole Blood 102 mg/dL (70-110)
[2023-03-12 07:30] LABS: Glucose,Whole Blood 103 mg/dL (70-110)
[2023-03-12] MEDS: FLUoxetine HCL 20 MG CAP PO SCH (08:50)
[2023-03-12] MEDS: ENOXAPARIN 40 MG/0.4 ML SYRINGE SQ SCH (08:50)
[2023-03-12] MEDS: metFORMIN 500 MG TAB PO SCH ×2 (08:50→21:55)
[2023-03-12] MEDS: levETIRAcetam 500 MG TAB PO SCH ×2 (08:50→21:55)
[2023-03-12 12:11] LABS: Glucose,Whole Blood 85 mg/dL (70-110)
[2023-03-12 17:42] LABS: Glucose,Whole Blood 107 mg/dL (70-110)
--- NOTE | 2023-03-12 20:49 | P.PN ---
Progress Note - Text Progress Note Date: 03/12/23 Chief Complaint: Seizure History of presenting complaint: This is a 72-year-old patient who lives at the [facility] assisted living. Does use a walker to baseline.. Chronic stable medical conditions include diabetes mellitus, depression and anxiety. By the EMS report: Patient had a seizure the previous night and the staff felt he had not stepped out of bed. Patient does have cognitive impairment. Patient told EMS that he felt funny and wanted to go to the hospital to see her physician. Patient's Prognosis being constantly being adjusted. He was ill 4 in a Mya Coma Scale of 15. He would answer questions appropriately. Additionally per the ER notes patient was found in his room on the ground and was fairly and a possible seizure. 2. Medications typically laid out by the goat herder. Patient did at least couple more seizures in the ER. This morning patient laying in bed. Somewhat awake. Answering questions slowly. He can tell me the place. He thinks his 1923. Can tell me the season. March 11: Comfortable. Watching television. Keppra 1500 mg every 12. Neurology signed off. Spoke to nurse Lopez. prototype engineer manager has gone for the day. Patient be going to a different assisted living. March 12: Comfortable. Eating well. Pending placement. On Keppra. Active Medications Acetaminophen (Acetaminophen Tab 325 Mg Tab) 650 mg PO Q6HR PRN PRN Reason: Mild Pain or Fever > 100.5 Atorvastatin Calcium (Atorvastatin 20 Mg Tab) 20 mg PO Q2D [facility] Last Admin: 03/11/23 19:58 Dose: 20 mg Calcium Carbonate/Glycine (Calcium Carbonate 500 Mg Chewable) 1,000 mg PO Q4HR PRN PRN Reason: Dyspepsia Enoxaparin Sodium (Enoxaparin 40 Mg/0.4 Ml Syringe) 40 mg SQ DAILY [facility] Last Admin: 03/12/23 08:50 Dose: 40 mg Fluoxetine HCl (Fluoxetine Hcl 20 Mg Cap) 20 mg PO DAILY [facility] Last Admin: 03/12/23 08:50 Dose: 20 mg Lactulose (Lactulose 20 Gm/30 Ml Cup) 20 gm PO DAILY PRN PRN Reason: Constipation Levetiracetam (Levetiracetam 500 Mg Tab) 1,500 mg PO Q12HR [facility] Last Admin: 03/12/23 08:50 Dose: 1,500 mg Melatonin (Melatonin 3 Mg Tablet) 3 mg PO HS PRN PRN Reason: Insomnia Metformin HCl (Metformin 500 Mg Tab) 500 mg PO BID [facility] Last Admin: 03/12/23 08:50 Dose: 500 mg Naloxone HCl (Naloxone 0.4 Mg/Ml 1 Ml Vial) 0.2 mg IV Q2M PRN PRN Reason: Opioid Reversal Olanzapine (Olanzapine 7.5 Mg Tab) 7.5 mg PO [facility] Last Admin: 03/11/23 19:58 Dose: 7.5 mg Ondansetron HCl (Ondansetron 4 Mg/2 Ml Vial) 4 mg IVP Q8HR PRN PRN Reason: Nausea And Vomiting Senna (Sennosides 8.6 Mg Tab) 17.2 mg PO [facility] Last Admin: 03/11/23 19:57 Dose: 17.2 mg Past medical history: Diabetes mellitus type 2, constipation, depression, anxiety, cognitive impairment, seizures Social history: Lives at [facility] living. Has a walker. Staff manages medications. No smoking or alcohol. Family history: Patient cannot tell Physical examination: VITAL SIGNS: 97.8, 64, 18, 115/73, 92% room air GENERAL: , reclining in bed awake , comfortable EYES: Pupils equal. Conjunctiva normal. HEENT: External appearance of nose and ears normal, oral cavity grossly normal. NECK: JVD not raised; masses not palpable. HEART: First and second heart sounds are normal; no edema. LUNGS: Respiratory rate normal; clear to auscultation. ABDOMEN: Soft, nontender, liver spleen not palpable, no masses palpable. PSYCH: Able to answer simple questions. NEUROLOGICAL: Cranial nerves grossly intact; no facial asymmetry, moving all 4 limbs on instructions. INVESTIGATIONS, reviewed in the clinical context: March 10: White count 10.6 hemoglobin 13 platelets 203 potassium 3.7 creatinine 0.9 March 09: White count 14.1 hemoglobin 14.6 platelets 224 potassium 4.8 creatinine 0.98 EKG tracing personally reviewed by me-normal sinus rhythm. CT brain and C-spine without contrast: No fracture. Assessment and plan: -Recurrent tonic-clonic seizures and the patient was started on antiepileptic drugs in December 2018. Keppra 1500 mg twice a day. Seen by neurology -Acute metabolic encephalopathy, post ictal, patient not fully awake: Improved -Moderate cognitive impairment, chronic -Diabetes mellitus type 2, on oral hypoglycemic Glucophage. Follow Accu-Cheks and sliding scale -Obesity BMI 31.2 Outpatient weight loss measures -Hyperlipidemia Crestor 10 mg every 2 days -Anxiety depression otherwise specified Prozac. Zyprexa. Pending placement to do assisted living. Otherwise stable for discharge. Past Medical History Past Medical History: Diabetes Mellitus, Seizure Disorder Additional Past Medical History / Comment(s): NIDDM type II, constipation History of Any Multi-Drug Resistant Organisms: Unobtainable Past Surgical History: Tonsillectomy Past Anesthesia/Blood Transfusion Reactions: No Reported Reaction Past Psychological History: Anxiety, Depression Additional Psychological History / Comment(s): Pt resides at [facility] (ALEXANDRO Trotter @ [phone]). He uses a walker to ambulate in public only. Staff manage his medications. His legal guardian in [facility]. Smoking Status: Never smoker Past Alcohol Use History: None Reported Past Drug Use History: None Reported - Past Family History Father Family Medical History: No Reported History Additional Family Medical History / Comment(s): Pt states his father was healthy Mother Family Medical History: Cancer Additional Family Medical History / Comment(s): Pt states his mother had some form of cancer.
[2023-03-12 21:16] LABS: Glucose,Whole Blood 141 mg/dL (70-110)
[2023-03-12] MEDS: OLANZapine 7.5 MG TAB PO SCH (21:55)
[2023-03-12] MEDS: SENNOSIDES 8.6 MG TAB PO SCH (21:55)
[2023-03-13 08:07] VITALS: BP 115/82; PULSE 90; RESP 20; TEMP 97.8
[2023-03-13 08:14] LABS: Glucose,Whole Blood 130 mg/dL (70-110)
[2023-03-13] MEDS: levETIRAcetam 500 MG TAB PO SCH (08:25)
[2023-03-13] MEDS: ENOXAPARIN 40 MG/0.4 ML SYRINGE SQ SCH (08:26)
[2023-03-13] MEDS: metFORMIN 500 MG TAB PO SCH (08:26)
[2023-03-13] MEDS: FLUoxetine HCL 20 MG CAP PO SCH (08:26)
[2023-03-13 11:54] LABS: Glucose,Whole Blood 85 mg/dL (70-110)
--- NOTE | 2023-03-13 20:22 | P.DS ---
Providers Date of admission: 03/09/23 14:14 Expected date of discharge: 03/13/23 Attending physician: Fabio Sagastume Consults: 03/09/23 14:09 Consult Physician Urgent Consulting Provider: Tavo Watts Consult Reason/Comments: breakthrough seizure x 2 Do you want consulting provider notified?: Yes Primary care physician: Ephraim Early MD Hospital Course: Chief Complaint: Seizure History of presenting complaint: This is a 72-year-old patient who lives at the [facility]. Does use a walker to baseline.. Chronic stable medical conditions include diabetes mellitus, depression and anxiety. By the EMS report: Patient had a seizure the previous night and the staff felt he had not stepped out of bed. Patient does have cognitive impairment. Patient told EMS that he felt funny and wanted to go to the hospital to see her physician. Patient's Prognosis being constantly being adjusted. He was ill 4 in a [place] Coma Scale of 15. He would answer questions appropriately. Additionally per the ER notes patient was found in his room on the ground and was fairly and a possible seizure. 2. Medications typically laid out by the medical records analyst. Patient did at least couple more seizures in the ER. This morning patient laying in bed. Somewhat awake. Answering questions slowly. He can tell me the place. He thinks his 1923. Can tell me the season. March 11: Comfortable. Watching television. Keppra 1500 mg every 12. Neurology signed off. Spoke to nurse Lopez. production service manager has gone for the day. Patient be going to a different assisted living. March 12: Comfortable. Eating well. Pending placement. On Keppra. March 13: Spoke with licensed clinical social worker. She had spoken to but she meant the guardian. He confirmed patient return to [facility] board. Until they find a new place. Patient comfortable. Eating. Past medical history: Diabetes mellitus type 2, constipation, depression, anxiety, cognitive impairment, seizures Social history: Lives at [facility]. Has a walker. Staff manages medications. No smoking or alcohol. Family history: Patient cannot tell Physical examination: VITAL SIGNS: 97.8, 90, 20, 1 [birth year]16/1981, 96% room air GENERAL: , reclining in bed awake , comfortable EYES: Pupils equal. Conjunctiva normal. HEENT: External appearance of nose and ears normal, oral cavity grossly normal. NECK: JVD not raised; masses not palpable. HEART: First and second heart sounds are normal; no edema. LUNGS: Respiratory rate normal; clear to auscultation. ABDOMEN: Soft, nontender, liver spleen not palpable, no masses palpable. PSYCH: Able to answer simple questions. NEUROLOGICAL: Cranial nerves grossly intact; no facial asymmetry, moving all 4 limbs on instructions. INVESTIGATIONS, reviewed in the clinical context: March 10: White count 10.6 hemoglobin 13 platelets 203 potassium 3.7 creatinine 0.9 March 09: White count 14.1 hemoglobin 14.6 platelets 224 potassium 4.8 creatinine 0.98 EKG tracing personally reviewed by me-normal sinus rhythm. CT brain and C-spine without contrast: No fracture. Assessment and plan: -Recurrent tonic-clonic seizures and the patient was started on antiepileptic drugs in December 2018. Keppra 1500 mg twice a day. Seen by neurology Follow-up outpatient neurology -Acute metabolic encephalopathy, post ictal, patient not fully awake: Improved -Moderate cognitive impairment, chronic -Diabetes mellitus type 2, on oral hypoglycemic Glucophage. Follow Accu-Cheks and sliding scale -Obesity BMI 31.2 Outpatient weight loss measures -Hyperlipidemia Crestor 10 mg every 2 days -Anxiety depression otherwise specified Prozac. Zyprexa. Disposition: [facility] room and board Plan - Discharge Summary Discharge Rx Participant: Yes New Discharge Prescriptions: Continue metFORMIN HCL ER [Glucophage XR] 1,000 mg PO DAILY Sennosides [Senna] 17.2 mg PO HS Rosuvastatin [Crestor] 10 mg PO Q2D FLUoxetine HCL [PROzac] 20 mg PO DAILY OLANZapine [ZyPREXA] 7.5 mg PO HS Changed levETIRAcetam [Keppra] 1,500 mg PO BID #60 tab Discharge Medication List Sennosides [Senna] 17.2 mg PO HS 07/27/18 [History] metFORMIN HCL ER [Glucophage XR] 1,000 mg PO DAILY 07/27/18 [History] Rosuvastatin [Crestor] 10 mg PO Q2D 02/15/22 [History] FLUoxetine HCL [PROzac] 20 mg PO DAILY 03/09/23 [History] OLANZapine [ZyPREXA] 7.5 mg PO HS 03/09/23 [History] levETIRAcetam [Keppra] 1,500 mg PO BID #60 tab 03/13/23 [Rx] Follow up Appointment(s)/Referral(s): neurologist,own [Other] - 2 Weeks Ephraim Early MD [Primary Care Provider] - 03/14/23 (The office will call with a time frame.) Patient Instructions/Handouts: Seizure/Epilepsy Discharge Instructions & Follow-Up Discharge Disposition: HOME SELF-CARE
== END 2023-03-13 13:40 | disposition home or self-care (01) ==
LOC: EC 10:00 → EEVIPCON 14:14 → OBSVTOIN 14:14 → 5NMEDONC 14:14 → INTOOBSV 14:14 → 5NMEDONC 18:04 → UNDODISIN 03-13 13:40
PROVIDERS: ADMIT Hospitalist; ATTEND Hospitalist
DX: G40.409 Other generalized epilepsy and epileptic syndromes, not intractable, without status epilepticus (principal); G93.41 Metabolic encephalopathy; E11.9 Type 2 diabetes mellitus without complications; G31.84 Mild cognitive impairment of uncertain or unknown etiology; E78.5 Hyperlipidemia, unspecified; R62.50 Unspecified lack of expected normal physiological development in childhood; K59.00 Constipation, unspecified; F32.A Depression, unspecified; F41.9 Anxiety disorder, unspecified; E66.9 Obesity, unspecified; Z68.31 Body mass index [BMI] 31.0-31.9, adult; Z79.84 Long term (current) use of oral hypoglycemic drugs; Z79.899 Other long term (current) drug therapy; Z88.0 Allergy status to penicillin; Z98.890 Other specified postprocedural states; Z80.9 Family history of malignant neoplasm, unspecified
CPT/HCPCS: 96376 ×3; 96372 ×5; 96374; 99285; 36415; 93005; 80053; 80048; 80177; 83735; 85025 ×2; 72125; 70450; G0378 ×5; J1650 ×5; J1953 ×3

== ENCOUNTER 2024-03-13 07:23 | Day surgery (SDC) | payer MEDICARE, OTHER ==
[2024-03-12 10:31] VITALS: BMI 34.5
[~2024-03-13 07:23] MED LIST: LACTATED RINGERS 1,000 ML IV SCH; LIDOCAINE 1% (10MG/ML) FOR IV START INTRADERMA PRN
[2024-03-13 07:53] VITALS: TEMP 97
[2024-03-13 08:08] LABS: Glucose,Whole Blood 118 mg/dL (70-110)
[2024-03-13] MEDS: LACTATED RINGERS 1,000 ML IV SCH (08:09)
[2024-03-13] MEDS: IV FLUID CONTINUATION 1,000 ML IV ONE (08:10)
[2024-03-13] MEDS ORDERED: PROPOFOL 10 MG/ML 20 ML VIAL IV ONE (08:26)
--- NOTE | 2024-03-13 08:50 | P.PCN ---
Date of Procedure: 03/13/24 Procedure(s) Performed: BRIEF HISTORY: Patient is a 73-year-old pleasant white male scheduled for an elective colonoscopy as a part of screening for colon cancer. PROCEDURE PERFORMED: Colonoscopy with snare polypectomy. PREOPERATIVE DIAGNOSIS: Screening for colon cancer. IV sedation per Anesthesia. PROCEDURE: After informed consent was obtained, the patient, was brought into the endoscopy unit. IV sedation was administered by Anesthesia under continuous monitoring. Digital rectal examination was normal. Initially the Olympus CF-160 flexible video colonoscope was then inserted in the rectum, gradually advanced into the cecum without any difficulty. Careful examination was performed as the scope was gradually being withdrawn. Ileocecal valve and the appendiceal orifice were visualized and appeared normal. Prep was excellent. Mucosa of the cecum, ascending colon, appeared normal. The hepatic flexure there was a 1 cm flat polyp removed by snare polypectomy. Rest of the transverse colon, descending colon, sigmoid colon, and rectum appeared normal. Distal rectum there was a 3 mm sessile polyp removed by cold snare polypectomy. Retroflexion was performed in the rectum and no lesions were seen. The patient tolerated the procedure well. IMPRESSION: 1 cm flat hepatic flexure polyp status post snare polypectomy 3 mm distal rectal polyp status post polypectomy RECOMMENDATIONS: Findings of this examination were discussed with the patient as well as his family.. He was advised to follow-up with the biopsy results. If the biopsy is adenoma he can have repeat colonoscopy in 3 years
[2024-03-13 08:56] VITALS: RESP 16
[2024-03-13 09:16] VITALS: BP 108/73; PULSE 70
== END 2024-03-13 10:00 | disposition home or self-care (01) ==
LOC: ORWHC2ENDO 07:23
PROVIDERS: ATTEND Internal Medicine Gastroenterology
DX: Z12.11 Encounter for screening for malignant neoplasm of colon
CPT/HCPCS: 45385; 88305